=== PATIENT | male | born 1995 | race Hispanic/Latino ===

== ENCOUNTER 2017-10-09 20:20 | Emergency (ER) | payer SELFPAY ==
--- NOTE | 2017-10-09 21:36 | EDPHYS ---
Physician Documentation [facility] Name: Chang Cr Age: 22 yrs Sex: Male : 1995 Arrival Date: 10/09/2017 Time: 20:33 Bed 14 Private MD: ED Physician Toribio Maurice HPI: 10/09 20:47 This 22 yrs old Male presents to ER via Ambulatory with complaints of Ear Pain.cp 20:47 The patient presents with pain. cp 20:47 The complaints affect the right ear and left ear. cp 20:47 Onset: The symptoms/episode began/occurred gradually. Associated signs and symptoms: cp Pertinent negatives: cough, fever, sinus trouble, sore throat, vomiting. Severity of symptoms: in the emergency department the symptoms are unchanged despite home interventions. Historical: - Allergies: 20:34 No Known Allergies; lk1 - PMHx: 20:34 Depression; Hypothyroidism; lk1 - PSHx: 20:34 None; lk1 - Immunization history:: Adult Immunizations up to date. - Social history:: Smoking status: Patient uses tobacco products, smokes one-half pack cigarettes per day. ROS: 20:50 Constitutional: Negative for body aches, chills, fever, poor PO intake. cp 20:50 Eyes: Negative for injury, pain, redness, and discharge. cp 20:50 ENT: Positive for ear pain, Negative for drainage from ear(s), sinus congestion, sinus pain, sore throat, difficulty swallowing, difficulty handling secretions. 20:50 Cardiovascular: Negative for chest pain. 20:50 Respiratory: Negative for cough, wheezing. 20:50 Abdomen/GI: Negative for abdominal pain, vomiting, diarrhea, constipation. 20:50 Skin: Negative for cellulitis, rash. 20:50 Neuro: Negative for headache. 20:50 All other systems are negative. Exam: 20:56 Head/Face: Normocephalic, atraumatic. cp 20:56 Constitutional: The patient appears in no acute distress, alert, awake, non-toxic, well developed, well nourished. 20:56 Eyes: Periorbital structures: appear normal, Pupils: equal, round, and reactive to light and accomodation, Extraocular movements: intact throughout, Conjunctiva: normal, no exudate, no injection, Sclera: no appreciated abnormality, Lids and lashes: appear normal, bilaterally. 20:56 ENT: External ear(s): are unremarkable, Ear canal(s): cerumen impaction, that is moderate, bilaterally, TM's: not visable, because of cerumen, Nose: is normal, Mouth: Lips: moist, Oral mucosa: moist, Posterior pharynx: Airway: no evidence of obstruction, patent, Tonsils: are normal in appearance, Uvula: midline, non-edematous, no erythema, swelling, is not appreciated, erythema, is not appreciated, exudate, is not appreciated, Voice: is normal. 20:56 Neck: ROM/movement: is normal, is supple, without pain, no range of motions limitations, no nuchal rigidity, Lymph nodes: no appreciated lymphadenopathy. 20:56 Chest/axilla: Inspection: normal, Palpation: is normal, no crepitus, no tenderness. 20:56 Cardiovascular: Rate: normal, Rhythm: regular. 20:56 Respiratory: the patient does not display signs of respiratory distress, Respirations: normal, no use of accessory muscles, no retractions, no splinting, no tachypnea, Breath sounds: are clear throughout, no decreased breath sounds, no stridor, no wheezing. 20:56 Abdomen/GI: Exam negative for discomfort, distension, guarding, Inspection: abdomen appears normal. 20:56 Skin: cellulitis, is not appreciated, no rash present. Vital Signs: 20:35 BP 169 / 92; Pulse 95; Resp 16; Temp 98.2(O); Pulse Ox 99% on R/A; Weight 77.11 kg (R); lk1 Height 5 ft. 8 in. (172.72 cm) (R); Pain 5/10; 20:35 Body Mass Index 25.85 (77.11 kg, 172.72 cm) lk1 MDM: 20:40 Patient medically screened. cp 21:01 Data reviewed: vital signs, nurses notes, and as a result, I will discharge patient. cp Administered Medications: No medications were administered Disposition: 21:17 Cerumen Impaction. cp 23:19 Co-signature as Attending Physician, Toribio Maurice MD. rn Disposition: 10/09/17 21:36 Discharged to Home as Medical Screen. Impression: Impacted cerumen, bilateral. - Condition is Stable. - Discharge Instructions: Cerumen Impaction. - Work release form, Medication Reconciliation Form, Thank You Letter, Antibiotic Education, Prescription Opioid Use form. - Follow up: Ashley Fay; When: Tomorrow; Reason: Recheck today's complaints. - Problem is new. - Symptoms are unchanged. Signatures: Toribio Maurice MD MD rn Sandro Babb PA PA cp Kluge, Leah RN RN lk1 Jennifer Mayers RN RN bs1
--- NOTE | 2017-10-09 21:36 | ER ---
Nurse's Notes [facility] Name: Chang Cr Age: 22 yrs Sex: Male : 1995 Arrival Date: 10/09/2017 Time: 20:33 Bed 14 Private MD: Diagnosis: Impacted cerumen, bilateral Presentation: 10/09 20:33 Presenting complaint: Patient states: "My left ear has too much wax in it.". Transition lk1 of care: patient was not received from another setting of care. Onset of symptoms is unknown. Care prior to arrival: None. 20:33 Method Of Arrival: Ambulatory lk1 20:37 Acuity: PAO 4 lk1 Triage Assessment: 20:34 General: Appears in no apparent distress. Behavior is calm, cooperative, appropriate lk1 for age. Pain: Complains of pain in left ear Pain currently is 5 out of 10 on a pain scale. EENT: Reports ball of ear wax in left ear. Historical: - Allergies: 20:34 No Known Allergies; lk1 - PMHx: 20:34 Depression; Hypothyroidism; lk1 - PSHx: 20:34 None; lk1 - Immunization history:: Adult Immunizations up to date. - Social history:: Smoking status: Patient uses tobacco products, smokes one-half pack cigarettes per day. Screenin:33 Abuse screen: Denies threats or abuse. Denies injuries from another. Nutritional bs1 screening: No deficits noted. Tuberculosis screening: No symptoms or risk factors identified. Fall Risk None identified. Assessment: 20:45 General: Appears in no apparent distress. uncomfortable, Behavior is calm, cooperative, bs1 appropriate for age. Pain: Complains of pain in left ear Pain does not radiate. Neuro: Level of Consciousness is awake, alert, obeys commands, Oriented to person, place, time, situation, Appropriate for age Drum Plater are equal bilaterally Moves all extremities. Gait is steady, Speech is normal, Facial symmetry appears normal. Cardiovascular: Denies chest pain, palpitations, shortness of breath, Heart tones S1 S2 present Capillary refill < 3 seconds Patient's skin is warm and dry. Respiratory: Airway is patent Trachea midline Respiratory effort is even, unlabored, Respiratory pattern is regular, symmetrical, Breath sounds are clear bilaterally. GI: No deficits noted. No signs and/or symptoms were reported involving the gastrointestinal system. : No deficits noted. No signs and/or symptoms were reported regarding the genitourinary system. EENT: Ear canal wax noted. left ear. Reports pain in left ear. Derm: No deficits noted. No signs and/or symptoms reported regarding the dermatologic system. Musculoskeletal: Circulation, motion, and sensation intact. Capillary refill < 3 seconds, Range of motion: intact in all extremities. 21:32 Reassessment: Patient appears in no apparent distress at this time. No changes from bs1 previously documented assessment. Patient and/or family updated on plan of care and expected duration. Pain level reassessed. Patient is alert, oriented x 3, equal unlabored respirations, skin warm/dry/pink. Vital Signs: 20:35 BP 169 / 92; Pulse 95; Resp 16; Temp 98.2(O); Pulse Ox 99% on R/A; Weight 77.11 kg (R); lk1 Height 5 ft. 8 in. (172.72 cm) (R); Pain 5/10; 20:35 Body Mass Index 25.85 (77.11 kg, 172.72 cm) lk1 ED Course: 20:33 Patient arrived in ED. lk1 20:33 Triage completed. lk1 20:37 Arm band placed on right wrist. lk1 20:38 Sandro Babb PA is PHCP. cp 20:38 Toribio Maurice MD is Attending Physician. cp 21:27 Jennifer Mayers, MEGAN is Primary Nurse. bs1 21:33 Patient has correct armband on for positive identification. Bed in low position. Call bs1 light in reach. Side rails up X 1. Pulse ox on. NIBP on. 21:33 No provider procedures requiring assistance completed. Patient did not have IV access bs1 during this emergency room visit. 21:36 Ashley Fay MD is Referral Physician. cp Administered Medications: No medications were administered Outcome: 21:36 Discharge ordered by MD. cp 21:39 Medical screen evaluation completed per provider. Patient declined treatment. bs1 21:39 Condition: stable 21:39 Discharge instructions given to follow up with PCP 21:40 Patient left the ED. bs1 Signatures: Sandro Babb PA PA cp Kluge, Leah, RN RN lk1 Jennifer Mayers RN RN bs1 Corrections: (The following items were deleted from the chart) 20:37 20:33 Acuity: PAO 5 lk1 lk1 : 21:34 Condition: stable bs1 bs1 : 21:34 Discharged to home ambulatory, bs1 bs1 : 21:34 Discharge instructions given to patient, Instructed on discharge instructions, bs1 follow up and referral plans. medication usage, Demonstrated understanding of instructions, follow-up care, medications, bs1
== END 2017-10-09 21:40 | disposition home or self-care (01) ==
LOC: ER 20:20
DX: H61.23 Impacted cerumen, bilateral (principal); F17.210 Nicotine dependence, cigarettes, uncomplicated
CPT/HCPCS: 99283

== ENCOUNTER 2018-01-27 09:35 | Emergency (ER) | payer OTHER, SELFPAY ==
[2018-01-27] MEDS ORDERED: TETANUS & DIPHTHERIA TOX,ADULT 0.5 ML VIAL ONE (10:31)
[2018-01-27] MEDS ORDERED: HYDROCODONE/APAP 7.5/325 MG TAB ONE (10:31)
[2018-01-27] MEDS ORDERED: DOXYCYCLINE 100 MG CAP PO ONE (10:31)
--- NOTE | 2018-01-27 10:52 | RAD REPORT ---
EXAM DESCRIPTION: RAD - Hand Left 3 View - 01/27/2018 10:39 am CLINICAL HISTORY: SMASH INJURY COMPARISON: No comparisons FINDINGS: Soft tissue defect is seen in the region of the distal second digit. No fracture or foreig n body.
--- NOTE | 2018-01-27 11:09 | ER ---
Nurse's Notes [facility] Name: Chang Cr Age: 22 yrs Sex: Male : 1995 Arrival Date: 01/27/2018 Time: 09:37 Bed 13 Private MD: Diagnosis: Deep tissue avulsion of finger tip Presentation: 01/27 09:44 Presenting complaint: Patient states: Laceration to left thumb and index finger while hb working on heavy machinery. Transition of care: patient was not received from another setting of care. Onset of symptoms was January 27, 2018. Risk Assessment: Do you want to hurt yourself or someone else? Patient reports no desire to harm self or others. Initial Sepsis Screen: Does the patient meet any 2 criteria? No. Patient's initial sepsis screen is negative. Does the patient have a suspected source of infection? No. Patient's initial sepsis screen is negative. Care prior to arrival: None. 09:44 Method Of Arrival: Ambulatory hb 09:44 Acuity: PAO 4 hb Historical: - Allergies: 09:49 No Known Allergies; hb - Home Meds: 09:49 Effexor Oral 75 mg daily [Active]; hb - PMHx: 09:49 Depression; Hypothyroidism; hb - PSHx: 09:49 None; hb - Immunization history:: Adult Immunizations up to date. - Social history:: Smoking status: Patient uses tobacco products, smokes one pack cigarettes per day. - Ebola Screening: : No symptoms or risks identified at this time. Screenin:58 Abuse screen: Denies threats or abuse. Nutritional screening: No deficits noted. mb3 Tuberculosis screening: No symptoms or risk factors identified. Fall Risk None identified. Assessment: 09:56 General: Appears distressed, uncomfortable, Behavior is calm, cooperative, appropriate mb3 for age. Pain: Complains of pain in palmar aspect of distal phalanx of right index finger, palmar aspect of middle phalanx of right index finger and palmar aspect of distal phalanx of right thumb Pain does not radiate. Neuro: No deficits noted. Cardiovascular: No deficits noted. Respiratory: No deficits noted. GI: No deficits noted. : No deficits noted. Musculoskeletal: Range of motion: intact in all extremities, Reports pain in palmar aspect of distal phalanx of right index finger, palmar aspect of middle phalanx of right index finger and palmar aspect of distal phalanx of right thumb. Injury Description: Avulsion sustained to palmar aspect of distal phalanx of right index finger and palmar aspect of middle phalanx of right index finger is partial Laceration sustained to palmar aspect of distal phalanx of right thumb is clean, superficial, 0.5 to 2.5 cm long. Vital Signs: 09:48 BP 130 / 68; Pulse 82; Resp 16; Temp 98; Pulse Ox 100% on R/A; Pain 3/10; hb 11:36 BP 126 / 66; Pulse 77; Resp 16; Pulse Ox 99% on R/A; mb3 ED Course: 09:37 Patient arrived in ED. as 09:45 Frances Max F[facility]-C [facility]. snw 09:45 Sandro Rogers MD is Attending Physician. snw 09:48 Triage completed. hb 09:49 Arm band placed on right wrist. hb 09:50 Rafita Grullon, MEGAN is Primary Nurse. mb3 09:58 Patient has correct armband on for positive identification. Bed in low position. Call mb3 light in reach. 10:38 X-ray completed. Portable x-ray completed in exam room. Patient tolerated procedure mh1 well. 10:39 Hand Left 3 View XRAY In Process Unspecified. EDMS 11:05 Merrill Winters MD is Referral Physician. snw 11:34 No provider procedures requiring assistance completed. Patient did not have IV access mb3 during this emergency room visit. Dressings: Adaptic X 2; palmar aspect of distal phalanx of right index finger, palmar aspect of middle phalanx of right index finger and palmar aspect of proxima; phalanx of right index finger Kerlix X 2; palmar aspect of distal phalanx of right index finger, palmar aspect of middle phalanx of right index finger and palmar aspect of proxima; phalanx of right index finger non-adherent dressing Tube gauze X 1; palmar aspect of distal phalanx of right index finger, palmar aspect of middle phalanx of right index finger and palmar aspect of proxima; phalanx of right index finger. Wound care: to avulsion located on palmar aspect of distal phalanx of right index finger, palmar aspect of middle phalanx of right index finger and palmar aspect of proxima; phalanx of right index finger was cleaned with soap and water, dressed with Neosporin, Kerlix, cling, Vaseline gauze, Patient tolerated well. Administered Medications: 10:32 Drug: [place] (7.5 mg-325 mg) 1 tabs Route: PO; mb3 11:31 Follow up: Response: No adverse reaction mb3 10:32 Drug: Doxycycline 100 mg Route: PO; mb3 11:33 Follow up: Response: No adverse reaction mb3 10:32 Drug: Tetanus-Diphtheria Toxoid Adult 0.5 ml {Senior Staff Psychologist: [employer]. Exp: mb3 03/26/2020. Lot #: [id number]. } Route: IM; Site: right deltoid; 11:33 Follow up: Response: No adverse reaction mb3 11:10 Drug: Zofran 4 mg Route: PO; mb3 11:33 Follow up: Response: No adverse reaction mb3 Outcome: 11:08 Discharge ordered by MD. watson 11:37 Patient left the ED. mb3 Signatures: Dispatcher [employer] EDMS Frances Max, NENO-C AIRPLANE COVERER-Csnw [facility] Dianna Patel Heather, RN RN Rafita Grullon RN RN mb3 Corrections: (The following items were deleted from the chart) 09:49 09:44 Acuity: PAO 4 hb hb 09:52 09:44 Presenting complaint: Patient states: Laceration to left index finger while hb working on heavy machinery hb
--- NOTE | 2018-01-27 11:09 | EDPHYS ---
Physician Documentation [facility] Name: Chang Cr Age: 22 yrs Sex: Male : 1995 Arrival Date: 01/27/2018 Time: 09:37 Bed 13 Private MD: ED Physician Sandro Rogers HPI: 01/27 10:17 This 22 yrs old Male presents to ER via Ambulatory with complaints of Finger snw Injury. 10:17 The patient or guardian reports injury, a laceration, irregular, deep skin avulsion. snw The complaints affect the left index fingertip. Context: The problem was sustained at work, resulted from a crush injury. Onset: The symptoms/episode began/occurred suddenly, just prior to arrival. Associated signs and symptoms: The patient has no apparent associated signs or symptoms. Severity of symptoms: At their worst the symptoms were moderate. The patient has not experienced similar symptoms in the past. It is unknown whether or not the patient has recently seen a physician. Historical: - Allergies: 09:49 No Known Allergies; hb - Home Meds: 09:49 Effexor Oral 75 mg daily [Active]; hb - PMHx: 09:49 Depression; Hypothyroidism; hb - PSHx: 09:49 None; hb - Immunization history:: Adult Immunizations up to date. - Social history:: Smoking status: Patient uses tobacco products, smokes one pack cigarettes per day. - Ebola Screening: : No symptoms or risks identified at this time. ROS: 10:16 Constitutional: Negative for fever, chills, and weight loss, Eyes: Negative for injury, snw pain, redness, and discharge, ENT: Negative for injury, pain, and discharge, Neck: Negative for injury, pain, and swelling, Cardiovascular: Negative for chest pain, palpitations, and edema, Respiratory: Negative for shortness of breath, cough, wheezing, and pleuritic chest pain, Abdomen/GI: Negative for abdominal pain, nausea, vomiting, diarrhea, and constipation, Back: Negative for injury and pain, : Negative for injury, bleeding, discharge, and swelling, Skin: Negative for injury, rash, and discoloration, Neuro: Negative for headache, weakness, numbness, tingling, and seizure. 10:16 MS/extremity: Positive for injury or acute deformity, pain, of the left index fingertip, laceration . Exam: 10:15 Constitutional: This is a well developed, well nourished patient who is awake, alert, snw and in no acute distress. Head/Face: Normocephalic, atraumatic. Eyes: Pupils equal round and reactive to light, extra-ocular motions intact. Lids and lashes normal. Conjunctiva and sclera are non-icteric and not injected. Cornea within normal limits. Periorbital areas with no swelling, redness, or edema. ENT: Nares patent. No nasal discharge, no septal abnormalities noted. Tympanic membranes are normal and external auditory canals are clear. Oropharynx with no redness, swelling, or masses, exudates, or evidence of obstruction, uvula midline. Mucous membranes moist. Neck: Trachea midline, no thyromegaly or masses palpated, and no cervical lymphadenopathy. Supple, full range of motion without nuchal rigidity, or vertebral point tenderness. No Meningismus. Chest/axilla: Normal chest wall appearance and motion. Nontender with no deformity. No lesions are appreciated. Cardiovascular: Regular rate and rhythm with a normal S1 and S2. No gallops, murmurs, or rubs. Normal PMI, no JVD. No pulse deficits. Respiratory: Lungs have equal breath sounds bilaterally, clear to auscultation and percussion. No rales, rhonchi or wheezes noted. No increased work of breathing, no retractions or nasal flaring. Abdomen/GI: Soft, non-tender, with normal bowel sounds. No distension or tympany. No guarding or rebound. No evidence of tenderness throughout. Back: No spinal tenderness. No costovertebral tenderness. Full range of motion. Neuro: Awake and alert, GCS 15, oriented to person, place, time, and situation. Cranial nerves II-XII grossly intact. Motor strength 5/5 in all extremities. Sensory grossly intact. Cerebellar exam normal. Normal gait. Psych: Awake, alert, with orientation to person, place and time. Behavior, mood, and affect are within normal limits. 10:15 Musculoskeletal/extremity: Extremities: grossly normal except: noted in the left index fingertip pad: ROM: intact in all extremities, Circulation is intact in all extremities. Sensation intact. Compartment Syndrome exam of affected extremity: is normal. 10:15 Skin: Appearance: normal except for affected area, deep skin avulsion of pad of left index fingertip, bleeding controlled. Vital Signs: 09:48 BP 130 / 68; Pulse 82; Resp 16; Temp 98; Pulse Ox 100% on R/A; Pain 3/10; hb 11:36 BP 126 / 66; Pulse 77; Resp 16; Pulse Ox 99% on R/A; mb3 MDM: 09:50 Patient medically screened. snw 11:12 Data reviewed: vital signs, nurses notes. Data interpreted: Pulse oximetry: on room air snw is 100 %. Interpretation: normal. Counseling: I had a detailed discussion with the patient and/or guardian regarding: the historical points, exam findings, and any diagnostic results supporting the discharge/admit diagnosis, the presence of at least one elevated blood pressure reading (>120/80) during this emergency department visit, radiology results, the need for outpatient follow up, to return to the emergency department if symptoms worsen or persist or if there are any questions or concerns that arise at home. Special discussion: I have referred the patient to see his PCP for further evaluation of high blood pressure. I discussed in detail with the patient the higher chance of wound infection based on his presenting history. Based on the history and exam findings, there is no indication for further emergent testing or inpatient evaluation. I discussed with the patient/guardian the need to see the hand specialist for further evaluation of the symptoms. I discussed with the patient/guardian the need to see the primary care provider for further evaluation of the symptoms. 01/27 10:13 Order name: Hand Left 3 View XRAY; Complete Time: 10:54 snw 01/27 11:00 Order name: Wound Care: hibiclens; Complete Time: 11:31 snw 01/27 11:00 Order name: Wound dressing: nonadherent and then pressure dressing; Complete Time: 11:31snw 01/27 11:14 Order name: Finger Splint; Complete Time: 11:31 snw Administered Medications: 10:32 Drug: [place] (7.5 mg-325 mg) 1 tabs Route: PO; mb3 11:31 Follow up: Response: No adverse reaction mb3 10:32 Drug: Doxycycline 100 mg Route: PO; mb3 11:33 Follow up: Response: No adverse reaction mb3 10:32 Drug: Tetanus-Diphtheria Toxoid Adult 0.5 ml {Vice President Digital Strategist: [employer]. Exp: mb3 03/26/2020. Lot #: [id number]. } Route: IM; Site: right deltoid; 11:33 Follow up: Response: No adverse reaction mb3 11:10 Drug: Zofran 4 mg Route: PO; mb3 11:33 Follow up: Response: No adverse reaction mb3 Disposition: 15:29 Co-signature as Attending Physician, Sandro Rogers MD I agree with the assessment and bessie plan of care. Disposition: 01/27/18 11:08 Discharged to Home. Impression: Deep tissue avulsion of finger tip. - Condition is Stable. - Discharge Instructions: Deep Skin Avulsion, VIS, Tetanus, Diphtheria (Td) - [facility]. - Prescriptions for Zofran 4 mg Oral Tablet - take 1 tablet by ORAL route 4 times per day As needed; 20 tablet. Doxycycline Hyclate 100 mg Oral Tablet - take 1 tablet by ORAL route every 12 hours; 20 tablet. Diclofenac Sodium 75 mg Oral Tablet Sustained Release - take 1 tablet by ORAL route 2 times per day; 30 tablet. - Work release form, Medication Reconciliation Form, Thank You Letter, Antibiotic Education, Prescription Opioid Use form. - Follow up: Private Physician; When: 2 - 3 days; Reason: Recheck today's complaints, Continuance of care, Re-evaluation by your physician. Follow up: Merrill Winters MD; When: 1 - 2 days; Reason: Recheck today's complaints, Continuance of care. Signatures: Dispatcher [employer] EDSandro Walker MD MD cha Therrien, Shelly, EMPLOYEE WELLNESS/FITNESS COORDINATOR-C EMPLOYEE WELLNESS/FITNESS COORDINATOR-Csnw Cortney Morley RN RN Rafita Grullon RN RN mb3 Corrections: (The following items were deleted from the chart) 11:37 11:08 01/27/2018 11:08 Discharged to Home. Impression: Deep tissue avulsion of finger mb3 tip. Condition is Stable. Forms are Medication Reconciliation Form, Thank You Letter, Antibiotic Education, Prescription Opioid Use. Follow up: Private Physician; When: 2 - 3 days; Reason: Recheck today's complaints, Continuance of care, Re-evaluation by your physician. Follow up: Merrill Winters; When: 1 - 2 days; Reason: Recheck today's complaints, Continuance of care. snw
[2018-01-27] MEDS ORDERED: ONDANSETRON 4 MG (ODT) TAB ONE (11:11)
== END 2018-01-27 11:37 | disposition home or self-care (01) ==
LOC: ER 09:35
DX: S61.211A Laceration without foreign body of left index finger without damage to nail, initial encounter (principal); E03.9 Hypothyroidism, unspecified; F17.210 Nicotine dependence, cigarettes, uncomplicated; X58.XXXA Exposure to other specified factors, initial encounter; Y93.9 Activity, unspecified; Y92.9 Unspecified place or not applicable; Y99.0 Civilian activity done for income or pay; Z23 Encounter for immunization
CPT/HCPCS: 90714; 99283

== ENCOUNTER 2018-09-06 12:00 | Emergency (ER) | payer BC, OTHER ==
[2018-09-06 13:14] LABS: Absolute Lymphocytes (CBC) 3.2 K/uL (0.7-4.9); Absolute Monocytes 0.8 K/uL (0.1-1.3); Absolute Neutrophil 2.9 K/uL (1.8-8.0); Basophils % 0.7 % (0-1.3); Eosinophils % 4.8 % (0-4.4); Hematocrit 42.4 % (39.6-49.0); Lymphocytes % 44.3 % (15.3-44.8); MPV 9.2 fL (7.6-11.3); Monocytes % 10.5 % (3.3-12.3)
[2018-09-06] MEDS ORDERED: MAGNE/ALUM HYDROXD 30 ML UCUP ONE (13:20)
[2018-09-06] MEDS ORDERED: LIDOCAINE VISCOUS 2% SOLN 15 ML UDC ONE (13:20)
[2018-09-06] MEDS ORDERED: ONDANSETRON 4 MG/2 ML VIAL ONE (13:20)
[2018-09-06] MEDS ORDERED: FAMOTIDINE 20 MG/2 ML VIAL IV ONE (13:20)
[2018-09-06] MEDS ORDERED: NA CHLORIDE 0.9% 1,000 ML ONE (13:20)
[2018-09-06 13:29] LABS: ALT/SGPT 54 U/L (12-78); AST/SGOT 31 U/L (15-37); Albumin 4.1 g/dL (3.4-5.0); Alkaline Phosphatase 154 U/L (45-117); BUN Blood Urea Nitrogen 16 mg/dL (7-18); Bicarbonate 28 mmol/L (21-32); Bilirubin Direct < 0.1 mg/dL (0-0.2); Bilirubin Total 0.2 mg/dL (0.2-1.0); Glucose Level 94 mg/dL (74-106); Lipase 94 U/L (73-393); Potassium 3.6 mmol/L (3.5-5.1); Protein, Total 7.7 g/dL (6.4-8.2); Sodium Level 139 mmol/L (136-145)
--- NOTE | 2018-09-06 14:38 | RAD REPORT ---
EXAM DESCRIPTION: CT - Abdomen Pelvis W Contrast - 09/06/2018 2:28 pm CLINICAL HISTORY: Abdominal pain. Vomiting COMPARISON: 2016 TECHNIQUE: Computed axial tomography of the abdomen and pelvis was obtained. 100 cc Isovue-300 is ad ministered intravenously. Oral contrast was given. All CT scans are performed using dose optimization technique as appropriate and may include automated exposure control or mA/KV adjustment according to patient size. FINDINGS: The liver, spleen, pancreas, adrenals and kidneys appear unremarkable. The appendix is normal caliber. There is no evidence of diverticulitis IMPRESSION: No acute abnormality displayed
--- NOTE | 2018-09-06 14:55 | EDPHYS ---
Physician Documentation [facility] Name: Chang Cr Age: 23 yrs Sex: Male : 1995 Arrival Date: 09/06/2018 Time: 12:02 Bed 5 Private MD: Ashley Garner ED Physician Suhail Das HPI: 09/06 14:16 This 23 yrs old Male presents to ER via Ambulatory with complaints of ma2 Abdominal Pain, Vomiting. 14:16 The patient presents to the emergency department with nausea, vomiting. Onset: The ma2 symptoms/episode began/occurred gradually, 1 day(s) ago. Associated signs and symptoms: Pertinent positives: abdominal pain, Pertinent negatives: anorexia, belching, diarrhea, fever, hematuria. Severity of symptoms: At their worst the symptoms were moderate in the emergency department the symptoms are unchanged. The patient has not experienced similar symptoms in the past. Historical: - Allergies: 12:32 No Known Allergies; la1 - PMHx: 12:32 Depression; Hypothyroidism; la1 - Immunization history:: Adult Immunizations unknown. - Social history:: Smoking status: Patient uses tobacco products, smokes one pack cigarettes per day. Patient/guardian denies using alcohol, street drugs, The patient lives with family. - Ebola Screening: : No symptoms or risks identified at this time. - Family history:: not pertinent. - Hospitalizations: : No recent hospitalization is reported. ROS: 14:16 Eyes: Negative for injury, pain, redness, and discharge, ENT: Negative for injury, ma2 pain, and discharge, Neck: Negative for injury, pain, and swelling, Cardiovascular: Negative for chest pain, palpitations, and edema, Respiratory: Negative for shortness of breath, cough, wheezing, and pleuritic chest pain, Psych: Negative for depression, anxiety, suicide ideation, homicidal ideation, and hallucinations, Allergy/Immunology: Negative for hives, rash, and allergies, Endocrine: Negative for neck swelling, polydipsia, polyuria, polyphagia, and marked weight changes. 14:16 Abdomen/GI: Positive for abdominal pain, Negative for vomiting. Exam: 14:16 Constitutional: This is a well developed, well nourished patient who is awake, alert, ma2 and in no acute distress. Chest/axilla: Normal chest wall appearance and motion. Nontender with no deformity. No lesions are appreciated. Cardiovascular: Regular rate and rhythm with a normal S1 and S2. No gallops, murmurs, or rubs. Normal PMI, no JVD. No pulse deficits. Respiratory: Lungs have equal breath sounds bilaterally, clear to auscultation and percussion. No rales, rhonchi or wheezes noted. No increased work of breathing, no retractions or nasal flaring. 14:16 MS/ Extremity: Pulses equal, no cyanosis. Neurovascular intact. Full, normal range of motion. Neuro: Awake and alert, GCS 15, oriented to person, place, time, and situation. Cranial nerves II-XII grossly intact. Motor strength 5/5 in all extremities. Sensory grossly intact. Cerebellar exam normal. Normal gait. 14:16 Abdomen/GI: Inspection: abdomen appears normal, Palpation: moderate abdominal tenderness, in all quadrants, Liver: no appreciated palpable abnormalities. Vital Signs: 12:32 BP 138 / 90; Pulse 105; Resp 18; Pulse Ox 98% on R/A; Weight 72.57 kg; Height 5 ft. 8 la1 in. (172.72 cm); 13:45 BP 126 / 80; Pulse 79; Resp 16 S; Pulse Ox 100% on R/A; jl7 15:10 BP 130 / 78; Pulse 65; Resp 16 S; Pulse Ox 100% on R/A; jl7 12:32 Body Mass Index 24.33 (72.57 kg, 172.72 cm) la1 MDM: 12:23 Patient medically screened. [facility] 14:16 Differential diagnosis: gastritis, cholecystitis, pancreatitis, appendicitis, ma2 diverticulitis, viral gastroenteritis. 14:52 Data reviewed: vital signs, nurses notes. Counseling: I had a detailed discussion with ma2 the patient and/or guardian regarding: the historical points, exam findings, and any diagnostic results supporting the discharge/admit diagnosis, the presence of at least one elevated blood pressure reading (>120/80) during this emergency department visit, the need for outpatient follow up. Response to treatment: the patient's symptoms have markedly improved after treatment. 09/06 12:42 Order name: Basic Metabolic Panel; Complete Time: 14:12 [facility] 09/06 12:42 Order name: CBC with Diff; Complete Time: 14:12 [facility] 09/06 12:42 Order name: Creatinine for Radiology; Complete Time: 14:12 pr2 09/06 12:42 Order name: Hepatic Function; Complete Time: 14:12 ma2 09/06 12:42 Order name: Lipase; Complete Time: 14:12 ma2 09/06 12:42 Order name: CT Abd/Pelvis - W/Contrast; Complete Time: 14:51 ma2 09/06 12:42 Order name: IV Saline Lock; Complete Time: 13:25 ma2 09/06 12:42 Order name: Labs collected and sent; Complete Time: 13:25 ma2 Administered Medications: 13:19 Drug: NS 0.9% 1000 ml Route: IV; Rate: 1 bolus; Site: right antecubital; jl7 14:20 Follow up: IV Status: Completed infusion; IV Intake: 1000ml jl7 13:20 Drug: Pepcid 20 mg Route: IVP; Site: right antecubital; jl7 13:45 Follow up: Response: No adverse reaction jl7 13:22 Drug: Zofran 4 mg Route: IVP; Site: right antecubital; jl7 13:45 Follow up: Response: No adverse reaction jl7 14:44 Drug: GI Cocktail without - (Maalox Suspension 30 ml, Lidocaine Liquid 2 % 15 jl7 ml) Route: PO; 15:10 Follow up: Response: No adverse reaction jl7 Disposition: 09/06/18 14:53 Discharged to Home. Impression: Pain localized to upper abdomen. - Condition is Stable. - Discharge Instructions: Abdominal Pain, Adult. - Prescriptions for Zofran 4 mg Oral Tablet - take 1 tablet by ORAL route every 12 hours As needed; 20 tablet. Pepcid 20 mg Oral Tablet - take 1 tablet by ORAL route once daily for 10 days; 10 tablet. - Medication Reconciliation Form, Thank You Letter, Antibiotic Education, Prescription Opioid Use form. - Follow up: Private Physician; When: Tomorrow; Reason: Continuance of care. Signatures: Dispatcher [employer] EDCharles Dick RN RN Concha Guardado RN RN jl7 Suhail Das MD MD ma2 Corrections: (The following items were deleted from the chart) 15:12 14:53 09/06/2018 14:53 Discharged to Home. Impression: Pain localized to upper abdomen. jl7 Condition is Stable. Forms are Medication Reconciliation Form, Thank You Letter, Antibiotic Education, Prescription Opioid Use. Follow up: Private Physician; When: Tomorrow; Reason: Continuance of care. ma2
--- NOTE | 2018-09-06 14:55 | ER ---
Nurse's Notes [facility] Name: Chang Cr Age: 23 yrs Sex: Male : 1995 Arrival Date: 09/06/2018 Time: 12:02 Bed 5 Private MD: Ashley Garner Diagnosis: Pain localized to upper abdomen Presentation: 09/06 12:31 Presenting complaint: Patient states: Whenever I get upset about something my abd hurts la1 real bad and this morning it happened again and I threw up. Pt reports right sided abd pain. Transition of care: patient was not received from another setting of care. Onset of symptoms was September 06, 2018. Risk Assessment: Do you want to hurt yourself or someone else? Patient reports no desire to harm self or others. Initial Sepsis Screen: Does the patient meet any 2 criteria? No. Patient's initial sepsis screen is negative. Does the patient have a suspected source of infection? No. Patient's initial sepsis screen is negative. Care prior to arrival: None. 12:31 Method Of Arrival: Ambulatory la1 12:31 Acuity: PAO 3 la1 Historical: - Allergies: 12:32 No Known Allergies; la1 - PMHx: 12:32 Depression; Hypothyroidism; la1 - Immunization history:: Adult Immunizations unknown. - Social history:: Smoking status: Patient uses tobacco products, smokes one pack cigarettes per day. Patient/guardian denies using alcohol, street drugs, The patient lives with family. - Ebola Screening: : No symptoms or risks identified at this time. - Family history:: not pertinent. - Hospitalizations: : No recent hospitalization is reported. Screenin:33 Abuse screen: Denies threats or abuse. Nutritional screening: No deficits noted. la1 Tuberculosis screening: No symptoms or risk factors identified. Fall Risk None identified. Assessment: 12:32 General: Appears in no apparent distress. Behavior is calm, cooperative. Pain: la1 Complains of pain in abdomen. Neuro: Level of Consciousness is awake, alert, obeys commands, Oriented to person, place, time, situation. Cardiovascular: Capillary refill < 3 seconds Patient's skin is warm and dry. Respiratory: Airway is patent Respiratory effort is even, unlabored, Respiratory pattern is regular, symmetrical, Breath sounds are clear bilaterally. GI: Abdomen is round non-distended, Bowel sounds present X 4 quads. Abd is soft X 4 quads Abdomen is tender to palpation in right upper quadrant and right lower quadrant. : No signs and/or symptoms were reported regarding the genitourinary system. 15:00 Reassessment: Dr. Das at bedside discussing plan of care. jl7 Vital Signs: 12:32 BP 138 / 90; Pulse 105; Resp 18; Pulse Ox 98% on R/A; Weight 72.57 kg; Height 5 ft. 8 la1 in. (172.72 cm); 13:45 BP 126 / 80; Pulse 79; Resp 16 S; Pulse Ox 100% on R/A; jl7 15:10 BP 130 / 78; Pulse 65; Resp 16 S; Pulse Ox 100% on R/A; jl7 12:32 Body Mass Index 24.33 (72.57 kg, 172.72 cm) la1 ED Course: 12:02 Patient arrived in ED. mr 12:03 Ashley Garner is Private Physician. mr 12:22 Suhail Das MD is Attending Physician. ma2 12:31 Charles Cloud, MEGAN is Primary Nurse. la1 12:31 Triage completed. la1 12:32 Arm band placed on left wrist. la1 12:33 Call light in reach. Side rails up X 1. la1 12:33 No provider procedures requiring assistance completed. la1 13:00 Initial lab(s) drawn, by me, sent to lab. Inserted saline lock: 20 gauge in right jl7 antecubital area, using aseptic technique. Blood collected. 14:28 CT Abd/Pelvis - W/Contrast In Process Unspecified. EDMS 14:28 CT completed. Patient tolerated procedure well. Patient moved back from CT. kw1 15:11 IV discontinued, intact, bleeding controlled, No redness/swelling at site. Pressure jl7 dressing applied. Administered Medications: 13:19 Drug: NS 0.9% 1000 ml Route: IV; Rate: 1 bolus; Site: right antecubital; jl7 14:20 Follow up: IV Status: Completed infusion; IV Intake: 1000ml jl7 13:20 Drug: Pepcid 20 mg Route: IVP; Site: right antecubital; jl7 13:45 Follow up: Response: No adverse reaction jl7 13:22 Drug: Zofran 4 mg Route: IVP; Site: right antecubital; jl7 13:45 Follow up: Response: No adverse reaction jl7 14:44 Drug: GI Cocktail without - (Maalox Suspension 30 ml, Lidocaine Liquid 2 % 15 jl7 ml) Route: PO; 15:10 Follow up: Response: No adverse reaction jl7 Intake: 14:20 IV: 1000ml; Total: 1000ml. jl7 Outcome: 14:53 Discharge ordered by . eusebio 15:12 Discharged to home ambulatory, with family. jl7 15:12 Condition: stable 15:12 Discharge instructions given to patient, family, Instructed on discharge instructions, follow up and referral plans. medication usage, Demonstrated understanding of instructions, follow-up care, medications, Prescriptions given X 2. 15:12 Patient left the ED. jl7 Signatures: Dispatcher [employer] [facility] Beverly Mendoza Lee RN RN la1 Concha Guerrero RN RN jl7 Kellie Vitale1 Suhail Das MD MD ma2
== END 2018-09-06 15:12 | disposition home or self-care (01) ==
LOC: ER 12:00
DX: R10.10 Upper abdominal pain, unspecified (principal); F17.210 Nicotine dependence, cigarettes, uncomplicated
CPT/HCPCS: 36415; 74177; 80048; 80076; 83690; 85025; 96361; 96374; 96375; 99284; J2405; J7030; Q9967

== ENCOUNTER 2018-10-29 22:55 | Emergency (ER) | payer BC ==
[2018-10-29] MEDS ORDERED: ONDANSETRON 4 MG/2 ML VIAL ONE (23:59)
[2018-10-29] MEDS ORDERED: FAMOTIDINE 20 MG/2 ML VIAL IV ONE (23:59)
[2018-10-30 00:18] LABS: Absolute Lymphocytes (CBC) 3.6 K/uL (0.7-4.9); Absolute Monocytes 0.8 K/uL (0.1-1.3); Absolute Neutrophil 3.8 K/uL (1.8-8.0); Eosinophils % 2.8 % (0-4.4); Hematocrit 41.4 % (39.6-49.0); Lymphocytes % 42.4 % (15.3-44.8); Monocytes % 9.1 % (3.3-12.3); RBC Red Blood Cell Count 4.54 M/uL (4.33-5.43)
[2018-10-30 00:28] LABS: ALT/SGPT 138 U/L (12-78); AST/SGOT 77 U/L (15-37); Albumin 3.9 g/dL (3.4-5.0); Alkaline Phosphatase 150 U/L (45-117); BUN Blood Urea Nitrogen 14 mg/dL (7-18); Bicarbonate 29 mmol/L (21-32); Bilirubin Direct < 0.1 mg/dL (0-0.2); Bilirubin Total 0.2 mg/dL (0.2-1.0); Glucose Level 95 mg/dL (74-106); Lipase 89 U/L (73-393); Potassium 3.9 mmol/L (3.5-5.1); Protein, Total 7.3 g/dL (6.4-8.2); Sodium Level 140 mmol/L (136-145)
--- NOTE | 2018-10-30 00:39 | ER ---
Nurse's Notes [facility] Name: Chang Cr Age: 23 yrs Sex: Male : 1995 Arrival Date: 10/29/2018 Time: 22:58 Bed 20 Private MD: Negrita Garner C Diagnosis: Other abdominal pain-left side Presentation: 10/29 23:00 Presenting complaint: Patient states: I am having the same symptoms as the last time I ed1 was here but I missed work today and they said I need a note. I don't really want another CT scan. Transition of care: patient was not received from another setting of care. Onset of symptoms was October 29, 2018. Risk Assessment: Do you want to hurt yourself or someone else? Patient reports no desire to harm self or others. Initial Sepsis Screen: Does the patient meet any 2 criteria? No. Patient's initial sepsis screen is negative. Does the patient have a suspected source of infection? No. Patient's initial sepsis screen is negative. Care prior to arrival: None. 23:00 Method Of Arrival: Ambulatory ed1 23:00 Acuity: PAO 3 ed1 Triage Assessment: 23:04 General: Appears in no apparent distress. Behavior is calm, cooperative. Pain: Denies ed1 pain. GI: Reports bloody stool, nausea. Historical: - Allergies: 23:04 No Known Allergies; ed1 - Home Meds: 23:04 Unknown depression medication [Active]; ed1 - PMHx: 23:04 Depression; Hypothyroidism; ed1 - PSHx: 23:04 None; ed1 - Immunization history:: Adult Immunizations up to date. - Social history:: Smoking status: Patient uses tobacco products, smokes one-half pack cigarettes per day. - Ebola Screening: : Patient negative for fever greater than or equal to 101.5 degrees Fahrenheit, and additional compatible Ebola Virus Disease symptoms Patient denies exposure to infectious person Patient denies travel to an Ebola-affected area in the 21 days before illness onset No symptoms or risks identified at this time. Screenin:42 Abuse screen: Denies threats or abuse. Denies injuries from another. Nutritional cc3 screening: No deficits noted. Tuberculosis screening: No symptoms or risk factors identified. Fall Risk Ambulatory Aid- None/Bed Rest/Nurse Assist (0 pts). Gait- Normal/Bed Rest/Wheelchair (0 pts) Mental Status- Oriented to own ability (0 pts). Assessment: 23:42 General: Appears in no apparent distress. comfortable, Behavior is calm, cooperative, cc3 appropriate for age. Pain: Denies pain. Neuro: Level of Consciousness is awake, alert, obeys commands, Oriented to person, place, time, situation, Appropriate for age. Cardiovascular: Denies chest pain, Patient's skin is warm and dry. Respiratory: Airway is patent Respiratory effort is even, unlabored, Respiratory pattern is regular, symmetrical. GI: Abdomen is round non-distended. : No signs and/or symptoms were reported regarding the genitourinary system. EENT: No signs and/or symptoms were reported regarding the EENT system. Derm: No signs and/or symptoms reported regarding the dermatologic system. Musculoskeletal: Circulation, motion, and sensation intact. Range of motion: intact in all extremities. 10/30 00:18 Reassessment: Patient appears in no apparent distress at this time. Patient and/or cc3 family updated on plan of care and expected duration. Pain level reassessed. Patient is alert, oriented x 3, equal unlabored respirations, skin warm/dry/pink. PA Page did rectal exam and said it was negative for occult blood. 00:50 Reassessment: Patient appears in no apparent distress at this time. Patient and/or cc3 family updated on plan of care and expected duration. Pain level reassessed. Patient is alert, oriented x 3, equal unlabored respirations, skin warm/dry/pink. PA Page discharged the patient home, no prescription given. IV cannula removed and patient left ER vitally stable and ambulatory with his girl friend. Patient denies pain at this time. Patient states feeling better. Patient states symptoms have improved. Vital Signs: 10/29 23:04 BP 133 / 90; Pulse 106; Resp 18; Temp 98.5(O); Pulse Ox 100% on R/A; Weight 74.84 kg; ed1 Height 5 ft. 8 in. (172.72 cm); Pain 0/10; 10/30 00:15 BP 127 / 81; Pulse 79; Resp 18 S; Pulse Ox 99% on R/A; cc3 10/29 23:04 Body Mass Index 25.09 (74.84 kg, 172.72 cm) ed1 ED Course: 10/29 22:58 Patient arrived in ED. am2 22:58 Negrita Garner FNP is Private Physician. am2 23:02 Triage completed. ed1 23:04 Arm band placed on left wrist. ed1 23:16 Sandro Babb PA is PHCP. cp 23:17 Toribio Maurice MD is Attending Physician. cp 23:42 Kinga Horne is Primary Nurse. cc3 23:42 Patient has correct armband on for positive identification. Placed in gown. Bed in low cc3 position. Call light in reach. Side rails up X 1. Pulse ox on. NIBP on. 10/30 00:00 Inserted saline lock: 20 gauge in right antecubital area, using aseptic technique. cc3 Blood collected. 00:37 Froy Coronel MD is Referral Physician. cp 00:50 No provider procedures requiring assistance completed. IV discontinued, intact, cc3 bleeding controlled, No redness/swelling at site. Pressure dressing applied. Administered Medications: 00:00 Drug: Pepcid 20 mg Route: IVP; Site: right antecubital; cc3 00:19 Follow up: Response: No adverse reaction cc3 00:04 Drug: Zofran 4 mg Route: IVP; Site: right antecubital; cc3 00:19 Follow up: Response: No adverse reaction; Nausea is decreased cc3 Outcome: 00:38 Discharge ordered by MD. cp 00:50 Discharged to home ambulatory, with friend. cc3 00:50 Condition: stable 00:50 Discharge instructions given to patient, Instructed on discharge instructions, follow up and referral plans. Demonstrated understanding of instructions, follow-up care. 01:00 Patient left the ED. cc3 Signatures: Sussy Burton RN RN ed1 Sandro Babb PA PA cp Savanna Tavera am2 Kinga Hrone cc3 Corrections: (The following items were deleted from the chart) 03:46 00:18 Reassessment: Patient appears in no apparent distress at this time. Patient cc3 and/or family updated on plan of care and expected duration. Pain level reassessed. Patient is alert, oriented x 3, equal unlabored respirations, skin warm/dry/pink. cc3
--- NOTE | 2018-10-30 00:39 | EDPHYS ---
Physician Documentation [facility] Name: Chang Cr Age: 23 yrs Sex: Male : 1995 Arrival Date: 10/29/2018 Time: 22:58 Bed 20 Private MD: Negrita Garner C ED Physician Toribio Maurice HPI: 10/29 23:40 This 23 yrs old Male presents to ER via Ambulatory with complaints of cp Vomiting, Bloody Stools. 23:40 The patient presents to the emergency department with abdominal pain, of the left upper cp quadrant and left lower quadrant, blood in stool. 23:40 Onset: The symptoms/episode began/occurred last month, intermittent. cp 23:40 Possible causes: unknown. Associated signs and symptoms: Pertinent positives: abdominal cp pain, Pertinent negatives: anorexia, constipation, fever, vomiting. Severity of symptoms: in the emergency department the symptoms are unchanged despite home interventions. Patient reports he was seen in ED last month for similar complaints and had CT abdomen that was negative. Patient reports he has not f/u with GI doctor due to work schedule and missed work today. Patient requests note for work. Historical: - Allergies: 23:04 No Known Allergies; ed1 - Home Meds: 23:04 Unknown depression medication [Active]; ed1 - PMHx: 23:04 Depression; Hypothyroidism; ed1 - PSHx: 23:04 None; ed1 - Immunization history:: Adult Immunizations up to date. - Social history:: Smoking status: Patient uses tobacco products, smokes one-half pack cigarettes per day. - Ebola Screening: : Patient negative for fever greater than or equal to 101.5 degrees Fahrenheit, and additional compatible Ebola Virus Disease symptoms Patient denies exposure to infectious person Patient denies travel to an Ebola-affected area in the 21 days before illness onset No symptoms or risks identified at this time. ROS: 23:40 Constitutional: Negative for body aches, chills, fever, poor PO intake, weight loss. cp 23:40 Eyes: Negative for injury, pain, redness, and discharge. cp 23:40 Cardiovascular: Negative for chest pain, edema, palpitations. 23:40 Respiratory: Negative for cough, shortness of breath, wheezing. 23:40 Abdomen/GI: Positive for abdominal pain, blood in stool, Negative for vomiting, diarrhea, constipation, black/tarry stool. 23:40 : Negative for urinary symptoms. 23:40 Skin: Negative for rash. 23:40 Neuro: Negative for altered mental status, dizziness, headache, weakness. 23:40 All other systems are negative. Exam: 23:55 Constitutional: The patient appears in no acute distress, alert, awake, non-toxic, well cp developed, well nourished. 23:55 Head/Face: Normocephalic, atraumatic. cp 23:55 Eyes: Periorbital structures: appear normal, Conjunctiva: normal, no exudate, no cp injection, Sclera: no appreciated abnormality, Lids and lashes: appear normal, bilaterally. 23:55 ENT: External ear(s): are unremarkable, Nose: is normal, Mouth: Lips: moist, Posterior pharynx: is normal, airway is patent, no erythema, no exudate. 23:55 Chest/axilla: Inspection: normal, Palpation: is normal, no crepitus, no tenderness. 23:55 Cardiovascular: Rate: tachycardic, Rhythm: regular. cp 23:55 Respiratory: the patient does not display signs of respiratory distress, Respirations: normal, no use of accessory muscles, no retractions, no splinting, no tachypnea, labored breathing, is not present, Breath sounds: are clear throughout, no decreased breath sounds, no stridor, no wheezing. 23:55 Abdomen/GI: Inspection: abdomen appears normal, Bowel sounds: active, all quadrants, Palpation: soft, in all quadrants, mild abdominal tenderness, in the left upper quadrant and left lower quadrant, rebound tenderness, is not appreciated, voluntary guarding, is not appreciated, involuntary guarding, is not appreciated, Rectal exam: Stool: brown, guaiac negative. 23:55 Back: pain, is absent, ROM is normal. Vital Signs: 23:04 BP 133 / 90; Pulse 106; Resp 18; Temp 98.5(O); Pulse Ox 100% on R/A; Weight 74.84 kg; ed1 Height 5 ft. 8 in. (172.72 cm); Pain 0/10; 10/30 00:15 BP 127 / 81; Pulse 79; Resp 18 S; Pulse Ox 99% on R/A; cc3 10/29 23:04 Body Mass Index 25.09 (74.84 kg, 172.72 cm) ed1 MDM: 10/29 23:17 Patient medically screened. cp 10/30 00:00 Differential diagnosis: gastritis, diverticulitis, colitis, anemia. cp 00:37 Data reviewed: vital signs, nurses notes, lab test result(s). cp 00:38 Counseling: I had a detailed discussion with the patient and/or guardian regarding: the cp historical points, exam findings, and any diagnostic results supporting the discharge/admit diagnosis, lab results, the need for outpatient follow up, for definitive care, a facilities engineer, to return to the emergency department if symptoms worsen or persist or if there are any questions or concerns that arise at home. 00:38 ED course: VSS. Labs reviewed and no significant change from previous. Work note given cp and will discharge to home for continued monitoring. 10/29 23:36 Order name: Basic Metabolic Panel; Complete Time: 00:34 cp 10/29 23:36 Order name: CBC with Diff; Complete Time: 00:34 cp 10/29 23:36 Order name: Creatinine for Radiology; Complete Time: 00:34 cp 10/29 23:36 Order name: Hepatic Function; Complete Time: 00:34 cp 10/30 00:34 Interpretation: Normal except: AST 77; ALT 138; ALK 150. cp 10/29 23:36 Order name: Lipase; Complete Time: 00:34 cp 10/29 23:36 Order name: IV Saline Lock; Complete Time: 00:05 cp 10/29 23:36 Order name: Labs collected and sent; Complete Time: 00:05 cp Administered Medications: 00:00 Drug: Pepcid 20 mg Route: IVP; Site: right antecubital; cc3 00:19 Follow up: Response: No adverse reaction cc3 00:04 Drug: Zofran 4 mg Route: IVP; Site: right antecubital; cc3 00:19 Follow up: Response: No adverse reaction; Nausea is decreased cc3 Disposition: 01:46 Co-signature as Attending Physician, Toribio Maurice MD. rn Disposition: 10/30/18 00:38 Discharged to Home. Impression: Other abdominal pain - left side. - Condition is Stable. - Discharge Instructions: Abdominal Pain, Adult, Form - Excuse from Work, School, or Physical Activity. - Medication Reconciliation Form, Thank You Letter, Antibiotic Education, Prescription Opioid Use, Work release form form. - Follow up: Froy Coronel MD; When: 1 - 2 days; Reason: Recheck today's complaints. - Problem is an ongoing problem. - Symptoms have improved. Signatures: Dispatcher [employer] EDMS Toribio Maurice MD MD rn Riggs, Erika, RN RN ed1 Sandro Babb PA PA cp Kinga Horne cc3 Corrections: (The following items were deleted from the chart) 01:00 00:38 10/30/2018 00:38 Discharged to Home. Impression: Other abdominal pain - left cc3 side. Condition is Stable. Forms are Medication Reconciliation Form, Thank You Letter, Antibiotic Education, Prescription Opioid Use. Follow up: Froy Coronel; When: 1 - 2 days; Reason: Recheck today's complaints. Problem is an ongoing problem. Symptoms have improved. cp
== END 2018-10-30 01:00 | disposition home or self-care (01) ==
LOC: ER 22:55
DX: R10.12 Left upper quadrant pain (principal); R10.32 Left lower quadrant pain; F32.9 Major depressive disorder, single episode, unspecified; E03.9 Hypothyroidism, unspecified; F17.210 Nicotine dependence, cigarettes, uncomplicated
CPT/HCPCS: 36415; 80048; 80076; 83690; 85025; 96374; 96375; 99284; J2405

== ENCOUNTER 2018-12-23 20:41 | Emergency (ER) | payer BC ==
--- NOTE | 2018-12-23 22:06 | ER ---
Nurse's Notes [facility] Name: Chang Cr Age: 23 yrs Sex: Male : 1995 Arrival Date: 12/23/2018 Time: 20:43 Bed 25 Private MD: Diagnosis: Vomiting;Diarrhea, unspecified Presentation: 12/23 21:00 Acuity: PAO 3 fc 21:00 Presenting complaint: Patient states: that yesterday he started to run fever and having fc nausea/vomiting and diarrhea. Today started to have sore throat. Has had on and off stomach pain with blood in stool for some time, and was told to follow up with GI doctor which he has not done due to money and insurance issues. Also really just wants a note back to work, states he would not have come here if he was able to get into 's office. Transition of care: patient was not received from another setting of care. Onset of symptoms was December 22, 2018. Risk Assessment: Do you want to hurt yourself or someone else? Patient reports no desire to harm self or others. Initial Sepsis Screen: Does the patient meet any 2 criteria? HR > 90 bpm. Yes Does the patient have a suspected source of infection? No. Patient's initial sepsis screen is negative. Care prior to arrival: Medication(s) given: Tylenol, 650 mg, at 1700. 21:00 Method Of Arrival: Ambulatory fc Historical: - Allergies: 21:17 No Known Allergies; fc - Home Meds: 21:17 citalopram 20 mg tab 2 tabs once daily [Active]; levothyroxine 100 mcg tab 1 tab once fc daily [Active]; - PMHx: 21:17 Depression; Hypothyroidism; Lower GI Bleed; fc - PSHx: 21:17 None; fc - Immunization history:: Last tetanus immunization: up to date. - Social history:: Smoking status: Patient uses tobacco products, smokes one pack cigarettes per day. Patient/guardian denies using alcohol, street drugs. - Ebola Screening: : Patient negative for fever greater than or equal to 101.5 degrees Fahrenheit, and additional compatible Ebola Virus Disease symptoms Patient denies exposure to infectious person Patient denies travel to an Ebola-affected area in the 21 days before illness onset. Screenin:00 Abuse screen: Denies threats or abuse. Nutritional screening: No deficits noted. fc Tuberculosis screening: No symptoms or risk factors identified. Fall Risk None identified. Assessment: 21:18 General: Appears in no apparent distress. comfortable, Behavior is calm, cooperative. mg2 Pain: Complains of pain in throat Pain does not radiate. Pain currently is 3 out of 10 on a pain scale. Quality of pain is described as aching, Pain began gradually. Neuro: Level of Consciousness is awake, alert, obeys commands, Oriented to person, place, time, situation. Cardiovascular: Capillary refill < 3 seconds Patient's skin is warm and dry. Respiratory: Airway is patent Respiratory effort is even, unlabored, Respiratory pattern is regular, symmetrical. GI: Abdomen is non-distended, Reports nausea. : No signs and/or symptoms were reported regarding the genitourinary system. EENT: Throat is reddened has enlarged tonsils bilaterally Reports pain when swallowing. Derm: Skin is intact, is healthy with good turgor, Skin is pink, warm \T\ dry. normal. Musculoskeletal: Circulation, motion, and sensation intact. Capillary refill < 3 seconds. 21:20 Reassessment: patient refused blood work. provider informed. mg2 Vital Signs: 21:00 BP 145 / 91; Pulse 116; Resp 18; Temp 98.7(O); Pulse Ox 97% on R/A; Weight 79.38 kg fc (R); Height 5 ft. 8 in. (172.72 cm) (R); Pain 0/10; 21:45 BP 132 / 72; Pulse 110; Resp 18; Temp 98.5(O); Pulse Ox 100% on R/A; mg2 22:13 BP 139 / 83; Pulse 99; Resp 18; Temp 98.4(O); Pulse Ox 99% on R/A; Pain 0/10; fc 21:00 Body Mass Index 26.61 (79.38 kg, 172.72 cm) ED Course: 20:43 Patient arrived in ED. es 20:58 Antonio Neville PA is PHCP. jmm 20:58 Bry Jose MD is Attending Physician. [facility] 21:00 No provider procedures requiring assistance completed. 21:00 Arm band placed on Patient placed in an exam room, on a stretcher. 21:00 Patient has correct armband on for positive identification. Bed in low position. Call light in reach. Pulse ox on. NIBP on. 21:05 Mateo Peña, RN is Primary Nurse. mg2 21:14 Triage completed. 21:16 Strep swab sent to lab. mg2 22:15 Patient did not have IV access during this emergency room visit. Administered Medications: No medications were administered Outcome: 22:05 Discharge ordered by MD. andrea 22:14 Discharged to home ambulatory, with family. 22:14 Condition: good 22:14 Discharge instructions given to patient, family, Instructed on discharge instructions, follow up and referral plans. OTC tylenol and ibuprofen Demonstrated understanding of instructions, follow-up care, OTC tylenol and ibuprofen Prescriptions given X none 22:16 Patient left the ED. Signatures: Antonio Neville PA PA jmm Salyer, Edna es Chretien, Felicia, RN RN Mateo Peña, RN RN mg2 Corrections: (The following items were deleted from the chart) 21:50 21:45 BP 132 / 72; Pulse 110bpm; Resp 18bpm; Pulse Ox 100% RA; mg2 mg2
--- NOTE | 2018-12-23 22:06 | EDPHYS ---
Physician Documentation [facility] Name: Chang Cr Age: 23 yrs Sex: Male : 1995 Arrival Date: 12/23/2018 Time: 20:43 Bed 25 Private MD: ED Physician Bry Jose HPI: 12/23 21:58 This 23 yrs old Male presents to ER via Ambulatory with complaints of Fever, jmm Nausea. 21:58 The patient presents to the emergency department with nausea, vomiting, diarrhea. jmm Onset: The symptoms/episode began/occurred 1 day(s) ago. Possible causes: unknown. The symptoms are aggravated by nothing. The symptoms are alleviated by nothing. This is a 23 year old male with a history of depression, hypothyroidism that presents to the ED with complains of vomiting, diarrhea. fever beginning last night. Patient states he needs a work excuse. . Historical: - Allergies: 21:17 No Known Allergies; fc - Home Meds: 21:17 citalopram 20 mg tab 2 tabs once daily [Active]; levothyroxine 100 mcg tab 1 tab once fc daily [Active]; - PMHx: 21:17 Depression; Hypothyroidism; Lower GI Bleed; fc - PSHx: 21:17 None; fc - Immunization history:: Last tetanus immunization: up to date. - Social history:: Smoking status: Patient uses tobacco products, smokes one pack cigarettes per day. Patient/guardian denies using alcohol, street drugs. - Ebola Screening: : Patient negative for fever greater than or equal to 101.5 degrees Fahrenheit, and additional compatible Ebola Virus Disease symptoms Patient denies exposure to infectious person Patient denies travel to an Ebola-affected area in the 21 days before illness onset. ROS: 21:58 Cardiovascular: Negative for chest pain, palpitations, and edema, Respiratory: Negative jmm for shortness of breath, cough, wheezing, and pleuritic chest pain. 21:58 Back: Negative for injury and pain, : Negative for injury, bleeding, discharge, and swelling. 21:58 Constitutional: Positive for fever. 21:58 Abdomen/GI: Positive for vomiting, diarrhea. 21:58 All other systems are negative. Exam: 21:58 Constitutional: This is a well developed, well nourished patient who is awake, alert, jmm and in no acute distress. Head/Face: atraumatic. Eyes: EOMI, no conjunctival erythema appreciated ENT: Moist Mucus Membranes Neck: Trachea midline, Supple Chest/axilla: Normal chest wall appearance and motion. 21:58 Cardiovascular: Rate: normal, Rhythm: regular. 21:58 Respiratory: the patient does not display signs of respiratory distress, Respirations: normal, Breath sounds: are clear throughout. 21:58 Abdomen/GI: Inspection: abdomen appears normal, Bowel sounds: normal, Palpation: abdomen is soft and non-tender, in all quadrants. 21:58 Back: ROM is normal. 21:58 Musculoskeletal/extremity: ROM: intact in all extremities. 21:58 Skin: Appearance: Color: normal in color. 21:58 Neuro: Orientation: is normal, Mentation: is normal, Memory: is normal. 21:58 Psych: Behavior/mood is pleasant, cooperative. Vital Signs: 21:00 BP 145 / 91; Pulse 116; Resp 18; Temp 98.7(O); Pulse Ox 97% on R/A; Weight 79.38 kg fc (R); Height 5 ft. 8 in. (172.72 cm) (R); Pain 0/10; 21:45 BP 132 / 72; Pulse 110; Resp 18; Temp 98.5(O); Pulse Ox 100% on R/A; mg2 22:13 BP 139 / 83; Pulse 99; Resp 18; Temp 98.4(O); Pulse Ox 99% on R/A; Pain 0/10; fc 21:00 Body Mass Index 26.61 (79.38 kg, 172.72 cm) MDM: 21:04 [facility]. [facility] 22:02 Data reviewed: vital signs, nurses notes. Counseling: I had a detailed discussion with [facility] the patient and/or guardian regarding: the historical points, exam findings, and any diagnostic results supporting the discharge/admit diagnosis, lab results. Refusal of service: The patient/guardian displays adequate decision making capability and despite a detailed discussion of alternatives, benefits, risks, and consequences refuses:. 12/23 21:04 Order name: Basic Metabolic Panel [facility] 12/23 21:04 Order name: CBC with Diff [facility] 12/23 21:04 Order name: Creatinine for Radiology [facility] 12/23 21:04 Order name: Hepatic Function [facility] 12/23 21:04 Order name: Strep; Complete Time: 21:47 [facility] 12/23 21:48 Order name: Throat Culture [facility] 12/23 21:48 Order name: PO challenge; Complete Time: 21:54 [facility] Administered Medications: No medications were administered Disposition: 22:02 Chart complete. Chart complete. [facility] 12/24 03:32 Co-signature as Attending Physician, Bry Jose MD. Disposition: 12/23/18 22:05 Discharged to Home. Impression: Vomiting, Diarrhea, unspecified. - Condition is Stable. - Discharge Instructions: Diarrhea, Adult, Nausea and Vomiting, Adult. - Medication Reconciliation Form, Thank You Letter, Antibiotic Education, Prescription Opioid Use, Work release form form. - Follow up: Private Physician; When: 2 - 3 days; Reason: Recheck today's complaints, Continuance of care, Re-evaluation by your physician. Signatures: Dispatcher [employer] [facility] Antonio Neville PA PA [facility] Natalia Spence RN RN Bry Vo MD MD Corrections: (The following items were deleted from the chart) 12/23 22:16 21:06 IV Saline Lock ordered. [facility] 22:16 21:06 Labs collected and sent ordered. [facility] 22:16 22:05 12/23/2018 22:05 Discharged to Home. Impression: Vomiting; Diarrhea, unspecified. fc Condition is Stable. Forms are Medication Reconciliation Form, Thank You Letter, Antibiotic Education, Prescription Opioid Use. Follow up: Private Physician; When: 2 - 3 days; Reason: Recheck today's complaints, Continuance of care, Re-evaluation by your physician. [facility]
== END 2018-12-23 22:16 | disposition home or self-care (01) ==
LOC: ER 20:41
DX: R11.2 Nausea with vomiting, unspecified (principal); R19.7 Diarrhea, unspecified; F32.9 Major depressive disorder, single episode, unspecified; E03.9 Hypothyroidism, unspecified; F17.210 Nicotine dependence, cigarettes, uncomplicated
CPT/HCPCS: 87070; 87081; 99283

== ENCOUNTER 2019-02-04 19:20 | Emergency (ER) | payer BC ==
--- NOTE | 2019-02-04 20:36 | RAD REPORT ---
EXAM DESCRIPTION: CT - Head Brain Wo Cont - 02/04/2019 8:29 pm CLINICAL HISTORY: HEADACHE Headache, drowsiness COMPARISON: No comparisons TECHNIQUE: All CT scans are performed using dose optimization technique as appropriate and may inclu de automated exposure control or mA/KV adjustment according to patient size. FINDINGS: No intracranial hemorrhage, hydrocephalus or extra-axial fluid collection.No areas of brai n edema or evidence of midline shift. The paranasal sinuses and mastoids are clear. The calvarium is intact. IMPRESSION: No acute intracranial abnormality.
--- NOTE | 2019-02-04 21:13 | ER ---
Nurse's Notes [facility] Name: Chang Cr Age: 23 yrs Sex: Male : 1995 Arrival Date: 02/04/2019 Time: 19:24 Bed 19 Private MD: Diagnosis: Headache Presentation: 02/04 19:36 Presenting complaint: Patient states: "For the past 2 days I get a headache during the aj1 day and it feels like pressure in my head. It travels to my ears like an ear ache" Denies fever. Denies recent head injury. Transition of care: patient was not received from another setting of care. Onset of symptoms was February 02, 2019. Risk Assessment: Do you want to hurt yourself or someone else? Patient reports no desire to harm self or others. Initial Sepsis Screen: Does the patient meet any 2 criteria? No. Patient's initial sepsis screen is negative. Does the patient have a suspected source of infection? No. Patient's initial sepsis screen is negative. Care prior to arrival: None. 19:36 Method Of Arrival: Ambulatory aj 19:36 Acuity: PAO 4 aj1 Triage Assessment: 19:38 Headache History: Denies prior headaches. General: Appears in no apparent distress. aj1 comfortable, Behavior is calm, cooperative, appropriate for age. Pain: Complains of pain in forehead, right cheek, right ear, nose, left ear and left cheek Pain does not radiate. Pain currently is 6 out of 10 on a pain scale. Pain began 2-3 days ago. Also complains of no other associated symptoms. Neuro: Level of Consciousness is awake, alert, obeys commands, Oriented to person, place, time, situation, Moves all extremities. Full function Gait is steady, Speech is normal, Facial symmetry appears normal, Reports headache. Cardiovascular: Patient's skin is warm and dry. Respiratory: Airway is patent Respiratory effort is even, unlabored, Respiratory pattern is regular, symmetrical. Historical: - Allergies: 19:38 No Known Allergies; aj1 - Home Meds: 19:38 citalopram 20 mg tab 2 tabs once daily [Active]; levothyroxine 100 mcg tab 1 tab once aj1 daily [Active]; - PMHx: 19:38 Depression; Hypothyroidism; Lower GI Bleed; aj1 - Immunization history:: Flu vaccine is up to date. - Social history:: Smoking status: Patient uses tobacco products, smokes one pack cigarettes per day. - Ebola Screening: : Patient denies travel to an Ebola-affected area in the 21 days before illness onset. Screenin:32 Abuse screen: Denies threats or abuse. Denies injuries from another. Nutritional cc3 screening: No deficits noted. Tuberculosis screening: No symptoms or risk factors identified. Fall Risk Ambulatory Aid- None/Bed Rest/Nurse Assist (0 pts). Gait- Normal/Bed Rest/Wheelchair (0 pts) Mental Status- Oriented to own ability (0 pts). Assessment: 20:32 Reassessment: Patient appears in no apparent distress at this time. Patient and/or cc3 family updated on plan of care and expected duration. Pain level reassessed. Patient is alert, oriented x 3, equal unlabored respirations, skin warm/dry/pink. Patient came back from CT scan department, awaiting result. 21:45 Reassessment: Patient appears in no apparent distress at this time. Patient and/or cc3 family updated on plan of care and expected duration. Pain level reassessed. Patient is alert, oriented x 3, equal unlabored respirations, skin warm/dry/pink. CLAUDIA Gerber discharged the patient home, no prescription given. No IV cannula in situ. Patient left ER vitally stable and ambulatory with his mother. Patient denies pain at this time. Patient states feeling better. Patient states symptoms have improved. Vital Signs: 19:38 BP 126 / 80; Pulse 108; Resp 20; Temp 98.6; Pulse Ox 99% on R/A; Weight 81.65 kg (R); aj1 Height 5 ft. 8 in. (172.72 cm) (R); Pain 6/10; 20:40 BP 118 / 77; Pulse 101; Resp 19 S; Pulse Ox 100% on R/A; cc3 21:35 BP 124 / 82; Pulse 99; Resp 17 S; Pulse Ox 100% on R/A; cc3 19:38 Body Mass Index 27.37 (81.65 kg, 172.72 cm) aj1 Albaro Coma Score: 21:15 Eye Response: spontaneous(4). Verbal Response: oriented(5). Motor Response: obeys kb commands(6). Total: 15. ED Course: 19:24 Patient arrived in ED. ag3 19:37 Triage completed. aj1 19:38 Arm band placed on Patient placed in waiting room, Patient notified of wait time. aj1 20:15 [facility] kb 20:15 Sandro Rogers MD is Attending Physician. kb 20:29 CT Head Brain wo Cont In Process Unspecified. EDMS 20:32 Kinga Horne is Primary Nurse. cc3 20:32 Patient has correct armband on for positive identification. Bed in low position. Call cc3 light in reach. Side rails up X 1. Pulse ox on. NIBP on. 21:43 No provider procedures requiring assistance completed. Patient did not have IV access cc3 during this emergency room visit. Administered Medications: 21:30 Drug: TORadol 30 mg Route: IM; Site: left gluteus; cc3 21:45 Follow up: Response: No adverse reaction; Pain is decreased cc3 Outcome: 21:11 Discharge ordered by MD. kb 21:43 Patient left the ED. cc3 21:43 Discharged to home ambulatory, with family. cc3 21:43 Condition: stable 21:43 Discharge instructions given to patient, Instructed on discharge instructions, follow up and referral plans. Demonstrated understanding of instructions, follow-up care. Signatures: Dispatcher [employer] EDID Sosa Gerber FNP-C CONTACT LENS BLOCKER-Kerline Bloom, RN RN aj1 Kinga Horne cc3 Renuka Lacey ag3 Corrections: (The following items were deleted from the chart) 19:39 19:38 Arm band placed on Patient placed in an exam room, aj1 aj1 02/05 03:29 07 20:32 Reassessment: Patient came back from CT scan department, awaiting result. cc3 cc3
--- NOTE | 2019-02-04 21:13 | EDPHYS ---
Physician Documentation [facility] Name: Chang Cr Age: 23 yrs Sex: Male : 1995 Arrival Date: 02/04/2019 Time: 19:24 Bed 19 Private MD: ED Physician Sandro Rogers HPI: 02/04 21:16 This 23 yrs old Male presents to ER via Ambulatory with complaints of Headache.kb 21:16 The patient complains of pain to the forehead. The patient describes the headache as kb intermittent, a pressure. Onset: The symptoms/episode began/occurred 3 day(s) ago. Associated signs and symptoms: Pertinent positives: nausea, Pertinent negatives: dizziness, fever, malaise, Photophobia sinus congestion. Severity of symptoms: At its worst the pain was moderate, in the emergency department the pain has improved, markedly. Headache History: Denies prior headaches. The symptoms are alleviated by nothing. the symptoms are aggravated by nothing. The patient has not experienced similar symptoms in the past. The patient has not recently seen a physician. Historical: - Allergies: 19:38 No Known Allergies; aj1 - Home Meds: 19:38 citalopram 20 mg tab 2 tabs once daily [Active]; levothyroxine 100 mcg tab 1 tab once aj1 daily [Active]; - PMHx: 19:38 Depression; Hypothyroidism; Lower GI Bleed; aj1 - Immunization history:: Flu vaccine is up to date. - Social history:: Smoking status: Patient uses tobacco products, smokes one pack cigarettes per day. - Ebola Screening: : Patient denies travel to an Ebola-affected area in the 21 days before illness onset. ROS: 21:16 Constitutional: Negative for fever, chills, and weight loss, Eyes: Negative for injury, kb pain, redness, and discharge, ENT: Negative for injury, pain, and discharge, Neck: Negative for injury, pain, and swelling, Cardiovascular: Negative for chest pain, palpitations, and edema, Respiratory: Negative for shortness of breath, cough, wheezing, and pleuritic chest pain, Abdomen/GI: Negative for abdominal pain, nausea, vomiting, diarrhea, and constipation, Back: Negative for injury and pain, : Negative for injury, bleeding, discharge, and swelling, MS/Extremity: Negative for injury and deformity, Skin: Negative for injury, rash, and discoloration. 21:16 Neuro: Positive for headache. Exam: 21:16 Constitutional: This is a well developed, well nourished patient who is awake, alert, kb and in no acute distress. Head/Face: Normocephalic, atraumatic. Eyes: Pupils equal round and reactive to light, extra-ocular motions intact. Lids and lashes normal. Conjunctiva and sclera are non-icteric and not injected. Cornea within normal limits. Periorbital areas with no swelling, redness, or edema. ENT: Nares patent. No nasal discharge, no septal abnormalities noted. Tympanic membranes are normal and external auditory canals are clear. Oropharynx with no redness, swelling, or masses, exudates, or evidence of obstruction, uvula midline. Mucous membranes moist. Neck: Trachea midline, no thyromegaly or masses palpated, and no cervical lymphadenopathy. Supple, full range of motion without nuchal rigidity, or vertebral point tenderness. No Meningismus. Chest/axilla: Normal chest wall appearance and motion. Nontender with no deformity. No lesions are appreciated. Cardiovascular: Regular rate and rhythm with a normal S1 and S2. No gallops, murmurs, or rubs. Normal PMI, no JVD. No pulse deficits. Respiratory: Lungs have equal breath sounds bilaterally, clear to auscultation and percussion. No rales, rhonchi or wheezes noted. No increased work of breathing, no retractions or nasal flaring. Abdomen/GI: Soft, non-tender, with normal bowel sounds. No distension or tympany. No guarding or rebound. No evidence of tenderness throughout. Skin: Warm, dry with normal turgor. Normal color with no rashes, no lesions, and no evidence of cellulitis. MS/ Extremity: Pulses equal, no cyanosis. Neurovascular intact. Full, normal range of motion. Neuro: Awake and alert, GCS 15, oriented to person, place, time, and situation. Cranial nerves II-XII grossly intact. Motor strength 5/5 in all extremities. Sensory grossly intact. Cerebellar exam normal. Normal gait. Vital Signs: 19:38 BP 126 / 80; Pulse 108; Resp 20; Temp 98.6; Pulse Ox 99% on R/A; Weight 81.65 kg (R); aj1 Height 5 ft. 8 in. (172.72 cm) (R); Pain 6/10; 20:40 BP 118 / 77; Pulse 101; Resp 19 S; Pulse Ox 100% on R/A; cc3 21:35 BP 124 / 82; Pulse 99; Resp 17 S; Pulse Ox 100% on R/A; cc3 19:38 Body Mass Index 27.37 (81.65 kg, 172.72 cm) aj1 Albaro Coma Score: 21:15 Eye Response: spontaneous(4). Verbal Response: oriented(5). Motor Response: obeys kb commands(6). Total: 15. MDM: 20:15 Patient medically screened. kb 21:15 Data reviewed: vital signs, nurses notes. Data interpreted: Pulse oximetry: on room air kb is 99 %. Interpretation: normal. Counseling: I had a detailed discussion with the patient and/or guardian regarding: the historical points, exam findings, and any diagnostic results supporting the discharge/admit diagnosis, radiology results, the need for outpatient follow up, a family practitioner, a neurologist, to return to the emergency department if symptoms worsen or persist or if there are any questions or concerns that arise at home. 02/04 20:21 Order name: CT Head Brain wo Cont; Complete Time: 20:43 kb Administered Medications: 21:30 Drug: TORadol 30 mg Route: IM; Site: left gluteus; cc3 21:45 Follow up: Response: No adverse reaction; Pain is decreased cc3 Disposition: 02/05 07:19 Co-signature as Attending Physician, Sandro Rogers MD I agree with the assessment and bessie plan of care. Disposition: 02/04/19 21:11 Discharged to Home. Impression: Headache. - Condition is Stable. - Discharge Instructions: General Headache Without Cause, [id number]. - Work release form, Medication Reconciliation Form, Thank You Letter, Antibiotic Education, Prescription Opioid Use form. - Follow up: Emergency Department; When: As needed; Reason: Worsening of condition. Follow up: Private Physician; When: 2 - 3 days; Reason: Recheck today's complaints, Continuance of care, Re-evaluation by your physician. Signatures: Dispatcher [employer] EDSosa Barlow, OSCAR LAZCANO-Kerline Bloom RN RN aj1 Sandro Rogers MD MD cha Cordel, Charlene cc3 Corrections: (The following items were deleted from the chart) 02/04 21:43 21:11 02/04/2019 21:11 Discharged to Home. Impression: Headache. Condition is Stable. cc3 Forms are Medication Reconciliation Form, Thank You Letter, Antibiotic Education, Prescription Opioid Use. Follow up: Emergency Department; When: As needed; Reason: Worsening of condition. Follow up: Private Physician; When: 2 - 3 days; Reason: Recheck today's complaints, Continuance of care, Re-evaluation by your physician. kb
[2019-02-04] MEDS ORDERED: KETOROLAC 30 MG/ML INJ ONE (21:49)
== END 2019-02-04 21:43 | disposition home or self-care (01) ==
LOC: ER 19:20
DX: R51 Headache (principal); F32.9 Major depressive disorder, single episode, unspecified; E03.9 Hypothyroidism, unspecified; F17.210 Nicotine dependence, cigarettes, uncomplicated
CPT/HCPCS: 70450

== ENCOUNTER 2019-06-27 09:07 | Emergency (ER) | payer BC, SELFPAY ==
--- NOTE | 2019-06-27 11:10 | ER ---
Nurse's Notes [facility] Name: Chang Cr Age: 24 yrs Sex: Male : 1995 Arrival Date: 06/27/2019 Time: 09:09 Bed 20 Private MD: Diagnosis: Streptococcal pharyngitis Presentation: 06/27 09:21 Presenting complaint: N/V, cough, chest tightness, and SOB since last night. Transition hb of care: patient was not received from another setting of care. Onset of symptoms was June 26, 2019. Risk Assessment: Do you want to hurt yourself or someone else? Patient reports no desire to harm self or others. Initial Sepsis Screen: Does the patient meet any 2 criteria? No. Patient's initial sepsis screen is negative. Does the patient have a suspected source of infection? No. Patient's initial sepsis screen is negative. Care prior to arrival: None. 09:21 Method Of Arrival: Ambulatory hb 09:21 Acuity: PAO 3 hb Historical: - Allergies: :23 No Known Allergies; hb - Home Meds: :23 citalopram 20 mg tab 2 tabs once daily [Active]; levothyroxine 100 mcg tab 1 tab once hb daily [Active]; - PMHx: 09:23 Depression; Hypothyroidism; Lower GI Bleed; hb - PSHx: 09:23 None; hb - Immunization history:: Adult Immunizations up to date. - Social history:: Smoking status: Patient uses tobacco products, smokes one-half pack cigarettes per day. - Ebola Screening: : No symptoms or risks identified at this time. Screenin:20 Abuse screen: Denies threats or abuse. Denies injuries from another. Nutritional sg screening: No deficits noted. Tuberculosis screening: No symptoms or risk factors identified. Never had TB. Fall Risk None identified. Assessment: 09:50 General: Appears in no apparent distress. well groomed, well developed, well nourished, sg Behavior is calm, cooperative, appropriate for age. Pain: Complains of pain in sore throat. Cardiovascular: Capillary refill is brisk in bilateral fingers Patient's skin is warm and dry. Chest pain is denied. Respiratory: Airway is patent Respiratory effort is even, unlabored, Breath sounds are clear. 09:51 Reassessment: Patient appears in no apparent distress at this time. Patient and/or sg family updated on plan of care and expected duration. Pain level reassessed. Patient is alert, oriented x 3, equal unlabored respirations, skin warm/dry/pink. Vital Signs: 09:23 BP 154 / 97; Pulse 113; Resp 16; Temp 98.4; Pulse Ox 100% on R/A; Weight 79.38 kg; hb Height 5 ft. 8 in. (172.72 cm); Pain 6/10; 11:25 BP 140 / 87; Pulse 103; Resp 17; Temp 97.7; Pulse Ox 100% on R/A; sg 09:23 Body Mass Index 26.61 (79.38 kg, 172.72 cm) hb ED Course: 09:09 Patient arrived in ED. rg4 09:22 Triage completed. hb 09:23 Arm band placed on. hb 09:24 Frances Max FNP-C is PHCP. snw 09:24 Suhail Das MD is Attending Physician. snw 09:25 Compa Villagomez RN is Primary Nurse. sg 09:51 Flu and/or RSV swab sent to lab. sg 09:55 Patient has correct armband on for positive identification. Bed in low position. Call sg light in reach. Pulse ox on. NIBP on. Warm blanket given. Head of bed elevated. 11:40 No provider procedures requiring assistance completed. Patient did not have IV access sg during this emergency room visit. Administered Medications: 11:38 Drug: Bicillin L-A 2.4 million units {Note: pt educated on proper placement of IM, pt sg request two sep injection in arms.} Route: IM; Site: Other; 12:15 Follow up: Response: No adverse reaction sg 11:38 Drug: Decadron - Dexamethasone 10 mg Route: IVP; Site: Other; sg 12:15 Follow up: Response: No adverse reaction sg 11:38 Drug: Tylenol Liquid 1 tsp Route: PO; sg 12:15 Follow up: Response: No adverse reaction sg Outcome: 11:10 Discharge ordered by . snw 11:40 Discharged to home ambulatory, with family. sg 11:40 Condition: good 11:40 Discharge instructions given to patient, Instructed on discharge instructions, follow up and referral plans. medication usage, safety practices, Demonstrated understanding of instructions, follow-up care, medications, Prescriptions given X 1. 11:44 Patient left the ED. sg Signatures: Compa Villagomez RN RN sg Frances Max, VECTOR CONTROL ASSISTANT-C VECTOR CONTROL ASSISTANT-Csnw Cortney Morley RN RN Larissa Hair rg4
--- NOTE | 2019-06-27 11:11 | EDPHYS ---
Physician Documentation [facility] Name: Chang Cr Age: 24 yrs Sex: Male : 1995 Arrival Date: 06/27/2019 Time: 09:09 Bed 20 Private MD: ED Physician Suhail Das HPI: 06/27 10:03 This 24 yrs old Male presents to ER via Ambulatory with complaints of snw Breathing Difficulty, Nausea, Chest Tightness. 10:03 The patient has shortness of breath at rest. Onset: The symptoms/episode began/occurred snw suddenly, 3 day(s) ago, and became persistent. Duration: The symptoms are continuous, and are unchanged since they started. The patient's shortness of breath has no apparent modifying factors. Severity of symptoms: At their worst the symptoms were moderate. It is unknown whether or not the patient has had similar symptoms in the past. It is unknown whether or not the patient has recently seen a physician. Historical: - Allergies: 09:23 No Known Allergies; hb - Home Meds: :23 citalopram 20 mg tab 2 tabs once daily [Active]; levothyroxine 100 mcg tab 1 tab once hb daily [Active]; - PMHx: 09:23 Depression; Hypothyroidism; Lower GI Bleed; hb - PSHx: : None; hb - Immunization history:: Adult Immunizations up to date. - Social history:: Smoking status: Patient uses tobacco products, smokes one-half pack cigarettes per day. - Ebola Screening: : No symptoms or risks identified at this time. ROS: 10:01 Eyes: Negative for injury, pain, redness, and discharge, ENT: Negative for injury, snw pain, and discharge, Neck: Negative for injury, pain, and swelling, Cardiovascular: Negative for chest pain, palpitations, and edema, Respiratory: Negative for shortness of breath, cough, wheezing, and pleuritic chest pain, Abdomen/GI: Negative for abdominal pain, diarrhea, and constipation, positive for nausea and chest tightness Back: Negative for injury and pain, : Negative for injury, bleeding, discharge, and swelling, MS/Extremity: Negative for injury and deformity, Neuro: Negative for headache, weakness, numbness, tingling, and seizure. 10:01 Constitutional: Positive for fever. Exam: 10:00 Constitutional: This is a well developed, well nourished patient who is awake, alert, snw and in no acute distress. Head/Face: Normocephalic, atraumatic. Eyes: Pupils equal round and reactive to light, extra-ocular motions intact. Lids and lashes normal. Conjunctiva and sclera are non-icteric and not injected. Cornea within normal limits. Periorbital areas with no swelling, redness, or edema. ENT: Nares patent. No nasal discharge, no septal abnormalities noted. Tympanic membranes are normal and external auditory canals are clear. Oropharynx with significant redness, minimal swelling, no masses, exudates, or evidence of obstruction, uvula midline. Mucous membranes moist. Neck: Trachea midline, no thyromegaly or masses palpated, and no cervical lymphadenopathy. Supple, full range of motion without nuchal rigidity, or vertebral point tenderness. No Meningismus. Chest/axilla: Normal chest wall appearance and motion. Nontender with no deformity. No lesions are appreciated. 10:00 Respiratory: Lungs have equal breath sounds bilaterally, clear to auscultation and percussion. No rales, rhonchi or wheezes noted. No increased work of breathing, no retractions or nasal flaring. Abdomen/GI: Soft, non-tender, with normal bowel sounds. No distension or tympany. No guarding or rebound. No evidence of tenderness throughout. Back: No spinal tenderness. No costovertebral tenderness. Full range of motion. Skin: Warm, dry with normal turgor. Normal color with no rashes, no lesions, and no evidence of cellulitis. MS/ Extremity: Pulses equal, no cyanosis. Neurovascular intact. Full, normal range of motion. Neuro: Awake and alert, GCS 15, oriented to person, place, time, and situation. Cranial nerves II-XII grossly intact. Motor strength 5/5 in all extremities. Sensory grossly intact. Cerebellar exam normal. Normal gait. 10:00 Cardiovascular: Rate: tachycardic, Rhythm: regular. Vital Signs: 09:23 BP 154 / 97; Pulse 113; Resp 16; Temp 98.4; Pulse Ox 100% on R/A; Weight 79.38 kg; hb Height 5 ft. 8 in. (172.72 cm); Pain 6/10; 11:25 BP 140 / 87; Pulse 103; Resp 17; Temp 97.7; Pulse Ox 100% on R/A; sg 09:23 Body Mass Index 26.61 (79.38 kg, 172.72 cm) hb MDM: 09:50 Patient medically screened. snw 11:13 Data reviewed: vital signs, nurses notes, lab test result(s). Special discussion: Based snw on the history and exam findings, there is no indication for further emergent testing or inpatient evaluation. I discussed with the patient/guardian the need to see the primary care provider for further evaluation of the symptoms. 06/27 09:24 Order name: Flu; Complete Time: 10:59 snw 06/27 09:54 Order name: Strep; Complete Time: 11:05 snw Administered Medications: 11:38 Drug: Bicillin L-A 2.4 million units {Note: pt educated on proper placement of IM, pt sg request two sep injection in arms.} Route: IM; Site: Other; 12:15 Follow up: Response: No adverse reaction sg 11:38 Drug: Decadron - Dexamethasone 10 mg Route: IVP; Site: Other; sg 12:15 Follow up: Response: No adverse reaction sg 11:38 Drug: Tylenol Liquid 1 tsp Route: PO; sg 12:15 Follow up: Response: No adverse reaction sg Disposition: 16:14 Co-signature as Attending Physician, Suhail Das MD. ma2 Disposition: 06/27/19 11:10 Discharged to Home. Impression: Streptococcal pharyngitis. - Condition is Stable. - Discharge Instructions: Fever, Adult, Strep Throat, Rehydration, Adult. - Prescriptions for Zofran 4 mg Oral Tablet - take 1 tablet by ORAL route every 12 hours As needed; 20 tablet. - Work release form, Medication Reconciliation Form, Thank You Letter, Antibiotic Education, Prescription Opioid Use form. - Follow up: Emergency Department; When: As needed; Reason: Worsening of condition. Follow up: Private Physician; When: 2 - 3 days; Reason: Recheck today's complaints, Continuance of care, Re-evaluation by your physician. Signatures: Dispatcher [employer] Compa Eisenberg RN RN sg Frances Max, ARMOR SENIOR SERGEANT-C ARMOR SENIOR SERGEANT-Csnw Cortney Morley RN RN Suhail Das MD MD ma2 Corrections: (The following items were deleted from the chart) 10:03 10:01 Eyes: Negative for injury, pain, redness, and discharge, ENT: Negative for snw injury, pain, and discharge, Neck: Negative for injury, pain, and swelling, Cardiovascular: Negative for chest pain, palpitations, and edema, Respiratory: Negative for shortness of breath, cough, wheezing, and pleuritic chest pain, Abdomen/GI: Negative for abdominal pain, nausea, vomiting, diarrhea, and constipation, Back: Negative for injury and pain, : Negative for injury, bleeding, discharge, and swelling, MS/Extremity: Negative for injury and deformity, Neuro: Negative for headache, weakness, numbness, tingling, and seizure, snw 10:03 10:01 Skin: Positive for rash, worsening eczema, snw snw 11:44 11:10 06/27/2019 11:10 Discharged to Home. Impression: Streptococcal pharyngitis. sg Condition is Stable. Forms are Medication Reconciliation Form, Thank You Letter, Antibiotic Education, Prescription Opioid Use. Follow up: Emergency Department; When: As needed; Reason: Worsening of condition. Follow up: Private Physician; When: 2 - 3 days; Reason: Recheck today's complaints, Continuance of care, Re-evaluation by your physician. snw
[2019-06-27] MEDS ORDERED: dexAMETHasone 10 MG/ML VIAL ONE ×2 (11:30→11:33)
[2019-06-27] MEDS ORDERED: ACETAMINOPHEN 160 MG/5 ML UCUP ONE ×2 (11:30→11:33)
[2019-06-27] MEDS ORDERED: PEN G BENZ LA 2.4 MU/4 ML SYRINGE IM ONE (11:31)
[2019-06-27 17:30] VITALS: O2SAT 100
[2019-06-27 17:31] VITALS: TEMP 98.4
[2019-06-27 17:32] VITALS: BP 99/72
== END 2019-06-27 11:44 | disposition home or self-care (01) ==
LOC: ER 09:07
DX: J02.0 Streptococcal pharyngitis (principal); E03.9 Hypothyroidism, unspecified; F41.9 Anxiety disorder, unspecified; F17.210 Nicotine dependence, cigarettes, uncomplicated
CPT/HCPCS: 87081; 87804; 96372; 96374; 99284; J0561; J1100

== ENCOUNTER 2019-08-30 22:04 | Emergency (ER) | payer SELFPAY ==
[2019-08-30] MEDS ORDERED: DOXYCYCLINE 100 MG CAP PO ONE ×2 (23:38→23:52)
[2019-08-30] MEDS ORDERED: TETANUS & DIPHTHERIA TOX,ADULT 0.5 ML VIAL ONE ×2 (23:38→23:52)
--- NOTE | 2019-08-31 01:55 | EDPHYS ---
Physician Documentation [facility] Name: Chang Cr Age: 24 yrs Sex: Male : 1995 Arrival Date: 08/30/2019 Time: 22:08 Bed 13 Private MD: ED Physician Cole Castellon HPI: 08/30 23:38 This 24 yrs old Male presents to ER via Ambulatory with complaints of ABCESS snw ON CHIN, Sore Throat. 23:38 The patient presents with an abscess of the submental area. Description: erythematous, snw swollen. Onset: The symptoms/episode began/occurred suddenly, 4 day(s) ago, and became persistent. Associated signs and symptoms: The patient has no apparent associated signs or symptoms. Modifying factors: the symptoms are alleviated by nothing. Severity of symptoms: At their worst the symptoms were moderate. The patient has experienced a previous episode. The patient has not recently seen a physician. Father with DM, FSBS on pt within normal limits. Historical: - Allergies: 22:15 No Known Allergies; jd3 - Home Meds: 22:15 citalopram 20 mg tab 2 tabs once daily [Active]; levothyroxine 100 mcg tab 1 tab once jd3 daily [Active]; - PMHx: 22:15 Depression; Hypothyroidism; Lower GI Bleed; jd3 - PSHx: 22:15 None; jd3 - Immunization history:: Adult Immunizations up to date. - Coronavirus screen:: The patient has NOT traveled to [place] in the past 14 days. The patient has NOT had contact with known/suspected case of Coronavirus? Proceed with normal triage procedures. - Social history:: Smoking status: Patient reports the use of cigarette tobacco products, smokes one-half pack cigarettes per day. - Ebola Screening: : Patient negative for fever greater than or equal to 101.5 degrees Fahrenheit, and additional compatible Ebola Virus Disease symptoms. ROS: 23:37 Constitutional: Negative for fever, chills, and weight loss, Eyes: Negative for injury, snw pain, redness, and discharge, ENT: Negative for injury, pain, and discharge, Neck: Negative for injury, pain, and swelling, Cardiovascular: Negative for chest pain, palpitations, and edema, Respiratory: Negative for shortness of breath, cough, wheezing, and pleuritic chest pain, Abdomen/GI: Negative for abdominal pain, nausea, vomiting, diarrhea, and constipation, Back: Negative for injury and pain, : Negative for injury, bleeding, discharge, and swelling, MS/Extremity: Negative for injury and deformity, Neuro: Negative for headache, weakness, numbness, tingling, and seizure, Psych: Negative for depression, anxiety, suicide ideation, homicidal ideation, and hallucinations. 23:37 Skin: Positive for abscess, of the submental area. Exam: 23:33 Constitutional: This is a well developed, well nourished patient who is awake, alert, snw and in no acute distress. Head/Face: Normocephalic, atraumatic. Eyes: Pupils equal round and reactive to light, extra-ocular motions intact. Lids and lashes normal. Conjunctiva and sclera are non-icteric and not injected. Cornea within normal limits. Periorbital areas with no swelling, redness, or edema. Neck: Trachea midline, no thyromegaly or masses palpated, and no cervical lymphadenopathy. Supple, full range of motion without nuchal rigidity, or vertebral point tenderness. No Meningismus. Chest/axilla: Normal chest wall appearance and motion. Nontender with no deformity. No lesions are appreciated. Cardiovascular: Regular rate and rhythm with a normal S1 and S2. No gallops, murmurs, or rubs. Normal PMI, no JVD. No pulse deficits. Respiratory: Lungs have equal breath sounds bilaterally, clear to auscultation and percussion. No rales, rhonchi or wheezes noted. No increased work of breathing, no retractions or nasal flaring. Abdomen/GI: Soft, non-tender, with normal bowel sounds. No distension or tympany. No guarding or rebound. No evidence of tenderness throughout. Back: No spinal tenderness. No costovertebral tenderness. Full range of motion. Skin: Warm, dry with normal turgor. Normal color with no rashes, no lesions, and no evidence of cellulitis. MS/ Extremity: Pulses equal, no cyanosis. Neurovascular intact. Full, normal range of motion. Neuro: Awake and alert, GCS 15, oriented to person, place, time, and situation. Cranial nerves II-XII grossly intact. Motor strength 5/5 in all extremities. Sensory grossly intact. Cerebellar exam normal. Normal gait. Psych: Awake, alert, with orientation to person, place and time. Behavior, mood, and affect are within normal limits. 23:33 ENT: External ear(s): are unremarkable, TM's: are normal, Nose: is normal, Mouth: no acute changes, Posterior pharynx: is normal, Voice: is normal, submental area with multiple pustules, mild confluent erythema, around shaved area of chin, + anterior cervical lad, no elevation of floor of mouth,. Vital Signs: 22:15 BP 144 / 89; Pulse 100; Resp 17 S; Temp 97.8(TE); Pulse Ox 100% on R/A; Weight 79.38 kg jd3 (R); Height 5 ft. 8 in. (172.72 cm) (R); Pain 5/10; 22:15 Body Mass Index 26.61 (79.38 kg, 172.72 cm) jd3 MDM: 23:16 Patient medically screened. snw 23:35 Data reviewed: vital signs, nurses notes. Data interpreted: Pulse oximetry: on room air snw is 100 %. Interpretation: normal. Counseling: I had a detailed discussion with the patient and/or guardian regarding: the historical points, exam findings, and any diagnostic results supporting the discharge/admit diagnosis, lab results, the need for outpatient follow up, for definitive care, to return to the emergency department if symptoms worsen or persist or if there are any questions or concerns that arise at home. ED course: FSBS 98mg/dl. 08/30 23:22 Order name: FSBS; Complete Time: 23:45 snw Administered Medications: 23:47 Drug: Tetanus-Diphtheria Toxoid Adult 0.5 ml {[employer]: [employer]. Exp: vc 06/05/2021. Lot #: [id number]. } Route: IM; Site: left deltoid; 23:49 Follow up: Response: Medication administered at discharge. vc 23:47 Drug: Hibiclens 4 % 1 application Route: Topical; Site: chin; vc 23:48 Drug: Doxycycline 100 mg Route: PO; vc 23:49 Follow up: Response: No adverse reaction vc Disposition: 08/31 04:01 Co-signature as Attending Physician, Cole Castellon MD. pkl Disposition: 08/30/19 23:23 Discharged to Home. Impression: Folliculitis. - Condition is Stable. - Discharge Instructions: VIS, Tetanus, Diphtheria (Td) - CDC, Folliculitis, Hand Washing, Wound Care. - Prescriptions for Doxycycline Hyclate 100 mg Oral Tablet - take 1 tablet by ORAL route every 12 hours; 20 tablet. - Medication Reconciliation Form, Thank You Letter, Antibiotic Education, Prescription Opioid Use form. - Follow up: Emergency Department; When: As needed; Reason: Worsening of condition. Follow up: Private Physician; When: 2 - 3 days; Reason: Recheck today's complaints, Continuance of care, Re-evaluation by your physician. - Notes: Throw away current razor. Do not squeeze infected areas. Signatures: Cole Castellon MD MD pkl Frances Max, SALES TRAINING COORDINATOR-C SALES TRAINING COORDINATOR-Niw Akash Liu, RN RN jd3 Kelly Mancini RN RN vc Corrections: (The following items were deleted from the chart) 08/30 23:50 23:23 08/30/2019 23:23 Discharged to Home. Impression: Folliculitis. Condition is vc Stable. Forms are Medication Reconciliation Form, Thank You Letter, Antibiotic Education, Prescription Opioid Use. Follow up: Emergency Department; When: As needed; Reason: Worsening of condition. Follow up: Private Physician; When: 2 - 3 days; Reason: Recheck today's complaints, Continuance of care, Re-evaluation by your physician. snw
--- NOTE | 2019-08-31 01:56 | ER ---
Nurse's Notes [facility] Name: Chang Cr Age: 24 yrs Sex: Male : 1995 Arrival Date: 08/30/2019 Time: 22:08 Bed 13 Private MD: Diagnosis: Folliculitis Presentation: 08/30 22:13 Presenting complaint: Patient states: "I have an abscess under my chin.". Transition of jd3 care: patient was not received from another setting of care. Onset of symptoms was August 30, 2019. Risk Assessment: Do you want to hurt yourself or someone else? Patient reports no desire to harm self or others. Initial Sepsis Screen: Does the patient meet any 2 criteria? No. Patient's initial sepsis screen is negative. Does the patient have a suspected source of infection? No. Patient's initial sepsis screen is negative. Care prior to arrival: None. 22:13 Method Of Arrival: Ambulatory jd3 22:13 Acuity: PAO 4 jd3 Triage Assessment: 23:13 General: Appears in no apparent distress. uncomfortable, Behavior is calm, cooperative, vc appropriate for age. Pain: Complains of pain in UNDER CHIN. EENT: No signs and/or symptoms were reported regarding the EENT system. Neuro: Level of Consciousness is awake, alert, obeys commands, Oriented to person, place, time, situation, Appropriate for age. Cardiovascular: Patient's skin is warm and dry. Respiratory: Respiratory effort is even, unlabored, Respiratory pattern is regular, symmetrical. GI: No signs and/or symptoms were reported involving the gastrointestinal system. : No signs and/or symptoms were reported regarding the genitourinary system. Derm: Skin temperature is warm. Musculoskeletal: Circulation, motion, and sensation intact. Range of motion: intact in all extremities. Historical: - Allergies: 22:15 No Known Allergies; jd3 - Home Meds: 22:15 citalopram 20 mg tab 2 tabs once daily [Active]; levothyroxine 100 mcg tab 1 tab once jd3 daily [Active]; - PMHx: 22:15 Depression; Hypothyroidism; Lower GI Bleed; jd3 - PSHx: 22:15 None; jd3 - Immunization history:: Adult Immunizations up to date. - Coronavirus screen:: The patient has NOT traveled to [place] in the past 14 days. The patient has NOT had contact with known/suspected case of Coronavirus? Proceed with normal triage procedures. - Social history:: Smoking status: Patient reports the use of cigarette tobacco products, smokes one-half pack cigarettes per day. - Ebola Screening: : Patient negative for fever greater than or equal to 101.5 degrees Fahrenheit, and additional compatible Ebola Virus Disease symptoms. Screenin:11 Abuse screen: Denies threats or abuse. Nutritional screening: No deficits noted. vc Tuberculosis screening: No symptoms or risk factors identified. Fall Risk None identified. Assessment: 23:12 Respiratory: Airway is patent Respiratory effort is even, unlabored. vc 23:18 Reassessment: SEE TRIAGE FOR ASSESSMENT. vc Vital Signs: 22:15 BP 144 / 89; Pulse 100; Resp 17 S; Temp 97.8(TE); Pulse Ox 100% on R/A; Weight 79.38 kg jd3 (R); Height 5 ft. 8 in. (172.72 cm) (R); Pain 5/10; 22:15 Body Mass Index 26.61 (79.38 kg, 172.72 cm) jd3 ED Course: 22:00 Patient has correct armband on for positive identification. vc 22:08 Patient arrived in ED. jg7 22:14 Triage completed. jd3 22:16 Arm band placed on. jd3 22:40 Frances Max [facility]-C [facility]. snw 22:40 Cole Castellon MD is Attending Physician. snw 23:11 Kelly Mancini, RN is Primary Nurse. vc 23:50 No provider procedures requiring assistance completed. Patient did not have IV access vc during this emergency room visit. Administered Medications: 23:47 Drug: Tetanus-Diphtheria Toxoid Adult 0.5 ml {[place]: [employer]. Exp: vc 06/05/2021. Lot #: [id number]. } Route: IM; Site: left deltoid; 23:49 Follow up: Response: Medication administered at discharge. vc 23:47 Drug: Hibiclens 4 % 1 application Route: Topical; Site: chin; vc 23:48 Drug: Doxycycline 100 mg Route: PO; vc 23:49 Follow up: Response: No adverse reaction vc Outcome: 23:23 Discharge ordered by . snw 23:50 Patient left the ED. vc 23:50 Discharged to home ambulatory. 23:50 Condition: good 23:50 Discharge instructions given to patient. Signatures: Frances Max, DIRECTOR STATE PHARMACY-C DIRECTOR STATE PHARMACY-Csnw Akash Liu RN RN jd3 Nishi Pacheco jg7 Kelly Mancini RN RN vc
[2019-08-31 03:59] VITALS: BP 144/89; TEMP 97.8; O2SAT 100
== END 2019-08-30 23:50 | disposition home or self-care (01) ==
LOC: ER 22:04
DX: L73.9 Follicular disorder, unspecified (principal); E03.9 Hypothyroidism, unspecified; F32.9 Major depressive disorder, single episode, unspecified; F17.210 Nicotine dependence, cigarettes, uncomplicated; Z23 Encounter for immunization
CPT/HCPCS: 82947; 90471; 90714; 99283

== ENCOUNTER 2020-06-28 05:09 | Emergency (ER) | payer MEDICARE, SELFPAY ==
[2020-06-28] MEDS ORDERED: NA CHLORIDE 0.9% 1,000 ML ONE (05:56)
[2020-06-28 06:21] LABS: Absolute Lymphocytes (CBC) 3.3 K/uL (0.7-4.9); Basophils % 1.2 % (0-1.3); Hematocrit 43.7 % (39.6-49.0); Lymphocytes % 34.5 % (15.3-44.8); MPV 9.5 fL (7.6-11.3); RBC Red Blood Cell Count 4.83 M/uL (4.33-5.43)
--- NOTE | 2020-06-28 06:35 | ER ---
Nurse's Notes [facility] Name: Chang Cr Age: 25 yrs Sex: Male : 1995 Arrival Date: 06/28/2020 Time: 05:12 Bed 16 Private MD: Diagnosis: Diarrhea, unspecified-bloody stool Presentation: 06/28 05:27 Chief complaint: Patient states: I need to follow up with a GI doc but I haven't been dm5 able to do that yet. I was seen about a year ago for the same thing. It will seem to get better and then worse. I thought it was related to the Citalopram I was taking and it eased up some when I switched to Wellbutrin but it has returned. Sometimes it is just a little bit like possibly hemorrhoids but sometimes its like today where I am pouring blood. Coronavirus screen: Client denies travel out of the [place] in the last 14 days. At this time, the client does not indicate any symptoms associated with coronavirus-19. Ebola Screen: Patient negative for fever greater than or equal to 101.5 degrees Fahrenheit, and additional compatible Ebola Virus Disease symptoms Patient denies exposure to infectious person. Patient denies travel to an Ebola-affected area in the 21 days before illness onset. No symptoms or risks identified at this time. Initial Sepsis Screen: Does the patient meet any 2 criteria? HR > 90 bpm. No. Patient's initial sepsis screen is negative. Does the patient have a suspected source of infection? Yes: Acute abdominal pain. Risk Assessment: Do you want to hurt yourself or someone else? Patient reports no desire to harm self or others. Onset of symptoms was June 28, 2020. 05:27 Method Of Arrival: Ambulatory 5 05:27 Acuity: PAO 3 dm5 Triage Assessment: 05:31 General: Appears in no apparent distress. uncomfortable, Behavior is calm, cooperative. dm5 Pain: Complains of pain in left upper quadrant Pain currently is 2 out of 10 on a pain scale. at worst was 7 out of 10 on a pain scale. Quality of pain is described as Empty feeling, sometimes a warm feeling. Neuro: Level of Consciousness is awake, alert, obeys commands, Oriented to person, place, time, situation. Cardiovascular: No deficits noted. Respiratory: No deficits noted. GI: Reports upper abdominal pain, bloody stool. : No signs and/or symptoms were reported regarding the genitourinary system. Derm: Skin is pink, warm \T\ dry. Historical: - Allergies: : No Known Allergies; dm5 - Home Meds: : levothyroxine 100 mcg tab 1 tab once daily [Active]; Wellbutrin Oral [Active]; dm5 - PMHx: :31 Depression; Hypothyroidism; Lower GI Bleed; dm5 - PSHx: :31 None; dm5 - Immunization history:: Adult Immunizations up to date. - Social history:: Patient/guardian denies using alcohol, street drugs, The patient lives with family, Smoking status: Patient denies any tobacco usage or history of. - Family history:: not pertinent. Screenin:30 Abuse screen: Denies threats or abuse. Nutritional screening: No deficits noted. ll2 Tuberculosis screening: No symptoms or risk factors identified. Fall Risk None identified. Assessment: 05:30 General: Appears in no apparent distress. Behavior is calm, cooperative, appropriate ll2 for age. Pain: Denies pain. Neuro: Level of Consciousness is awake, alert, obeys commands, Oriented to person, place, time, situation. Cardiovascular: Patient's skin is warm and dry. Respiratory: Airway is patent Respiratory effort is even, unlabored, Respiratory pattern is regular, symmetrical. GI: Reports bloody stool. : No signs and/or symptoms were reported regarding the genitourinary system. EENT: No signs and/or symptoms were reported regarding the EENT system. Derm: Skin is intact, is healthy with good turgor, Skin is dry, Skin is pink, warm \T\ dry. Skin temperature is warm. Musculoskeletal: Circulation, motion, and sensation intact. Range of motion: intact in all extremities. 06:30 Reassessment: Patient and/or family updated on plan of care and expected duration. Pain ll2 level reassessed. Patient is alert, oriented x 3, equal unlabored respirations, skin warm/dry/pink. Vital Signs: 05:27 BP 130 / 97; Pulse 122; Resp 18; Temp 98.5(O); Pulse Ox 99% on R/A; Weight 81.65 kg; dm5 Height 5 ft. 8 in. (172.72 cm); Pain 2/10; 05:30 BP 138 / 95; Pulse 002; Resp 18; Pulse Ox 99% on R/A; ll2 06:30 BP 131 / 98; Pulse 112; Resp 18; Pulse Ox 100% on R/A; ll2 05:27 Body Mass Index 27.37 (81.65 kg, 172.72 cm) [facility] [place] ED Course: 05:12 Patient arrived in ED. bp1 05:22 Suhail Das MD is Attending Physician. ma2 05:30 Triage completed. 5 05:30 Patient has correct armband on for positive identification. Bed in low position. Call ll2 light in reach. Side rails up X 1. Pulse ox on. NIBP on. 05:30 No provider procedures requiring assistance completed. Initial lab(s) drawn, by me, ll2 sent to lab. Inserted saline lock: 20 gauge in right antecubital area, using aseptic technique. Blood collected. 05:31 Arm band placed on right wrist. Patient placed in an exam room. 5 05:35 Harriett Polo, RN is Primary Nurse. ll2 07:00 IV discontinued, intact, bleeding controlled, No redness/swelling at site. Pressure ll2 dressing applied. Administered Medications: 05:46 Drug: NS 0.9% 1000 ml Route: IV; Rate: 1 bolus; Site: right antecubital; ll2 07:10 Follow up: Response: No adverse reaction; IV Status: Completed infusion; IV Intake: ll2 1000ml Intake: 07:10 IV: 1000ml; Total: 1000ml. ll2 Outcome: 05:30 Discharged to home ambulatory. ll2 05:30 Condition: stable 05:30 Discharge instructions given to patient, Instructed on discharge instructions, follow up and referral plans. Demonstrated understanding of instructions, follow-up care. 06:35 Discharge ordered by . ma2 07:24 Patient left the ED. ll2 Signatures: Jacklyn Leslie, RN RN [facility], [place] Suhail Das MD MD ga2 Harriett Polo, MEGAN RN 2 Jennifer Myers bp1
--- NOTE | 2020-06-28 06:35 | EDPHYS ---
Physician Documentation [facility] Name: Chang Cr Age: 25 yrs Sex: Male : 1995 Arrival Date: 06/28/2020 Time: 05:12 Bed 16 Private MD: ED Physician Suhail Das HPI: 06/28 06:13 This 25 yrs old Male presents to ER via Ambulatory with complaints of Bloody ma2 Stools. 06:13 This 25 yrs old Male presents to ER via Ambulatory with complaints of Bloody ma2 Stools. 06:13 Onset: The symptoms/episode began/occurred gradually, 1 day(s) ago. Associated signs ma2 and symptoms: Pertinent positives: blood in stools, Pertinent negatives: constipation, fever, headache, shortness of breath, testicular pain, vomiting blood. Severity of pain: At its worst the pain was mild in the emergency department the pain has resolved. The patient has experienced similar episodes in the past. had 1 episodes of rectal bleeding with stool, yesterday that resolved, he has no similar episode or other symptoms since then . Historical: - Allergies: 05:31 No Known Allergies; dm5 - Home Meds: 05:31 levothyroxine 100 mcg tab 1 tab once daily [Active]; Wellbutrin Oral [Active]; dm5 - PMHx: 05:31 Depression; Hypothyroidism; Lower GI Bleed; dm5 - PSHx: 05:31 None; dm5 - Immunization history:: Adult Immunizations up to date. - Social history:: Patient/guardian denies using alcohol, street drugs, The patient lives with family, Smoking status: Patient denies any tobacco usage or history of. - Family history:: not pertinent. ROS: 06:13 Constitutional: Negative for fever, chills, and weight loss. ma2 06:13 All other systems are negative. Exam: 06:13 Constitutional: This is a well developed, well nourished patient who is awake, alert, ma2 and in no acute distress. Head/Face: Normocephalic, atraumatic. Eyes: Pupils equal round and reactive to light, extra-ocular motions intact. Lids and lashes normal. Conjunctiva and sclera are non-icteric and not injected. Cornea within normal limits. Periorbital areas with no swelling, redness, or edema. ENT: Nares patent. No nasal discharge, no septal abnormalities noted. Tympanic membranes are normal and external auditory canals are clear. Oropharynx with no redness, swelling, or masses, exudates, or evidence of obstruction, uvula midline. Mucous membranes moist. Neck: Trachea midline, no thyromegaly or masses palpated, and no cervical lymphadenopathy. Supple, full range of motion without nuchal rigidity, or vertebral point tenderness. No Meningismus. Chest/axilla: Normal chest wall appearance and motion. Nontender with no deformity. No lesions are appreciated. Cardiovascular: Regular rate and rhythm with a normal S1 and S2. No gallops, murmurs, or rubs. Normal PMI, no JVD. No pulse deficits. Respiratory: Lungs have equal breath sounds bilaterally, clear to auscultation and percussion. No rales, rhonchi or wheezes noted. No increased work of breathing, no retractions or nasal flaring. Abdomen/GI: Soft, non-tender, with normal bowel sounds. No distension or tympany. No guarding or rebound. No evidence of tenderness throughout. Back: No spinal tenderness. No costovertebral tenderness. Full range of motion. MS/ Extremity: Pulses equal, no cyanosis. Neurovascular intact. Full, normal range of motion. Neuro: Awake and alert, GCS 15, oriented to person, place, time, and situation. Cranial nerves II-XII grossly intact. Motor strength 5/5 in all extremities. Sensory grossly intact. Cerebellar exam normal. Normal gait. Vital Signs: 05:27 BP 130 / 97; Pulse 122; Resp 18; Temp 98.5(O); Pulse Ox 99% on R/A; Weight 81.65 kg; dm5 Height 5 ft. 8 in. (172.72 cm); Pain 2/10; 05:30 BP 138 / 95; Pulse 002; Resp 18; Pulse Ox 99% on R/A; ll2 06:30 BP 131 / 98; Pulse 112; Resp 18; Pulse Ox 100% on R/A; ll2 05:27 Body Mass Index 27.37 (81.65 kg, 172.72 cm) dm5 MDM: 05:26 Patient medically screened. ma2 06:13 Differential diagnosis: gastritis, gastroesophageal reflux disease, GI Bleed, Irritable ma2 bowel syndrome. Data reviewed: vital signs, nurses notes. Counseling: I had a detailed discussion with the patient and/or guardian regarding: the historical points, exam findings, and any diagnostic results supporting the discharge/admit diagnosis, the presence of at least one elevated blood pressure reading (>120/80) during this emergency department visit, the need for outpatient follow up. Response to treatment: the patient's symptoms have resolved after treatment. ED course: had 1 episode of painless rectal bleeding, dd includes internal hemorrhoid, unlikely gi bleeding, as this has resolved.. he had this in the past. he has not seen gi doctor yet. no active bleeding at this time. i advised him to see gi.. and return to er for worsening of his symptoms or any other symptoms.. . 06/28 05:18 Order name: Basic Metabolic Panel; Complete Time: 06:57 ma2 06/28 05:18 Order name: CBC with Diff; Complete Time: 06:28 ma2 06/28 05:18 Order name: Hepatic Function; Complete Time: 06:57 ma2 06/28 05:18 Order name: Lipase; Complete Time: 06:57 ma2 06/28 05:18 Order name: IV Saline Lock; Complete Time: 06:53 ma2 06/28 05:18 Order name: Labs collected and sent; Complete Time: 06:53 ma2 Administered Medications: 05:46 Drug: NS 0.9% 1000 ml Route: IV; Rate: 1 bolus; Site: right antecubital; ll2 07:10 Follow up: Response: No adverse reaction; IV Status: Completed infusion; IV Intake: ll2 1000ml Disposition: 06/28/20 06:35 Discharged to Home. Impression: Diarrhea, unspecified - bloody stool. - Condition is Stable. - Discharge Instructions: Rectal Bleeding. - Medication Reconciliation Form, Thank You Letter, Antibiotic Education, Prescription Opioid Use, Work release form form. - Follow up: Private Physician; When: Tomorrow; Reason: Continuance of care. Signatures: Dispatcher [employer] Jacklyn Pimentel RN RN dm5 Suhail Das MD MD ma2 Harriett Polo RN RN ll2 Corrections: (The following items were deleted from the chart) 07:24 06:35 06/28/2020 06:35 Discharged to Home. Impression: Diarrhea, unspecified - bloody ll2 stool. Condition is Stable. Forms are Medication Reconciliation Form, Thank You Letter, Antibiotic Education, Prescription Opioid Use. Follow up: Private Physician; When: Tomorrow; Reason: Continuance of care. ma2
[2020-06-28 06:42] LABS: ALT/SGPT 62 U/L (12-78); AST/SGOT 43 U/L (15-37); Albumin 4.5 g/dL (3.4-5.0); Alkaline Phosphatase 99 U/L (45-117); BUN Blood Urea Nitrogen 13 mg/dL (7-18); Bicarbonate 30 mmol/L (21-32); Bilirubin Direct < 0.1 mg/dL (0-0.2); Bilirubin Total 0.4 mg/dL (0.2-1.0); Glucose Level 104 mg/dL (74-106); Lipase 91 U/L (73-393); Potassium 3.7 mmol/L (3.5-5.1); Protein, Total 8.5 g/dL (6.4-8.2); Sodium Level 139 mmol/L (136-145)
[2020-06-29 05:59] VITALS: TEMP 98.5
[2020-06-29 06:02] VITALS: BP 131/98; O2SAT 100
== END 2020-06-28 07:24 | disposition home or self-care (01) ==
LOC: ER 05:09
DX: K92.1 Melena (principal); E03.9 Hypothyroidism, unspecified; F32.9 Major depressive disorder, single episode, unspecified
CPT/HCPCS: 36415; 80048; 80076; 83690; 85025; 96360; 99284; J7030

== ENCOUNTER 2020-10-25 11:44 | Emergency (ER) | payer MEDICARE, SELFPAY ==
[2020-10-25] MEDS ORDERED: LIDOCAINE 1% MPF 5 ML VIAL ONE (14:51)
[2020-10-25] MEDS ORDERED: HYDROCODONE/APAP 5/325 MG TAB ONE (14:51)
[2020-10-25] MEDS ORDERED: TETANUS & DIPHTHERIA TOX,ADULT 0.5 ML VIAL ONE (14:52)
--- NOTE | 2020-10-25 14:57 | ER ---
Nurse's Notes [facility] Name: Chang Cr Age: 25 yrs Sex: Male : 1995 Arrival Date: 10/25/2020 Time: 11:49 Bed 30 Private MD: Diagnosis: Laceration without foreign body of lip Presentation: 10/25 12:48 Chief complaint: Patient states: 2 small laceration noted to lower lip and one to L ss upper lip. No active bleeding at this time. Coronavirus screen: Client denies travel out of the [place] in the last 14 days. Ebola Screen: Patient denies exposure to infectious person. Patient denies travel to an Ebola-affected area in the 21 days before illness onset. Initial Sepsis Screen: Does the patient meet any 2 criteria? No. Patient's initial sepsis screen is negative. Does the patient have a suspected source of infection? No. Patient's initial sepsis screen is negative. Risk Assessment: Do you want to hurt yourself or someone else? Patient reports no desire to harm self or others. Onset of symptoms was October 25, 2020. 12:48 Method Of Arrival: Ambulatory ss 12:48 Acuity: PAO 4 ss Historical: - Allergies: 12:50 No Known Allergies; ss - PMHx: 12:50 Depression; Hypothyroidism; Lower GI Bleed; ss - PSHx: 12:50 None; ss - Immunization history:: Adult Immunizations up to date. - Social history:: Smoking status: Patient denies any tobacco usage or history of. Screenin:20 Abuse screen: Denies threats or abuse. Nutritional screening: No deficits noted. aa5 Tuberculosis screening: No symptoms or risk factors identified. Fall Risk None identified. Assessment: 14:20 General: Appears comfortable, Behavior is calm, cooperative. Pain: Complains of pain in aa5 mouth. Neuro: Level of Consciousness is awake, alert, obeys commands, Oriented to person, place, time, situation. Cardiovascular: Patient's skin is warm and dry. Respiratory: Airway is patent Respiratory effort is even, unlabored, Respiratory pattern is regular, symmetrical. GI: No signs and/or symptoms were reported involving the gastrointestinal system. : No signs and/or symptoms were reported regarding the genitourinary system. EENT: No signs and/or symptoms were reported regarding the EENT system. Derm: Skin is pink, warm \T\ dry. 2 small lacerations noted to lower lip and 1 small laceration noted to upper lip, no active bleeding noted. Musculoskeletal: Range of motion: intact in all extremities. 15:05 Reassessment: Patient is alert, oriented x 3, equal unlabored respirations, skin aa5 warm/dry/pink. Vital Signs: 12:48 BP 128 / 91; Pulse 104; Resp 16; Temp 97.6(TE); Pulse Ox 99% on R/A; Weight 81.65 kg; ss Height 5 ft. 8 in. (172.72 cm); Pain 3/10; 14:14 BP 136 / 91; Pulse 96; Pulse Ox 100% ; Pain 3/10; jp3 12:48 Body Mass Index 27.37 (81.65 kg, 172.72 cm) ss [place] Coma Score: 14:26 Eye Response: spontaneous(4). Verbal Response: oriented(5). Motor Response: obeys kb commands(6). Total: 15. 14:27 Eye Response: spontaneous(4). Verbal Response: oriented(5). Motor Response: obeys kb commands(6). Total: 15. ED Course: 11:49 Patient arrived in ED. mr 12:49 Triage completed. ss 12:50 Arm band placed on right wrist. ss 14:09 Nargis Mandel, MEGAN is Primary Nurse. aa5 14:09 Sosa Gerber FNP-C [facility]. kb 14:09 Toribio Maurice MD is Attending Physician. kb 14:14 Bed in low position. Call light in reach. Side rails up X 1. Ice pack to injury. Verbal jp3 reassurance given. Pulse ox on. NIBP on. 14:50 Assist provider with laceration repair on upper and lower lip using sutures. Set up aa5 tray. Performed by Sosa MOORE Patient tolerated well. 15:05 Patient did not have IV access during this emergency room visit. aa5 Administered Medications: 14:35 Drug: Tetanus-Diphtheria Toxoid Adult 0.5 ml {Open Die Inspector: [employer]. Exp: aa5 10/22/2021. Lot #: [id number]. } Route: IM; Site: right deltoid; 15:05 Follow up: Response: No adverse reaction aa5 14:35 Drug: [place] (HYDROcodone-acetaminophen) 5 mg-325 mg 1 tabs Route: PO; aa5 15:05 Follow up: Response: No adverse reaction aa5 14:50 Drug: Lidocaine (1 %) 1 vials {Note: administered by BINDERY MACHINE SETTER/SET UP OPERATOR for laceration repair.} Volume: aa5 5 ml; Route: Infiltration; Outcome: 14:57 Discharge ordered by . becky 15:05 Discharged to home ambulatory. aa5 15:05 Condition: good 15:05 Discharge instructions given to patient, Instructed on discharge instructions, follow up and referral plans. Demonstrated understanding of instructions, follow-up care. 15:08 Patient left the ED. aa5 Signatures: Sosa Gerber, PAULAC DEPUTY [employer]-CkBeverly Ayoub Mandel, Nargis, RN RN aa5 Lakisha Dumont, MEGAN RN ss Raphael Enamorado jp3 Corrections: (The following items were deleted from the chart) 19:16 14:20 Derm: Skin is pink, warm \T\ dry. 2 small lacerations noted to lower lip, no active aa5 bleeding noted. aa5
--- NOTE | 2020-10-25 14:57 | EDPHYS ---
Physician Documentation [facility] Name: Chang Cr Age: 25 yrs Sex: Male : 1995 Arrival Date: 10/25/2020 Time: 11:49 Bed 30 Private MD: ED Physician Toribio Maurice HPI: 10/25 14:27 This 25 yrs old Male presents to ER via Ambulatory with complaints of Facial kb Injury. 14:27 The patient or guardian reports injury, a laceration, 0.5 cm(s), clean, pain. The kb complaints affect the upper vermilion border and chin. Context of injury: The problem was sustained at work, resulted from part of tool broke and hit pt in the mouth. Onset: The symptoms/episode began/occurred just prior to arrival. Associated signs and symptoms: Loss of consciousness: This patient did not experience any loss of consciousness. Pertinent positives: injury, Pertinent negatives: the patient has not experienced a loss of conciousness. Severity of symptoms: At their worst the symptoms were mild, in the emergency department the symptoms are unchanged. The patient has not experienced similar symptoms in the past. The patient has not recently seen a physician. Historical: - Allergies: 12:50 No Known Allergies; ss - PMHx: 12:50 Depression; Hypothyroidism; Lower GI Bleed; ss - PSHx: 12:50 None; ss - Immunization history:: Adult Immunizations up to date. - Social history:: Smoking status: Patient denies any tobacco usage or history of. ROS: 14:26 Constitutional: Negative for fever, chills, and weight loss, Respiratory: Negative for kb shortness of breath, cough, wheezing, and pleuritic chest pain, Neuro: Negative for headache, weakness, numbness, tingling, and seizure. 14:26 Skin: Positive for laceration(s), of the upper vermilion border and chin. Exam: 14:26 Constitutional: This is a well developed, well nourished patient who is awake, alert, kb and in no acute distress. Respiratory: Respirations even and unlabored. No increased work of breathing, no retractions or nasal flaring. Neuro: Awake and alert, GCS 15, oriented to person, place, time, and situation. Moves all extremities. Normal gait. 14:26 Head/face: Noted is no obvious of injury or deformity except a laceration(s), that is superficial. 14:26 Skin: injury, laceration(s), the wound is approximately 1 cm(s), of the upper vermilion border, the second wound is approximately 0.5 cm(s), of the just below lower lip, the third wound is approximately 0.5 cm(s), of the just below lower lip, that can be described as clean, no foreign body, linear, without bleeding. Vital Signs: 12:48 BP 128 / 91; Pulse 104; Resp 16; Temp 97.6(TE); Pulse Ox 99% on R/A; Weight 81.65 kg; ss Height 5 ft. 8 in. (172.72 cm); Pain 3/10; 14:14 BP 136 / 91; Pulse 96; Pulse Ox 100% ; Pain 3/10; jp3 12:48 Body Mass Index 27.37 (81.65 kg, 172.72 cm) [place] Coma Score: 14:26 Eye Response: spontaneous(4). Verbal Response: oriented(5). Motor Response: obeys kb commands(6). Total: 15. 14:27 Eye Response: spontaneous(4). Verbal Response: oriented(5). Motor Response: obeys kb commands(6). Total: 15. Laceration: 14:57 Wound Repair of 1cm ( 0.4in ) subcutaneous laceration to upper vermilion border. kb Irregularly shaped.. Distal neuro/vascular/tendon intact. Anesthesia: Local anesthetic administered with 0.5 mls of 1% lidocaine. Wound prep: Extensive cleansing with hibiclenz by mn, Wound irrigation with saline by me. Skin closed with 2 5-0 fast absorbing gut using simple sutures and sterile technique. Patient tolerated well. 14:57 Wound Repair of 0.5cm ( 0.2in ) subcutaneous laceration to chin. Linear shaped.. Distal kb neuro/vascular/tendon intact. Anesthesia: Local anesthetic administered with 0.5 mls of 1% lidocaine. Wound prep: Extensive cleansing with hibiclenz by mn, Wound irrigation with saline by me. Skin closed with 1 5-0 fast absorbing gut using simple sutures and sterile technique. Patient tolerated well. 14:57 Wound Repair of 0.5cm ( 0.2in ) subcutaneous laceration to chin. Linear shaped.. Distal kb neuro/vascular/tendon intact. Anesthesia: Wound infiltrated with 0.5 mls of 1% lidocaine. Wound prep: Extensive cleansing with hibiclenz by me. Skin closed with 1 5-0 fast absorbing gut using simple sutures and sterile technique. Patient tolerated well. MDM: 14:09 Patient medically screened. kb 14:25 Data reviewed: vital signs, nurses notes. Data interpreted: Pulse oximetry: on room air kb is 100 %. Interpretation: normal. 14:27 Counseling: I had a detailed discussion with the patient and/or guardian regarding: the kb historical points, exam findings, and any diagnostic results supporting the discharge/admit diagnosis, the need for outpatient follow up, a family practitioner, to return to the emergency department if symptoms worsen or persist or if there are any questions or concerns that arise at home. 10/25 14:16 Order name: Vicryl, Sutures; Complete Time: 15:03 kb 10/25 14:16 Order name: Gloves, Sterile; Complete Time: 15:03 kb 10/25 14:16 Order name: Setup Suture Tray; Complete Time: 15:03 kb Administered Medications: 14:35 Drug: Tetanus-Diphtheria Toxoid Adult 0.5 ml {Driver Education Instructor: [employer]. Exp: aa5 10/22/2021. Lot #: [id number]. } Route: IM; Site: right deltoid; 15:05 Follow up: Response: No adverse reaction aa5 14:35 Drug: [place] (HYDROcodone-acetaminophen) 5 mg-325 mg 1 tabs Route: PO; aa5 15:05 Follow up: Response: No adverse reaction aa5 14:50 Drug: Lidocaine (1 %) 1 vials {Note: administered by ANDROID PROGRAMMER for laceration repair.} Volume: aa5 5 ml; Route: Infiltration; Disposition: 17:21 Co-signature as Attending Physician, Toribio Maurice MD. rn Disposition: 10/25/20 14:57 Discharged to Home. Impression: Laceration without foreign body of lip. - Condition is Stable. - Discharge Instructions: Mouth Laceration, [id number]. - Work release form, Medication Reconciliation Form, Thank You Letter, Antibiotic Education, Prescription Opioid Use form. - Follow up: Emergency Department; When: As needed; Reason: Worsening of condition. Follow up: Private Physician; When: 2 - 3 days; Reason: Recheck today's complaints, Continuance of care, Re-evaluation by your physician. Signatures: Sosa Gerber, BEE TENDER-C BEE TENDER-Ckb Toribio Maurice MD MD rn Calderon, Audri, RN RN aa5 Lakisha Dumont RN RN ss Corrections: (The following items were deleted from the chart) 15:00 14:26 Skin: injury, laceration(s), the wound is approximately 0.5 cm(s), of the upper kb vermilion border, the second wound is approximately 0.5 cm(s), of the just below lower lip, the third wound is approximately 0.5 cm(s), of the just below lower lip, that can be described as clean, no foreign body, linear, without bleeding, kb 15:03 14:16 Dressing - Wound ordered. kb aa5 15:08 14:57 10/25/2020 14:57 Discharged to Home. Impression: Laceration without foreign body aa5 of lip. Condition is Stable. Forms are Medication Reconciliation Form, Thank You Letter, Antibiotic Education, Prescription Opioid Use. Follow up: Emergency Department; When: As needed; Reason: Worsening of condition. Follow up: Private Physician; When: 2 - 3 days; Reason: Recheck today's complaints, Continuance of care, Re-evaluation by your physician. kb
[2020-10-25 15:13] VITALS: TEMP 97.6
[2020-10-25 15:14] VITALS: BP 136/91; O2SAT 100
== END 2020-10-25 15:08 | disposition home or self-care (01) ==
LOC: ER 11:44
PROC: 0JQ10ZZ Repair Face Subcutaneous Tissue and Fascia, Open Approach (ICD-10-PCS; principal; 2020-10-25)
PROC: 0CQ0XZZ Repair Upper Lip, External Approach (ICD-10-PCS; 2020-10-25)
DX: S01.511A Laceration without foreign body of lip, initial encounter (principal); S01.81XA Laceration without foreign body of other part of head, initial encounter; W22.8XXA Striking against or struck by other objects, initial encounter; Y93.89 Activity, other specified; Y92.89 Other specified places as the place of occurrence of the external cause; Y99.8 Other external cause status; Z23 Encounter for immunization
CPT/HCPCS: 90471; 90714; 99283

== ENCOUNTER 2022-03-17 10:57 | Emergency (ER) | payer BC, SELFPAY ==
--- OUTSIDE RECORDS SUMMARY | 2022-03-17 11:01 | XMS REPORT | Continuity of Care Document ---
:1995 Author Organization [facility] t Address [address] [place] [address] [address] [place] [address] Care Team Providers Name Role Phone PCP, PATIENT DOES NOT HAVE A Primary Care Physician Unavaila ble Rodrigo Perez DO Attending Clinician RODRIGO PEREZ Attending Clinician Unavailable RUDI ALMANZA Attending Clinician Unavailable Rudi Weir Attending Clinician Nurse, Adc Pob Immunization Attending Clinician Unavailable Ethan Nicolas DO Attending Clinician Shirin Arias Attending Clinician RODRIGO PEREZ Admitting Clinician Unavailable Problems Condition Condition Condition Status Onset Resolution Last Treating Co mments Source Name Details Category Date Date Treatment Clinician Date No known No known Disease Unive rs active active ity of problems problems [facility] Allergies, Adverse Reactions, Alerts Allergy Allergy Status Severity Reaction(s) Onset Inactive Treating Comm ents Source Name Type Date Date Clinician NO KNOWN Drug Active Univers ALLERGIE Class ity of [facility] Social History Social Habit Start Date Stop Date Quantity Comments Source Exposure to Not sure [facility] SARS-CoV-2 (event) Medica l Branch Sex Assigned At [birth year] [facility] 00:00:00 00:00:00 Medical Branch Smoking Status Start Date Stop Date Source Unknown if ever smoked [facility] [place] [facility] Medications Ordered Filled Start Stop Current Ordering Indication Dosage Frequency Signature Comments Components Source Medication Medication Date Date Medication? Clinician (SIG) Name Name iopamidol 2020-07- No [id number] 120mL 120 mL, Univers (ISOVUE 08-02 Intravenou ity o f 370-500 mL) 02:45: 02:45 s, ONCE, 1 [place] injection 00 :00 dose, On Medica l 120 mL [facility] Branch 06/01/21 at 2045, Routine NaCl 0.9% 2020-07- No 1000mL at 999 Uni vers (NS) bolus 08-02 mL/hr, ity of infusion 00:15: 02:36 1,000 mL, Adelfo as 1,000 mL 00 :00 IV Medical Infusion, Branch ONCE, 1 dose, On [place] 06/01/21 at 1815, STAT ondansetron 2020-07- No 4mg 4 mg, Slow Univers (ZOFRAN 08-02 IV Push, ity of (PF)) 00:15: 00:26 ONCE, 1 [place] injection 4 00 :00 dose, On Medi maite mg [facility] Branch 06/01/21 at 1815, Routine FENTanyl PF 2020-07- No 50ug 50 mcg, Un shagufta (SUBLIMAZE 08-02 Slow IV ity o f (PF)) 00:15: 00:26 Push, [place] injection 00 :00 ONCE, 1 Medical 50 mcg dose, On Branch [place] 06/01/21 at 1815, Routine ibuprofen 2020-07 Yes [id number] 800mg Take 1 U nivers 800 mg 1-25 tablet by ity of tablet 00:00: mouth [place] 00 every 8 Medical (eight) Branch hours as needed for Pain (scale 4-6). hyoscyamine 2020-07 Yes [id number] .125mg Take 1 Univers 0.125 mg 1-11 tablet by ity of tablet 00:00: mouth 4 00 (four) Medical times Branch daily as needed (abdominal cramping). hyoscyamine 2020-07 Yes [id number] .125mg Take 1 Univers 0.125 mg 1-11 tablet by ity of tablet 00:00: mouth 4 00 (four) Medical times Branch daily as needed (abdominal cramping). hyoscyamine 2020-07- No [id number] .125mg Take 1 Univers 0.125 mg 07-18 11-11 tablet by ity o f tablet 00:00: 00:00 mouth [place] 00 :00 every 6 Medical (six) Branch hours as needed (abdominal cramping). NaCl 0.9% 2020- No 500mL at 999 Univ ers (NS) bolus 03-03 mL/hr, 500 it y of infusion 22:30: 23:30 mL, IV [place] 500 mL 00 :00 Infusion, Medical ONCE, 1 Branch dose, 03/03/21 at 1730, STAT ketorolac 2020- No 30mg 30 mg, Unive rs (TORADOL) 03-03 Slow IV ity of injection 22:15: 22:47 Push, [place] 30 mg 00 :00 ONCE, 1 Medical dose, Sat Branch 03/03/21 at 1715, Routine
cannon crewmember approving Restricted medication : SHIRIN BERKOWITZ ondansetron 2015-0 Yes 4mg Take 1 Tab Univers (ZOFRAN 7-09 by mouth 4 ity of ODT) 4 mg 00:00: (four) [place] disintegrat 00 times Medical ing tablet daily as Branc h needed for Nausea and Vomiting (N/V). ondansetron 2015-0 Yes 4mg Take 1 Tab Univers (ZOFRAN 7-09 by mouth 4 ity of ODT) 4 mg 00:00: (four) [place] disintegrat 00 times Medical ing tablet daily as Branc h needed for Nausea and Vomiting (N/V). ondansetron 2015-0 Yes 4mg Take 1 Tab Univers (ZOFRAN 7-09 by mouth 4 ity of ODT) 4 mg 00:00: (four) [place] disintegrat 00 times Medical ing tablet daily as Branc h needed for Nausea and Vomiting (N/V). ondansetron 2015-0 Yes 4mg Take 1 Tab Univers (ZOFRAN 7-09 by mouth 4 ity of ODT) 4 mg 00:00: (four) [place] disintegrat 00 times Medical ing tablet daily as Branc h needed for Nausea and Vomiting (N/V). Immunizations Ordered Filled Immunization Date Status Comments [facility] e Immunization Name Name SARS-COV-2 COVID-19 2021-03-10 Completed Unive rsity of PFIZER VACCINE 00:00:00 [facility] SARS-COV-2 COVID-19 2021-03-10 Completed Unive rsity of PFIZER VACCINE 00:00:00 [facility] SARS-COV-2 COVID-19 2021-03-10 Completed Unive rsity of PFIZER VACCINE 00:00:00 [facility] SARS-COV-2 COVID-19 2021-02-19 Completed Unive rsity of PFIZER VACCINE 00:00:00 [facility] SARS-COV-2 COVID-19 2021-02-19 Completed Unive rsity of PFIZER VACCINE 00:00:00 [facility] SARS-COV-2 COVID-19 2021-02-19 Completed Unive rsity of PFIZER VACCINE 00:00:00 [facility] SARS-COV-2 COVID-19 2021-02-19 Completed Unive rsity of PFIZER VACCINE 00:00:00 [facility] Vital Signs Vital Name Observation Time Observation Value Comments Source Systolic blood 2021-06-02 02:00:00 130 mm[Hg] Univer sity of pressure [facility] Diastolic blood 2021-06-02 02:00:00 90 mm[Hg] Unive rsity of pressure [facility] Heart rate 2021-06-02 02:00:00 96 /min [facility] Body temperature 2021-06-02 02:00:00 36 María [facility] Res[facility] rate 2021-06-02 02:00:00 13 /min [facility] Oxygen saturation in 2021-06-02 02:00:00 100 /min [facility] Arterial blood by [facility] Pulse oximetry [place] Body height 2021-06-02 00:19:00 172.7 cm [facility] Body weight 2021-06-02 00:19:00 82.555 kg [facility] BMI 2021-06-02 00:19:00 27.67 kg/m2 [facility] Systolic blood 2021 21:11:00 132 mm[Hg] Univer sity of pressure [facility] Diastolic blood 2021 21:11:00 76 mm[Hg] Unive rsity of pressure [facility] Heart rate 2021 21:11:00 84 /min [facility] [place] [facility] Body temperature 2021 21:11:00 37.72 María [facility] Respiratory rate 2021 21:11:00 18 /min [facility] ersity of [facility] Body weight 2021 21:11:00 82.101 kg Universi ty of [facility] BMI 2021 21:11:00 27.52 kg/m2 Universi ty [facility] Oxygen saturation in 2021 21:11:00 97 /min University of Arterial blood by [facility] Pulse oximetry Branch Systolic blood 2021-03-04 00:00:00 124 mm[Hg] Univer sity of [facility] Diastolic blood 2021-03-04 00:00:00 83 mm[Hg] [facility] Heart rate 2021-03-04 00:00:00 82 /min [facility] [place] [facility] [place] Body temperature 2021-03-04 00:00:00 36.39 María [facility] Respiratory rate 2021-03-04 00:00:00 17 /min [facility] Oxygen saturation in 2021-03-04 00:00:00 100 /min University of Arterial blood by [facility] Pulse oximetry Branch Body height 2021-03-03 19:44:00 172.7 cm Universi ty [facility] Medical [place] Body weight 2021-03-03 19:44:00 79.379 kg Universi ty [facility] Medical [place] BMI 2021-03-03 19:44:00 26.61 kg/m2 Universi [facility] Medical [place] Procedures Procedure Date / Time Performing Clinician Source Performed URINALYSIS 2021-06-02 01:40:00 Rodrigo Perez o f [facility] CT TRAUMA HEAD WO 2021-06-02 01:36:35 Rodrigo Perez [facility] CONTRAST Medical Branch CT TRAUMA THORAX W 2021-06-02 01:36:35 [facility] CT TRAUMA CERVICAL SPINE 2021-06-02 01:36:35 Rodrigo Perez [facility] CONTRAST Medical Branch CT TRAUMA ABDOMEN PELVIS 2021-06-02 01:36:[address] [facility] W CONTRAST [facility] COMP. METABOLIC PANEL 2021-06-02 00:20:00 Rodrigo Perez [facility] ([id number]) [facility] ETHANOL 2021-06-02 00:20:00 Singer [facility] CBC WITH DIFF 2021-06-02 00:20:00 Singer [facility] LACTIC ACID WHOLE BLOOD 2021-06-02 00:19:00 Singer [facility] LIPASE 2021 22:16:00 Kaelyn [facility] COMP. METABOLIC PANEL 2021 22:16:00 Rudi Almanza [facility] ([id number]) [facility] CBC WITH DIFF 2021 22:16:00 [place] [facility] CONSENT/REFUSAL FOR 2021 20:57:14 Doctor Unassigned, No Un [facility] [place] DIAGNOSIS AND TREATMENT Name [facility] SARS-COV-2 COVID-19 2021-03-10 19:21:43 [facility], [facility],IM Name [facility] (PFIZER) TROPONIN I 2021-03-03 22:46:00 Woo Shirin [facility] XR CHEST 1 VW 2021-03-03 20:20:57 Singer [facility] URINE DRUG (IMMUNOASSAY) 2021-03-03 20:16:[address] [facility] - COMPREHENSIVE DRUG Medical [facility] SCREEN W/O REFLEX LIPASE 2021-03-03 19:54:00 Singer [facility] TROPONIN I 2021-03-03 19:54:00 Singer [facility] COMP. METABOLIC PANEL 2021-03-03 19:54:00 Rodrigo Perez [facility] ([id number]) [facility] CBC WITH DIFF 2021-03-03 19:54:00 Singer [facility] PROTHROMBIN TIME / INR 2021-03-03 19:54:00 Rodrigo [facility] ACTIVATED PARTIAL 2021-03-03 19:54:00 Rodrigo Perez [facility] NOTICE OF PRIVACY 2021-03-03 19:35:53 Doctor Unassigned, No Univ [facility] PRACTICES Name [facility] Encounters Start End Encounter Admission Attending Care Care Encounter Source Date/Time Date/Time Type Type Clinicians Facility Department ID 2021-06-01 2021-06-01 Emergency [facility] [id number] Univers 18:08:00 21:22:00 Rodrigo JOSÉ MIGUEL [id number] i ty of [place] 4.2.7.2.686 [facility] [id number] [address] 2021-06-01 2021-06-01 Emergency Rory PEREZ [facility] ERT [id number] Univers 18:08:00 21:22:00 RODRIGO [facility] [place] [facility] 2021 2021 Emergency Rory ALMANZA [facility] ERT [id number] Univers 14:56:00 18:11:00 RUDI [facility] [place] [facility] 2021 2021 Emergency Kaelyn [facility] [id number] Univers 14:56:00 18:11:00 Rudi Nola JOSÉ MIGUEL [id number] i ty [facility] [id number] [facility] [id number] [address] 2021-03-10 2021-03-10 Imm/Inj Nurse, Adc Pob Immunization [facility] [id number] Univers 14:01:36 14:01:53 Visit Ethan Nicolas 350.1.13 .10 ity of [place] 4.2.7.2.686 [facility] Professio [id number] Nv dical [address] Building 2021-03-03 2021-03-03 Emergency Woo [facility] [id number] Univers 14:45:00 19:19:00 Shirin Hamilton [id number] i ty of [place] 4.2.7.2.686 [facility] [id number] [place] [id number] Branch 2021-03-03 2021-03-03 Emergency X [facility] ERT [id number] Univers 14:34:00 14:34:00 [facility] Results Test Description Test Time Test Comments Results Result Comments Source ETHANOL 2021-06-02 01:51:08 Test Item Value Reference Range Interpretation Comme nts ALCOHOL (test code = 2504190580) 58 mg/dL MARIA ESTHER (test code = MARIA ESTHER) <10 [id number] Toxic>100 Depression of SIDE DOOR WORKER>400 [facility] ([id number][facility]2021-06-02 01:50:28 Test Item Value Reference Range Interpretation Comments NA (test code = 139 mmol/L 135-145 5515488055) K (test code = 4.2 mmol/L 3.5-5.0 3868994402) CL (test code = 104 mmol/L 98-108 8674195075) CO2 TOTAL (test code = 25 mmol/L 23-31 2696594490) AGAP (test code = 2-16 6018405712) BUN (test code = 13 mg/dL 7-23 4740531420) GLUCOSE (test code = 102 mg/dL 70-110 3759839743) CREATININE (test code = 0.64 mg/dL 0.60-1.25 5105583115) TOTAL BILI (test code = 0.4 mg/dL 0.1-1.5 4962540330) CALCIUM (test code = 9.8 mg/dL 8.6-10.6 5134477618) T PROTEIN (test code = 8.1 g/dL 6.3-8.2 9022115755) ALBUMIN (test code = 4.7 g/dL 3.5-5.0 6854791089) ALK PHOS (test code = 125 U/L 34-122 H 4871916589) ALTv (test code = 61 U/L 5-50 H 1742-6) AST(SGOT) (test code = 52 U/L 13-40 H 2137325782) eGFR (test code = mL/min/1.73m2 1755229070) MARIA ESTHER (test code = MARIA ESTHER) Association of Glomerular Filtration Rate (GFR) and Staging of Kidney Disease* + --+ --+ ------+| GFR (mL/min/1.73 m2) ?| With Kidney Damage ?| ?Without Kidney Damage+ --------+ --------+ +| ?>90 ?| ?Stage one ?| ? Normal ?+ ---+ ---+ -------+| ?60-89 ?| ?Stage two ?| ? Decreased GFR ? + --+ --+ ------+| ?30-59 ?| ?Stage three ?| ? Stage three ? + --+ --+ ------+| ?15-29 ?| ?Stage four ? | ? Stage four ?+ ---+ ---+ -------+| ?<15 (or dialysis) ? ?| ?Stage five ? | ? Stage five ?+ ---+ ---+ -------+ *Each stage assumes the associated GFR level has been in effect for at least three months. ?Stages 1 to 5, with or without kidney disease, indicate chronic kidney disease. Notes: Determination of stages one and two (with eGFR >59mL/min/1.73 m2) requires estimation of kidney damage for at least three months as defined by structural or functional abnormalities of the kidney, manifested by either:Pathological abnormalities or Markers of kidney damage (including abnormalities in the composition of the blood or urine or abnormalities in imaging tests). Lab Interpretation Abnormal (test code = 90040-6) [facility] WITH [id number] 01:08:45 Test Item Value Reference Range Interpretation Comments WBC (test code = See_Comment [Automated 5223-2) message] The sy stem which generated this result transmitted reference range : 4.20 - 10.70 10*3/?L. The reference range was not used to interpret this result as normal/abnormal . RBC (test code = See_Comment [Automated 163-8) message] The sy stem which generated this result transmitted reference range : 4.26 - 5.52 10*6/?L. The reference range was not used to interpret this result as normal/abnormal . HGB (test code = 14.4 g/dL 12.2-16.4 718-7) HCT (test code = 42.3 % 38.4-49.3 4544-3) MCV (test code = 91.0 fL 81.7-95.6 787-2) MCH (test code = 31.0 pg 26.1-32.7 785-6) MCHC (test code = 34.0 g/dL 31.2-35.0 786-4) RDW-SD (test code = 41.1 fL 38.5-51.6 04525-1) RDW-CV (test code = 12.5 % 12.1-15.4 788-0) PLT (test code = See_Comment [Automated 777-3) message] The sy stem which generated this result transmitted reference range : 150 - 328 10*3/ ?L. The reference r gloria was not used to interpret this result as normal/abnormal . MPV (test code = 11.4 fL 9.8-13.0 04873-0) NRBC/100 WBC (test See_Comment [Automat ed code = 3284698917) message] The system which generated this result transmitted reference range : 0.0 - 10.0 /100 WBCs. The refer ence range was not u sed to interpret th is result as normal/abnormal . NRBC x10^3 (test code <0.01 See_Comment [Auto mated = 4576067690) message] The s ystem which generated this result transmitted reference range : 10*3/?L. The reference range was not used to interpret this result as normal/abnormal . GRAN MAT (NEUT) % 44.2 % (test code = 770-8) IMM GRAN % (test code 1.20 % = 6007971509) LYMPH % (test code = 39.8 % 736-9) MONO % (test code = 11.2 % 5905-5) EOS % (test code = 2.4 % 713-8) BASO % (test code = 1.2 % 706-2) GRAN MAT x10^3(ANC) 3.25 10*3/uL 1.99-6.95 (test code = 3567842205) IMM GRAN x10^3 (test 0.09 10*3/uL 0.00-0.06 H code = 0072160128) LYMPH x10^3 (test code 2.94 10*3/uL 1.09-3.23 = 731-0) MONO x10^3 (test code 0.83 10*3/uL 0.36-1.02 = 742-7) EOS x10^3 (test code = 0.18 10*3/uL 0.06-0.53 711-2) BASO x10^3 (test code 0.09 10*3/uL 0.01-0.09 = 704-7) Lab Interpretation Abnormal (test code = 16822-4) [facility]. METABOLIC PANEL ([id number])2021 23:11:49 Test Item Value Reference Range Interpretation Comments NA (test code = 139 mmol/L 135-145 1493771080) K (test code = 4.4 mmol/L 3.5-5.0 0489908830) CL (test code = 102 mmol/L 98-108 1305886056) CO2 TOTAL (test code = 32 mmol/L 23-31 H 3720284267) AGAP (test code = 2-16 9858106307) BUN (test code = 14 mg/dL 7-23 3465719599) GLUCOSE (test code = 99 mg/dL 70-110 6394160949) CREATININE (test code = 0.65 mg/dL 0.60-1.25 5818511861) TOTAL BILI (test code = 0.4 mg/dL 0.1-1.1 2531142827) CALCIUM (test code = 10.3 mg/dL 8.6-10.6 9490360959) T PROTEIN (test code = 7.9 g/dL 6.3-8.2 1562385320) ALBUMIN (test code = 4.6 g/dL 3.5-5.0 3610745692) ALK PHOS (test code = 130 U/L 34-122 H 7968865430) ALTv (test code = 75 U/L 5-50 H 1742-6) AST(SGOT) (test code = 45 U/L 13-40 H 9726284206) eGFR (test code = mL/min/1.73m2 4748141880) MARIA ESTHER (test code = MARIA ESTHER) Association of Glomerular Filtration Rate (GFR) and Staging of Kidney Disease* + --+ --+ ------+| GFR (mL/min/1.73 m2) ?| With Kidney Damage ?| ?Without Kidney Damage+ --------+ --------+ +| ?>90 ?| ?Stage one ?| ? Normal ?+ ---+ ---+ -------+| ?60-89 ?| ?Stage two ?| ? Decreased GFR ? + --+ --+ ------+| ?30-59 ?| ?Stage three ?| ? Stage three ? + --+ --+ ------+| ?15-29 ?| ?Stage four ? | ? Stage four ?+ ---+ ---+ -------+| ?<15 (or dialysis) ? ?| ?Stage five ? | ? Stage five ?+ ---+ ---+ -------+ *Each stage assumes the associated GFR level has been in effect for at least three months. ?Stages 1 to 5, with or without kidney disease, indicate chronic kidney disease. Notes: Determination of stages one and two (with eGFR >59mL/min/1.73 m2) requires estimation of kidney damage for at least three months as defined by structural or functional abnormalities of the kidney, manifested by either:Pathological abnormalities or Markers of kidney damage (including abnormalities in the composition of the blood or urine or abnormalities in imaging tests). Lab Interpretation Abnormal (test code = 27031-4) [facility] 23:11[facility]29 Test Item Value Reference Range Interpretation Comments LIPASE (test code = 6012400395) 77 U/L 0-220 Lab Interpretation (test code = Normal 22709-7) [facility] WITH [id number] 22:23:21 Test Item Value Reference Range Interpretation Comments WBC (test code = See_Comment [Automated 5099-2) message] The sy stem which generated this result transmitted reference range : 4.20 - 10.70 10*3/?L. The reference range was not used to interpret this result as normal/abnormal . RBC (test code = See_Comment [Automated 333-3) message] The sy stem which generated this result transmitted reference range : 4.26 - 5.52 10*6/?L. The reference range was not used to interpret this result as normal/abnormal . HGB (test code = 14.4 g/dL 12.2-16.4 718-7) HCT (test code = 42.8 % 38.4-49.3 4544-3) MCV (test code = 90.5 fL 81.7-95.6 787-2) MCH (test code = 30.4 pg 26.1-32.7 785-6) MCHC (test code = 33.6 g/dL 31.2-35.0 786-4) RDW-SD (test code = 41.5 fL 38.5-51.6 78508-5) RDW-CV (test code = 12.5 % 12.1-15.4 788-0) PLT (test code = See_Comment [Automated 777-3) message] The sy stem which generated this result transmitted reference range : 150 - 328 10*3/ ?L. The reference r gloria was not used to interpret this result as normal/abnormal . MPV (test code = 10.5 fL 9.8-13.0 46796-5) NRBC/100 WBC (test See_Comment [Automat ed code = 7522649886) message] The system which generated this result transmitted reference range : 0.0 - 10.0 /100 WBCs. The refer ence range was not u sed to interpret th is result as normal/abnormal . NRBC x10^3 (test code <0.01 See_Comment [Auto mated = 9147940478) message] The s ystem which generated this result transmitted reference range : 10*3/?L. The reference range was not used to interpret this result as normal/abnormal . GRAN MAT (NEUT) % 37.4 % (test code = 770-8) IMM GRAN % (test code 0.70 % = 3084763447) LYMPH % (test code = 40.9 % 736-9) MONO % (test code = 13.1 % 5905-5) EOS % (test code = 6.2 % 713-8) BASO % (test code = 1.7 % 706-2) GRAN MAT x10^3(ANC) 3.09 10*3/uL 1.99-6.95 (test code = 1327258670) IMM GRAN x10^3 (test 0.06 10*3/uL 0.00-0.06 code = 8451996410) LYMPH x10^3 (test code 3.38 10*3/uL 1.09-3.23 H = 731-0) MONO x10^3 (test code 1.08 10*3/uL 0.36-1.02 H = 742-7) EOS x10^3 (test code = 0.51 10*3/uL 0.06-0.53 711-2) BASO x10^3 (test code 0.14 10*3/uL 0.01-0.09 H = 704-7) Lab Interpretation Abnormal (test code = 86812-9) [facility] [id number] 23:42:10 Test Item Value Reference Range Interpretation Comments TROPONIN I (test code = 0.001 ng/mL See_Comment [Au tomated 5797521180) message] The sy stem which generated this result transmitted reference range : <=0.034. The reference range was not used to interpret this result as normal/abnormal . MARIA ESTHER (test code = MARIA ESTHER) Lab Interpretation Normal (test code = 42080-7) [facility] - COMPREHENSIVE DRUG SCREEN W/O [id number] 22:17:15 Test Item Value Reference Range Interpretation Comments AMPHET (test code = Presumptive Positive Negative A 4190506161) MINESH U (test code = Negative Negative 6510330168) BENZO U (test code = Negative Negative 6771926157) Cocaine Metabolite (test Negative Negative code = 7325848647) METHADONE (test code = Negative Negative 7580336887) OPIATES (test code = Negative Negative 9389799134) PCP (test code = Negative Negative 3121432633) THC (test code = Presumptive Positive Negative A 6794585896) MARIA ESTHER (test code = MARIA ESTHER) Lab Interpretation (test Abnormal code = 92487-5) [facility] [id number] 20:47:14 Test Item Value Reference Range Interpretation Comments TROPONIN I (test code = 0.001 ng/mL See_Comment [Au tomated 2644426302) message] The sy stem which generated this result transmitted reference range : <=0.034. The reference range was not used to interpret this result as normal/abnormal . MARIA ESTHER (test code = MARIA ESTHER) Lab Interpretation Normal (test code = 01033-6) [facility]OL[facility] (13490)2021-03-03 20:35:48 Test Item Value Reference Range Interpretation Comments NA (test code = 6488828893) 139 mmol/L 135-145 K (test code = 1817808806) 3.9 mmol/L 3.5-5.0 CL (test code = 8737356971) 103 mmol/L 98-108 CO2 TOTAL (test code = 9653409668) 23 mmol/L 23-31 AGAP (test code = 7335596838) 2-16 BUN (test code = 4077629763) 24 mg/dL 7-23 H GLUCOSE (test code = 5850759811) 115 mg/dL 70-110 H CREATININE (test code = 0.81 mg/dL 0.60-1.25 3581382422) TOTAL BILI (test code = 0.5 mg/dL 0.1-1.7 8669290340) CALCIUM (test code = 3740001083) 10.0 mg/dL 8.6-10.6 T PROTEIN (test code = 9211788299) 8.4 g/dL 6.3-8.2 H ALBUMIN (test code = 7980845087) 4.9 g/dL 3.5-5.0 ALK PHOS (test code = 4529022123) 140 U/L 34-122 H ALTv (test code = 1742-6) 59 U/L 5-50 H AST(SGOT) (test code = 9999773696) 40 U/L 13-40 eGFR (test code = 3875370945) mL/min/1.73m2 MARIA ESTHER (test code = MARIA ESTHER) Lab Interpretation (test code = Abnormal 12406-1) [facility], [id number] 20:35:07 Test Item Value Reference Range Interpretation Comments LIPASE (test code = 7113102590) 81 U/L 0-220 Lab Interpretation (test code = Normal 31973-8) [facility]26 Test Item Value Reference Range Interpretation Comments APTT Patient (test code = See_Comment [ Automated message] 0803-2) The system [employer] generated this result transmitted ref erence range: 23 - 38 Seconds. The re ference range was not u sed to interpret this result as normal/abnor mal. MARIA ESTHER (test code = MARIA ESTHER) Lab Interpretation (test Normal code = 36231-7) [facility] / [id number] 20:32:29 Test Item Value Reference Range Interpretation Comments PROTIME PATIENT (test See_Comment [Auto mated message] code = 5964-2) The system wh ich generated this result transmitted ref erence range: 12.0 - 1 4.7 Seconds. The re ference range was not u sed to interpret this result as normal/abnor mal. INR (test code = 6301-6) Lab Interpretation (test Normal code = 51508-0) [facility]CBC WITH [id number] 20:25:44 Test Item Value Reference Range Interpretation Comments WBC (test code = See_Comment [Automated 9790-2) message] The sy stem which generated this result transmitted reference range : 4.20 - 10.70 10*3/?L. The reference range was not used to interpret this result as normal/abnormal . RBC (test code = See_Comment [Automated 609-8) message] The sy stem which generated this result transmitted reference range : 4.26 - 5.52 10*6/?L. The reference range was not used to interpret this result as normal/abnormal . HGB (test code = 14.3 g/dL 12.2-16.4 718-7) HCT (test code = 42.0 % 38.4-49.3 4544-3) MCV (test code = 89.2 fL 81.7-95.6 787-2) MCH (test code = 30.4 pg 26.1-32.7 785-6) MCHC (test code = 34.0 g/dL 31.2-35.0 786-4) RDW-SD (test code = 40.9 fL 38.5-51.6 88450-3) RDW-CV (test code = 12.4 % 12.1-15.4 788-0) PLT (test code = See_Comment [Automated 777-3) message] The sy stem which generated this result transmitted reference range : 150 - 328 10*3/ ?L. The reference r gloria was not used to interpret this result as normal/abnormal . MPV (test code = 10.6 fL 9.8-13.0 96938-7) NRBC/100 WBC (test See_Comment [Automat ed code = 3294291357) message] The system which generated this result transmitted reference range : 0.0 - 10.0 /100 WBCs. The refer ence range was not u sed to interpret th is result as normal/abnormal . NRBC x10^3 (test code <0.01 See_Comment [Auto mated = [id number]) message] The s ystem which generated this result transmitted reference range : 10*3/?L. The reference range was not used to interpret this result as normal/abnormal . GRAN MAT (NEUT) % 51.5 % (test code = 770-8) IMM GRAN % (test code 0.40 % = 8394138540) LYMPH % (test code = 34.3 % 736-9) MONO % (test code = 10.2 % 5905-5) EOS % (test code = 2.4 % 713-8) BASO % (test code = 1.2 % 706-2) GRAN MAT x10^3(ANC) 4.98 10*3/uL 1.99-6.95 (test code = 9108327643) IMM GRAN x10^3 (test 0.04 10*3/uL 0.00-0.06 code = 7604208622) LYMPH x10^3 (test code 3.32 10*3/uL 1.09-3.23 H = 731-0) MONO x10^3 (test code 0.99 10*3/uL 0.36-1.02 = 742-7) EOS x10^3 (test code = 0.23 10*3/uL 0.06-0.53 711-2) BASO x10^3 (test code 0.12 10*3/uL 0.01-0.09 H = 704-7) Lab Interpretation Abnormal (test code = 70423-5) [facility]"
[2022-03-17 11:54] LABS: Absolute Lymphocytes (CBC) 3.4 K/uL (0.7-4.9); Hematocrit 41.3 % (39.6-49.0); Lymphocytes % 46.6 % (15.3-44.8); MCV 88.1 fL (80-100); MPV 9.6 fL (7.6-11.3); RBC Red Blood Cell Count 4.69 M/uL (4.33-5.43)
[2022-03-17 12:13] LABS: Blood Morphology Comment NOT SEEN (NOT SEEN); Platelet Estimate ADEQ
[2022-03-17 12:18] LABS: Albumin 3.9 g/dL (3.4-5.0); Bilirubin Total 0.4 mg/dL (0.2-1.0); Potassium 4.4 mmol/L (3.5-5.1); Protein, Total 7.7 g/dL (6.4-8.2)
--- NOTE | 2022-03-17 12:40 | EDPHYS ---
Physician Documentation [facility] Name: Chang Cr Age: 26 yrs Sex: Male : 1995 Arrival Date: 03/17/2022 Time: 11:00 Bed 20 Private MD: Sandro Tabares HPI: 03/17 11:32 This 26 yrs old Male presents to ER via Ambulatory with complaints of Bloody jl9 Stools x2 years. Patient reports being seen here numerous times in the past for same issue and he plans to see GI but he is waiting on his insurance to activate. Patient reports that he is here only so he dose not lose his job. Patient denies any pain or distress at this time.. 11:32 Onset: The symptoms/episode began/occurred 2 year(s) ago. Associated signs and jl9 symptoms: The patient has no apparent associated signs or symptoms, Pertinent positives:. Modifying factors: The patient symptoms are alleviated by nothing, the patient symptoms are aggravated by nothing. The patient has experienced similar episodes in the past. Historical: - Allergies: 11:11 No Known Allergies; kr3 - PMHx: 11:11 Depression; Hypothyroidism; Lower GI Bleed; kr3 - Immunization history:: Adult Immunizations up to date. - Social history:: Smoking status: Reported history of juuling and/or vaping. ROS: 11:33 Constitutional: Negative for fever, chills, and weight loss, Eyes: Negative for injury, jl9 pain, redness, and discharge, ENT: Negative for injury, pain, and discharge, Neck: Negative for injury, pain, and swelling, Cardiovascular: Negative for chest pain, palpitations, and edema, Respiratory: Negative for shortness of breath, cough, wheezing, and pleuritic chest pain. 11:33 Back: Negative for injury and pain, : Negative for injury, bleeding, discharge, and swelling, MS/Extremity: Negative for injury and deformity, Skin: Negative for injury, rash, and discoloration, Neuro: Negative for headache, weakness, numbness, tingling, and seizure, Psych: Negative for depression, anxiety, suicide ideation, homicidal ideation, and hallucinations, Allergy/Immunology: Negative for hives, rash, and allergies, Endocrine: Negative for neck swelling, polydipsia, polyuria, polyphagia, and marked weight changes, Hematologic/Lymphatic: Negative for swollen nodes, abnormal bleeding, and unusual bruising. 11:33 Abdomen/GI: Positive for rectal bleeding. Exam: 11:34 Constitutional: This is a well developed, well nourished patient who is awake, alert, jl9 and in no acute distress. Head/Face: Normocephalic, atraumatic. Eyes: Pupils equal round and reactive to light, extra-ocular motions intact. Lids and lashes normal. Conjunctiva and sclera are non-icteric and not injected. Cornea within normal limits. Periorbital areas with no swelling, redness, or edema. ENT: Mucous membranes moist. Neck: Trachea midline, no thyromegaly or masses palpated, and no cervical lymphadenopathy. Supple, full range of motion without nuchal rigidity, or vertebral point tenderness. No Meningismus. Chest/axilla: Normal chest wall appearance and motion. Nontender with no deformity. No lesions are appreciated. Cardiovascular: Regular rate and rhythm with a normal S1 and S2. No gallops, murmurs, or rubs. Normal PMI, no JVD. No pulse deficits. Respiratory: Lungs have equal breath sounds bilaterally, clear to auscultation and percussion. No rales, rhonchi or wheezes noted. No increased work of breathing, no retractions or nasal flaring. Abdomen/GI: Soft, non-tender, with normal bowel sounds. No distension or tympany. No guarding or rebound. No evidence of tenderness throughout. Back: No spinal tenderness. No costovertebral tenderness. Full range of motion. Skin: Warm, dry with normal turgor. Normal color with no rashes, no lesions, and no evidence of cellulitis. MS/ Extremity: Pulses equal, no cyanosis. Neurovascular intact. Full, normal range of motion. Neuro: Awake and alert, GCS 15, oriented to person, place, time, and situation. Cranial nerves II-XII grossly intact. Motor strength 5/5 in all extremities. Sensory grossly intact. Cerebellar exam normal. Normal gait. Psych: Awake, alert, with orientation to person, place and time. Behavior, mood, and affect are within normal limits. Vital Signs: 11:09 BP 114 / 75; Pulse 107; Resp 18; Temp 97.9; Pulse Ox 100% on R/A; Weight 93.44 kg; kr3 Height 5 ft. 8 in. (172.72 cm); 12:17 BP 111 / 70; Pulse 67; Resp 18; Pulse Ox 100% ; Pain 0/10; jh6 11:09 Body Mass Index 31.32 (93.44 kg, 172.72 cm) kr3 MDM: 11:09 Patient medically screened. jl9 11:34 Data reviewed: vital signs, nurses notes. jl9 11:34 Data reviewed: old medical records. jl9 12:38 Counseling: I had a detailed discussion with the patient and/or guardian regarding: the jl9 historical points, exam findings, and any diagnostic results supporting the discharge/admit diagnosis, lab results, the need for outpatient follow up, a chief engineer, to return to the emergency department if symptoms worsen or persist or if there are any questions or concerns that arise at home, Patient declines CT scan and occult blood. States he will follow up with GI. . 03/17 11:18 Order name: CBC with Diff; Complete Time: 12:13 9 03/17 11:18 Order name: CMP; Complete Time: 12:38 9 03/17 11:18 Order name: Lipase; Complete Time: 12:38 9 03/17 11:18 Order name: IV Saline Lock; Complete Time: 11:42 9 03/17 12:13 Order name: Manual Differential; Complete Time: 12:13 [facility] 03/17 11:18 Order name: Labs collected and sent; Complete Time: 11:42 jl9 Administered Medications: No medications were administered Disposition Summary: 03/17/22 12:39 Discharge Ordered Location: Home jl9 Condition: Stable jl9 Diagnosis - GI Bleed/ Gastrointestinal hemorrhage, unspecified jl9 Followup: jl9 - With: Private Physician - When: 1 - 2 days - Reason: Recheck today's complaints, Continuance of care, Re-evaluation by your physician Discharge Instructions: - Discharge Summary Sheet jl9 - Rectal Bleeding jl9 Forms: - Medication Reconciliation Form jl9 - Thank You Letter jl9 - Antibiotic Education jl9 - Work release form ph - Prescription Opioid Use jl9 Signatures: Dispatcher [employer] EDIL Kathleen Hood RN RN jh6 Blake Stewart jl9 Ninfa Clark RN RN kr3
--- NOTE | 2022-03-17 12:40 | ER ---
Nurse's Notes [facility] Name: Chang Cr Age: 26 yrs Sex: Male : 1995 Arrival Date: 03/17/2022 Time: 11:00 Bed 20 Private MD: Diagnosis: GI Bleed/ Gastrointestinal hemorrhage, unspecified Presentation: 03/17 11:09 Chief complaint: Patient states: bright red blood in stool this morning. has had the kr3 same situation going on for 2 years on and off. Coronavirus screen: Vaccine status: Patient reports receiving the 2nd dose of the covid vaccine. Client denies travel out of the [place] in the last 14 days. Ebola Screen: Patient denies travel to an Ebola-affected area in the 21 days before illness onset. Initial Sepsis Screen: Does the patient meet any 2 criteria? No. Patient's initial sepsis screen is negative. Does the patient have a suspected source of infection? Yes: Acute abdominal pain. Risk Assessment: Do you want to hurt yourself or someone else? Patient reports no desire to harm self or others. Onset of symptoms was March 17, 2022. 11:09 Method Of Arrival: Ambulatory kr3 11:09 Acuity: PAO 3 kr3 Triage Assessment: 11:12 General: Appears in no apparent distress. comfortable, Behavior is calm, cooperative, kr3 appropriate for age. Pain: Complains of pain in abdomen Pain currently is 5 out of 10 on a pain scale. Historical: - Allergies: 11:11 No Known Allergies; kr3 - PMHx: 11:11 Depression; Hypothyroidism; Lower GI Bleed; kr3 - Immunization history:: Adult Immunizations up to date. - Social history:: Smoking status: Reported history of juuling and/or vaping. Screenin:30 Abuse screen: Denies threats or abuse. Denies injuries from another. Nutritional jh6 screening: No deficits noted. Tuberculosis screening: No symptoms or risk factors identified. Fall Risk IV access (20 points). Assessment: 11:30 General: Appears in no apparent distress. uncomfortable, Behavior is calm, cooperative. jh6 11:30 GI: Reports bloody stool, pt states that he has had blood in his stool off and on x jh6 2years. states that l abd pain over the last couple of days. 12:15 General: x ray at bedside, ice on left leg. . 6 12:57 Reassessment: No changes from previously documented assessment. Patient and/or family 6 updated on plan of care and expected duration. Pain level reassessed. no episodes of bloody stools or pain while waiting. verbal understanding of d.c follow up needed. Patient denies pain at this time. Vital Signs: 11:09 BP 114 / 75; Pulse 107; Resp 18; Temp 97.9; Pulse Ox 100% on R/A; Weight 93.44 kg; 3 Height 5 ft. 8 in. (172.72 cm); 12:17 BP 111 / 70; Pulse 67; Resp 18; Pulse Ox 100% ; Pain 0/10; jh6 11:09 Body Mass Index 31.32 (93.44 kg, 172.72 cm) 3 ED Course: 11:00 Patient arrived in ED. rg4 11:04 Arm band placed on right wrist. Patient placed in an exam room, on a stretcher. 3 11:09 [facility] 9 11:09 Sandro Rogers MD is Attending Physician. 9 11:11 Triage completed. kr3 11:21 Kathleen Hood, RN is Primary Nurse. 6 11:30 Bed in low position. Call light in reach. Side rails up X 1. 6 11:40 No provider procedures requiring assistance completed. Inserted saline lock: 20 gauge 6 in right antecubital area, using aseptic technique. Blood collected. 11:42 CBC with Diff Sent. 6 11:42 CMP Sent. 6 11:42 Lipase Sent. 6 12:57 IV discontinued, intact, bleeding controlled, No redness/swelling at site. Pressure 6 dressing applied. Administered Medications: No medications were administered Medication: 11:30 VIS not applicable for this client. 6 Outcome: 12:15 Discharged to [facility] 12:39 Discharge ordered by . 9 12:57 Discharged to home ambulatory. 6 12:57 Condition: good 12:57 Discharge instructions given to patient, Instructed on follow up and referral plans. Demonstrated understanding of instructions. 12:58 Patient left the ED. [facility] Signatures: Larissa Birmingham 4 Kathleen Hood, RN RN [facility] Blake Stewart 9 Eduardo, Ninfa, RN RN kr3 Corrections: (The following items were deleted from the chart) 11:13 11:12 Arm band placed on right wrist. Patient placed in an exam room, on a stretcher, tae bobo3
[2022-03-17 13:52] VITALS: TEMP 97.9; O2SAT 100
[2022-03-17 13:54] VITALS: BP 111/70
== END 2022-03-17 12:58 | disposition home or self-care (01) ==
LOC: ER 10:57
DX: K92.2 Gastrointestinal hemorrhage, unspecified (principal)
CPT/HCPCS: 36415; 80053; 83690; 85025; 99283

== ENCOUNTER 2023-05-28 07:36 | Observation (INO) | payer SELFPAY ==
--- OUTSIDE RECORDS SUMMARY | 2023-05-28 07:39 | XMS REPORT | Continuity of Care Document ---
:[address] [facility] t Address [address] [facility] [place] [address] Care Team Providers Name Role Phone BEATRIZ JOHNSON Primary Care Physician Unavailable RAMIREZ DIAL Attending Clinician Unavailable SHELLY TYSON Attending Clinician Unavailable Gurpreet Payne Attending Clinician Shelly Tyson MD Attending Clinician [phone] Rodrigo Perez DO Attending Clinician RODRIGO PEREZ Attending Clinician Unavailable RUDI ALMANZA Attending Clinician Unavailable Rudi Weir Attending Clinician Nurse, Adc Pob Immunization Attending Clinician Unavailable Ethan Nicolas DO Attending Clinician Shirin Arias Attending Clinician RAMIREZ DIAL Admitting Clinician Unavailable Gurpreet JONES Admitting Clinician Unavailable RODRIGO PEREZ Admitting Clinician Unavailable Payers Payer Name Policy Type Policy Number Effective Date Expiration Date S ource SELF-PAY CI [id number] ENTRUST [id number] 2022 00:00:00 TSHBP 90 DEGREES [id number] 2022 2022 00:00:00 00:00:00 Problems Condition Condition Condition Status Onset Resolution Last Treating Co mments Source Name Details Category Date Date Treatment Clinician Date No known No known Disease Unive rs active active ity of problems problems [facility] Allergies, Adverse Reactions, Alerts Allergy Allergy Status Severity Reaction(s) Onset Inactive Treating Comm ents Source Name Type Date Date Clinician NO KNOWN Drug Active Univers ALLERGIE Class ity of S [facility] Social History Social Habit Start Date Stop Date Quantity Comments Source [facility] Exposure to 2022-09-06 2022-09-16 Not sure [facility] SARS-CoV-2 (event) 00:00:00 18:42:00 Medica l Branch Sex Assigned At [birth year] [facility] 00:00:00 00:00:00 [facility] Smoking Status Start Date Stop Date Source Tobacco smoking consumption Univ [facility] Medications Ordered Filled Start Stop Current Ordering Indication Dosage Frequency Signature Comments Components Source Medication Medication Date Date Medication? Clinician (SIG) Name Name iopamidol 2022-07- No [id number] 70mL 70 mL, Univers (ISOVUE 07-15 Intravenou ity o f 370-500 mL) 16:36: 16:35 s, ONCE, 1 [place] injection 00 :00 dose, On Medica l 70 mL Wed Branch 05/15/23 at 1045, Routine NaCl 0.9% 2022-07 No 1000mL at 999 Uni vers (NS) bolus 07-15 mL/hr, ity of infusion 15:00: 15:30 1,000 mL, Adelfo as 1,000 mL 00 :00 IV Medical Infusion, Branch ONCE, 1 dose, On Sat05/15/23 at 0900, [place] famotidine 2022-07 No 20mg 20 mg, Univ ers (PEPCID 07-15 Slow IV ity of (PF)) 14:45: 14:51 Push, [place] injection 00 :00 ONCE, 1 Medical 20 mg dose, On Branch Sat05/15/23 at 0845, [place] maalox:diph 2022-07 No 15mL 15 mL, Uni vers enhydrAMINE 07-15 Oral, ity of :lidocaine 14:45: 14:51 ONCE, 1 Adelfo as 2 % viscous 00 :00 dose, On [facility] maite 1:1:1 [facility] Branch (FIRST-MOUT 05/15/23 at [facility]) 0845, oral Routine suspension 15 mL ondansetron 2022-07- No 4mg 4 mg, Slow Univers (ZOFRAN 07-15 IV Push, ity of (PF)) 14:30: 14:24 ONCE, 1 [place] injection 4 00 :00 dose, On Medi maite mg Wed Branch 05/15/23 at 0830, [place] pantoprazol 2022-07- Yes [id number] 40mg Take 1 Univers e 40 mg EC 07-15 tablet by ity of tablet 00:00: 05:59 mouth in [place] 00 :00 the Medical morning Branch for 30 days. maalox:diph No 15mL 15 mL, Uni vers enhydrAMINE 09-17 Oral, ity of :lidocaine 00:00: 01:06 ONCE, 1 Adelfo as 2 % viscous 00 :00 dose, On [facility] maite 1:1:1 [place] Branch (FIRST-MOUT 09/16/22 at [facility]) 1900, oral Routine suspension 15 mL famotidine No 20mg 20 mg, Univ ers (PEPCID 09-17 Slow IV ity of (PF)) 00:00: 01:06 Push, [place] injection 00 :00 ONCE, 1 Medical 20 mg dose, On Branch [place] 09/16/22 at 1900, [place] iopamidol 2020-07- No [id number] 120mL 120 mL, Univers (ISOVUE 08-02- Intravenou ity o f 370-500 mL) 02:45: 02:45 s, ONCE, 1 [place] injection 00 :00 dose, On Medica l 120 mL [place] Branch 06/01/21 at 2045, Routine NaCl 0.9% 2020-07- No 1000mL at 999 Uni vers (NS) bolus 08-02 11-26 mL/hr, ity of infusion 00:15: 02:36 1,000 mL, Adelfo as 1,000 mL 00 :00 IV Medical Infusion, Branch ONCE, 1 dose, On [place] 06/01/21 at 1815, STAT ondansetron 2020-07- No 4mg 4 mg, Slow Univers (ZOFRAN 08-02 IV Push, ity of (PF)) 00:15: 00:26 ONCE, 1 [place] injection 4 00 :00 dose, On Medi maite mg [place] Branch 06/01/21 at 1815, Routine FENTanyl PF 2020-07- No 50ug 50 mcg, Un shagufta (SUBLIMAZE 08-02 Slow IV ity o f (PF)) 00:15: 00:26 Push, [place] injection 00 :00 ONCE, 1 Medical 50 mcg dose, On Branch [place] 06/01/21 at 1815, Routine ibuprofen 2020-07 Yes [id number] 800mg Take 1 U nivers 800 mg 1-25 tablet by ity of tablet 00:00: mouth [place] 00 every 8 Medical (eight) Branch hours as needed for Pain (scale 4-6). ibuprofen 2020-07 Yes [id number] 800mg Take 1 U nivers 800 mg 1-25 tablet by ity of tablet 00:00: mouth [place] 00 every 8 Medical (eight) Branch hours as needed for Pain (scale 4-6). ibuprofen 2020-07 Yes [id number] 800mg Take 1 U nivers 800 mg 1-25 tablet by ity of tablet 00:00: mouth [place] 00 every 8 Medical (eight) Branch hours as needed for Pain (scale 4-6). hyoscyamine 2020-07 Yes [id number] .125mg Take 1 Univers 0.125 mg 1-11 tablet by ity of tablet 00:00: mouth (four) Medical times Branch daily as needed (abdominal cramping). hyoscyamine 2020-07 Yes [id number] .125mg Take 1 Univers 0.125 mg 1-11 tablet by ity of tablet 00:00: mouth (four) Medical times Branch daily as needed (abdominal cramping). hyoscyamine 2020-07 Yes [id number] .125mg Take 1 Univers 0.125 mg 1-11 tablet by ity of tablet 00:00: mouth 00 (four) Medical times Branch daily as needed (abdominal cramping). hyoscyamine 2020-07 Yes [id number] .125mg Take 1 Univers 0.125 mg 1-11 tablet by ity of tablet 00:00: mouth 4 [place] 00 (four) Medical times Branch daily as needed (abdominal cramping). hyoscyamine 2020-07- No [id number] .125mg Take 1 Univers 0.125 mg 1-11 11-11 tablet by ity o f tablet [...] mg 00 :00 ONCE, 1 Medical dose, Fri Branch 03/03/21 at 1715, Routine
choir member approving Restricted medication : SHIRIN BERKOWITZ ondansetron [...] Yes 4mg Take 1 Tab Univers (ZOFRAN 01-13 by mouth 4 ity of ODT) 4 mg 00:00: (four) [place] disintegrat 00 times Medical ing tablet daily as Branc h needed for Nausea and Vomiting (N/V). ondansetron 2015-0 Yes 4mg Take 1 Tab Univers (ZOFRAN 01-13 by mouth 4 ity of ODT) 4 mg 00:00: (four) [place] disintegrat 00 times Medical ing tablet daily as Branc h needed for Nausea and Vomiting (N/V). Immunizations Ordered Filled Date Status Comments Source Immunization Name Immunization Name SARS-COV-2 COVID-19 2021-03-10 Completed Unive rsity of PFIZER VACCINE 00:00:00 [facility] SARS-COV-2 COVID-19 2021-03-10 Completed Unive rsity of PFIZER VACCINE 00:00:00 [facility] SARS-COV-2 COVID-19 2021-03-10 Completed Unive rsity of PFIZER VACCINE 00:00:00 [facility] SARS-COV-2 COVID-19 2021-03-10 Completed Unive rsity of PFIZER VACCINE 00:00:00 [facility] SARS-COV-2 COVID-19 2021-02-19 Completed Unive rsity of PFIZER VACCINE 00:00:00 [facility] SARS-COV-2 COVID-19 2021-02-19 Completed Unive rsity of PFIZER VACCINE 00:00:00 [facility] SARS-COV-2 COVID-19 2021-02-19 Completed Unive rsity of PFIZER VACCINE 00:00:00 [facility] SARS-COV-2 COVID-19 2021-02-19 Completed Unive rsity of PFIZER VACCINE 00:00:00 [facility] SARS-COV-2 COVID-19 2021-02-19 Completed Unive rsity of PFIZER VACCINE 00:00:00 [facility] SARS-COV-2 COVID-19 Unknown Completed Unive rsity of PFIZER VACCINE [facility] SARS-COV-2 COVID-19 Unknown Completed Unive rsity of PFIZER VACCINE [facility] Vital Signs Vital Name Observation Time Observation Value Comments Source Systolic blood 2023-05-15 17:28:59 116 mm[Hg] Univer sity of pressure [place] [facility] Diastolic blood 2023-05-15 17:28:59 77 mm[Hg] Unive rsity of pressure [place] [facility] Heart rate 2023-05-15 17:28:59 69 /min [facility] [place] [facility] Body temperature 2023-05-15 17:28:59 37 María Univ ers[facility] [place] [facility] Respiratory rate 2023-05-15 17:28:59 18 /min Univ [facility] [place] [facility] Oxygen saturation in 2023-05-15 17:28:59 98 /min University of Arterial blood by [place] [facility] maite Pulse oximetry Branch Systolic blood 2022-09-16 23:43:00 156 mm[Hg] Univer sity of pressure [place] [facility] Diastolic blood 2022-09-16 23:43:00 98 mm[Hg] Unive rsity of pressure [place] [facility] Heart rate 2022-09-16 23:43:00 69 /min [facility]i [facility] [place] [facility] Body temperature 2022-09-16 23:43:00 36.67 María [facility] [place] [facility] Respiratory rate 2022-09-16 23:43:00 18 /min [facility] [place] [facility] Body weight 2022-09-16 23:43:00 92.987 kg [facility] [place] [facility] BMI 2022-09-16 23:43:00 31.17 kg/m2 [facility] [place] [facility] Oxygen saturation in 2022-09-16 23:43:00 100 /min University of Arterial blood by [place] [facility] Pulse oximetry Branch Systolic blood 2021-06-02 02:00:00 130 mm[Hg] Univer sity of pressure [place] [facility] Diastolic blood 2021-06-02 02:00:00 90 mm[Hg] Unive rsity of pressure [place] [facility] Heart rate 2021-06-02 02:00:00 96 /min [facility] [place] [facility] Body temperature 2021-06-02 02:00:00 36 María [facility] [place] [facility] Respiratory rate 2021-06-02 02:00:00 13 /min [facility] [place] [facility] Oxygen saturation in 2021-06-02 02:00:00 100 /min University of Arterial blood by [facility] maite Pulse oximetry Branch Body height 2021-06-02 00:19:00 172.7 cm [facility] [place] [facility] Body weight 2021-06-02 00:19:00 82.555 kg [facility] [place] [facility] BMI 2021-06-02 00:19:00 27.67 kg/m2 [facility] [place] [facility] Systolic blood 2021 21:11:00 132 mm[Hg] Univer sity of pressure [place] [facility] Diastolic blood 2021 21:11:00 76 mm[Hg] Unive rsity of pressure [place] [facility] Heart rate 2021 21:11:00 84 /min [facility] [place] [facility] Body temperature 2021 21:11:00 37.72 María [facility] [place] [facility] Respiratory rate 2021 21:11:00 18 /min Univ [facility] [place] [facility] Body weight 2021 21:11:00 82.101 kg [facility] [place] [facility] BMI 2021 21:11:00 27.52 kg/m2 [facility] [place] [facility] Oxygen saturation in 2021 21:11:00 97 /min University of Arterial blood by [facility] Pulse oximetry Branch Systolic blood 2021-03-04 00:00:00 124 mm[Hg] Univer sity of pressure [place] [facility] Diastolic blood 2021-03-04 00:00:00 83 mm[Hg] Unive rsity of pressure [place] [facility] Heart rate 2021-03-04 00:00:00 82 /min [facility] [place] [facility] Body temperature 2021-03-04 00:00:00 36.39 María Univ [facility] [place] [facility] Respiratory rate 2021-03-04 00:00:00 17 /min Univ ers[facility] [place] [facility] Oxygen saturation in 2021-03-04 00:00:00 100 /min University of Arterial blood by [facility] Pulse oximetry Branch Body height 2021-03-03 19:44:00 172.7 cm [facility] [place] [facility] Body weight 2021-03-03 19:44:00 79.379 kg [facility] [place] [facility] BMI 2021-03-03 19:44:00 26.61 kg/m2 [facility] Procedures Procedure Date / Time Performing Clinician Source Performed CT ABDOMEN PELVIS W 2023-05-15 16:39:00 Ramirez Dial [facility] CONTRAST [facility] URINALYSIS 2023-05-15 15:41[facility]00 [facility]23-[facility]-15 14:21[facility]00 [facility] METABOLIC PANEL 2023-05-15 14:21:00 Ramirez Dial [facility] ([id number]) [facility] Branch CBC WITH DIFF 2023-05-15 14:[facility] 2023-05-15 13:51:38 Doctor Unassigned, No [facility] Name Medical Branch US GALL BLADDER 2022-09-17 00:53:52 Gurpreet Jones Angela [facility] LIPASE 2022-09-17 00:16:00 Mark [facility] MAGNESIUM 2022-09-17 00:16:00 Gurpreet Jones [facility] COMP. METABOLIC PANEL 2022-09-17 00:16:00 Gurpreet Jones [facility] ([id number]) [facility] CBC WITH DIFF 2022-09-17 00:16:00 Gurpreet Jones Angela [facility] URINALYSIS 2022-09-17 00:16:00 Gurpreet Jones [facility] CONSENT/REFUSAL FOR 2022-09-16 23:08:02 Doctor Unassigned, No [facility] Name Medical Branch URINALYSIS 2021-06-02 01:40:00 Rodrigo Perez [facility] CT TRAUMA HEAD WO 2021-06-02 01:36:35 Rodrigo Perez [facility] CT TRAUMA THORAX W 2021-06-02 01:36:35 Rodrigo Perez [facility] CONTRAST [facility] CT TRAUMA CERVICAL SPINE 2021-06-02 01:36:35 Rodrigo Perez [facility] WO CONTRAST [facility] CT TRAUMA ABDOMEN PELVIS 2021-06-02 01:36:35 Rodrigo Perez [facility] W CONTRAST [facility] COMP. METABOLIC PANEL 2021-06-02 00:20:00 Rodrigo Perez [facility] ([id number]) Medical Branch ETHANOL 2021-06-02 00:20:00 Singer [facility] CBC WITH DIFF 2021-06-02 00:20:00 Singer [facility] LACTIC ACID WHOLE BLOOD 2021-06-02 00:19:00 Singer [facility] LIPASE 2021 22:16:00 Rudi Almanza [facility] COMP. METABOLIC PANEL 2021 22:16:00 Rudi Almanza [facility] ([id number]) [facility] CBC WITH DIFF 2021 22:16:00 Rudi Almanza [facility] CONSENT/REFUSAL FOR 2021 20:57:14 Doctor Unassigned, No Un [facility] [place] DIAGNOSIS AND TREATMENT Name [facility] SARS-COV-2 COVID-19 2021-03-10 19:21:43 Doctor Unassigned, No Un [facility] [place] VACCINE,0.3ML,IM Name [facility] (PFIZER) TROPONIN I 2021-03-03 22:46:00 Woo Shiirn [facility] XR CHEST 1 VW 2021-03-03 20:20:57 Singer [facility] URINE DRUG (IMMUNOASSAY) 2021-03-03 20:16:00 Shirin Berkowitz [facility] - COMPREHENSIVE DRUG Medical [facility] nc SCREEN W/O REFLEX LIPASE 2021-03-03 19:54:00 Singer [facility] TROPONIN I 2021-03-03 19:54:00 Singer [facility] COMP. METABOLIC PANEL 2021-03-03 19:54:00 [id number] CBC WITH DIFF 2021-03-03 19:54:00 Singer [facility] PROTHROMBIN TIME / INR 2021-03-03 19:54:00 [facility] 2021-03-03 19:54:00 Rodrigo Perez [facility] NOTICE OF PRIVACY 2021-03-03 19:35:53 Doctor Unassigned, No Univ [facility] PRACTICES Name Medical Branch Encounters Start End Encounter Admission Attending Care Care Encounter Source Date/Time Date/Time Type Type Clinicians Facility Department ID 2022-10-27 Outpatient IBNS IBNS [id number] [place] 20:16:18 [id number] [facility] 2022-10-27 Outpatient IBNS IBNS [id number] [place] 17:24:48 [id number] [facility] 2023-05-15 2023-05-15 Emergency X YOJANA [facility] ERT [id number] Univers 07:57:00 11:36:00 RAMIREZ mata [facility] [place] 2023-05-15 2023-05-15 Emergency [facility] [id number] Univers 07:57:00 11:36:00 Ramirez VALDEZ [id number] i ty of [place] [id number] [facility] [id number] [address] 2022-09-16 2022-09-16 Emergency X AUFDERHEIDE [facility] ERT [id number] Univers 18:44:00 20:58:00 , SHELLY iteloisa of [facility] 2022-09-16 2022-09-16 Emergency Gurpreet Jones [facility] 1.2.840. [id number] Univers 18:44:00 20:58:00 AufderHarry angin Maritza VALDEZ 350.1 .13.10 ity [facility] [id number] [facility] [id number] [address] 2021-06-01 2021-06-01 Emergency [facility] [id number] Univers 18:08:00 21:22:00 Rodrigo VALDEZ 350.1.13.10 i ty of [facility] 4.2.7.2.686 [facility] [id number] [address] 2021-06-01 2021-06-01 Emergency X SINGER [facility] ERT [id number] Univers 18:08:00 21:22:00 RODRIGO eloisa [facility] [place] 2021 2021 Emergency [facility] [id number] Univers 14:56:00 18:11:00 RUDI eloisa [facility] [place] 2021 2021 Emergency [facility] [id number] Univers 14:56:00 18:11:00 Rudi VALDEZ 350.1.13.10 i ty of [place] [id number] [facility] [id number] [address] 2021-03-10 2021-03-10 Imm/Inj Nurse, Adc Pob Immunization [facility] [id number] Univers 14:01:36 14:01:53 Visit Ethan Nicolas 350.1.13 .10 ity of [place] 4.2.7.2[address] [facility] Professio [id number] [place] dical nal [address] [facility] 2021-03-03 2021-03-03 Emergency [facility] [id number] Univers 14:45:00 19:19:00 Shirin Joy 350.1.13.10 i ty of [place] 4.2.7.2.686 [facility] [id number] [address] 2021-03-03 2021-03-03 Emergency X [facility] ERT [id number] Univers 14:34:00 14:34:00 [facility] Results Test Description Test Time Test Comments Results Result Comments Source ETHANOL 2021-06-02 01:51:08 Test Item Value Reference Range Interpretation Comme nts ALCOHOL (test code = 8295440660) 58 mg/dL MARIA ESTHER (test code = MARIA ESTHER) <10 Owpdefol45-016 Toxic>100 Depression of GOVERNMENT PROGRAM MANAGER>400 [id number]2021-06-02 01:50:28 Test Item Value Reference Range Interpretation Comments NA (test code = 139 mmol/L 135-145 8405144693) K (test code = 4.2 mmol/L 3.5-5.0 7591117794) CL (test code = 104 mmol/L 98-108 3232491842) CO2 TOTAL (test code = 25 mmol/L 23-31 9334997064) AGAP (test code = 2-16 1156072470) BUN (test code = 13 mg/dL 7-23 8395591948) GLUCOSE (test code = 102 mg/dL 70-110 0894989349) CREATININE (test code = 0.64 mg/dL 0.60-1.25 3506142165) TOTAL BILI (test code = 0.4 mg/dL 0.1-1.7 7762697007) CALCIUM (test code = 9.8 mg/dL 8.6-10.6 3046104049) T PROTEIN (test code = 8.1 g/dL 6.3-8.2 5111218161) ALBUMIN (test code = 4.7 g/dL 3.5-5.0 1333696059) ALK PHOS (test code = 125 U/L 34-122 H 6673922743) ALTv (test code = 61 U/L 5-50 H 1742-6) AST(SGOT) (test code = 52 U/L 13-40 H 2677472921) eGFR (test code = mL/min/1.73m2 5470836517) MARIA ESTHER (test code = MARIA ESTHER) [...] tests). Lab Interpretation Abnormal (test code = 58946-1) [facility] WITH [id number] 01:08:45 Test Item Value Reference Range Interpretation Comments WBC (test code = See_Comment [Automated 4806-2) message] The sy stem which generated this result transmitted reference range : 4.20 - 10.70 10*3/?L. The reference range was not used to interpret this result as normal/abnormal . RBC (test code = See_Comment [Automated 912-8) message] The sy stem which generated this [...] RDW-SD (test code = 41.1 fL 38.5-51.6 33346-5) RDW-CV (test code = 12.5 % 12.1-15.4 788-0) PLT (test code = See_Comment [Automated 017-3) message] The sy stem which generated this result transmitted reference range : 150 - 328 10*3/ ?L. The reference r gloria was not used to interpret this result as normal/abnormal . MPV (test code = 11.4 fL 9.8-13.0 69427-1) NRBC/100 WBC (test See_Comment [Automat ed code = 0897571708) message] The system which generated this result transmitted reference range : 0.0 - 10.0 /100 WBCs. The refer ence range was not u sed to interpret th is result as normal/abnormal . NRBC x10^3 (test code <0.01 See_Comment [Auto mated = 1026658389) message] The s ystem which generated this result transmitted reference range : 10*3/?L. The reference range was not used to interpret this result as normal/abnormal . GRAN MAT (NEUT) % 44.2 % (test code = 770-8) IMM GRAN % (test code 1.20 % = 2862412864) LYMPH % (test code = 39.8 % 736-9) MONO % (test code = 11.2 % 5905-5) EOS % (test code = 2.4 % 713-8) BASO % (test code = 1.2 % 706-2) GRAN MAT x10^3(ANC) 3.25 10*3/uL 1.99-6.95 (test code = 1180552691) IMM GRAN x10^3 (test 0.09 10*3/uL 0.00-0.06 H code = 6738993259) LYMPH x10^3 (test code 2.94 10*3/uL 1.09-3.23 = 731-0) MONO x10^3 (test code 0.83 10*3/uL 0.36-1.02 = 742-7) EOS x10^3 (test code = 0.18 10*3/uL 0.06-0.53 711-2) BASO x10^3 (test code 0.09 10*3/uL 0.01-0.09 = 704-7) Lab Interpretation Abnormal (test code = 18403-2) [facility]. METABOLIC PANEL ([id number])2021 23:11:49 Test Item Value Reference Range Interpretation Comments NA (test code = 139 mmol/L 135-145 4808295839) K (test code = 4.4 mmol/L 3.5-5.0 7231338616) CL (test code = 102 mmol/L 98-108 2925735410) CO2 TOTAL (test code = 32 mmol/L 23-31 H 0856784383) AGAP (test code = 2-16 7283824659) BUN (test code = 14 mg/dL 7-23 0877686318) GLUCOSE (test code = 99 mg/dL 70-110 8519905768) CREATININE (test code = 0.65 mg/dL 0.60-1.25 2762481786) TOTAL BILI (test code = 0.4 mg/dL 0.1-1.3 9830464629) CALCIUM (test code = 10.3 mg/dL 8.6-10.6 1557470572) T PROTEIN (test code = 7.9 g/dL 6.3-8.2 9372517058) ALBUMIN (test code = 4.6 g/dL 3.5-5.0 3615950377) ALK PHOS (test code = 130 U/L 34-122 H 6570449871) ALTv (test code = 75 U/L 5-50 H 1742-6) AST(SGOT) (test code = 45 U/L 13-40 H 2950084857) eGFR (test code = mL/min/1.73m2 5588602533) MARIA ESTHER (test code = MARIA ESTHER) [...] tests). Lab Interpretation Abnormal (test code = 85845-6) [facility]29 Test Item Value Reference Range Interpretation Comments LIPASE (test code = 2109014731) 77 U/L 0-220 Lab Interpretation (test code = Normal 70580-4) [facility] [id number] 22:23:21 Test Item Value Reference Range Interpretation Comments WBC (test code = See_Comment [Automated 0990-2) message] The sy stem which generated this result transmitted reference range : 4.20 - 10.70 10*3/?L. The reference range was not used to interpret this result as normal/abnormal . RBC (test code = See_Comment [Automated 059-8) message] The sy stem which generated this [...] RDW-SD (test code = 41.5 fL 38.5-51.6 46991-7) RDW-CV (test code = 12.5 % 12.1-15.4 788-0) PLT (test code = See_Comment [Automated 997-3) message] The sy stem which generated this result transmitted reference range : 150 - 328 10*3/ ?L. The reference r gloria was not used to interpret this result as normal/abnormal . MPV (test code = 10.5 fL 9.8-13.0 15849-5) NRBC/100 WBC (test See_Comment [Automat ed code = 6824824197) message] The system which generated this result transmitted reference range : 0.0 - 10.0 /100 WBCs. The refer ence range was not u sed to interpret th is result as normal/abnormal . NRBC x10^3 (test code <0.01 See_Comment [Auto mated = 2811316127) message] The s ystem which generated this result transmitted reference range : 10*3/?L. The reference range was not used to interpret this result as normal/abnormal . GRAN MAT (NEUT) % 37.4 % (test code = 770-8) IMM GRAN % (test code 0.70 % = 1189020242) LYMPH % (test code = 40.9 % 736-9) MONO % (test code = 13.1 % 5905-5) EOS % (test code = 6.2 % 713-8) BASO % (test code = 1.7 % 706-2) GRAN MAT x10^3(ANC) 3.09 10*3/uL 1.99-6.95 (test code = 4064867693) IMM GRAN x10^3 (test 0.06 10*3/uL 0.00-0.06 code = 2867242482) LYMPH x10^3 (test code 3.38 10*3/uL 1.09-3.23 H = 731-0) MONO x10^3 (test code 1.08 10*3/uL 0.36-1.02 H = 742-7) EOS x10^3 (test code = 0.51 10*3/uL 0.06-0.53 711-2) BASO x10^3 (test code 0.14 10*3/uL 0.01-0.09 H = 704-7) Lab Interpretation Abnormal (test code = 23410-9) [facility]HOANG [id number] 23:42:10 Test Item Value Reference Range Interpretation Comments TROPONIN I (test code = 0.001 ng/mL See_Comment [Au tomated 8470232797) message] The sy stem which generated this result transmitted reference range : <=0.034. The reference range was not used to interpret this result as normal/abnormal . MARIA ESTHER (test code = MARIA ESTHER) Lab Interpretation Normal (test code = 13420-4) [facility] (IMMUNOASSAY) - COMPREHENSIVE DRUG SCREEN W/O [id number] 22:17:15 Test Item Value Reference Range Interpretation Comments AMPHET (test code = Presumptive Positive Negative A 2193447042) MINESH U (test code = Negative Negative 6065451403) BENZO U (test code = Negative Negative 5844211846) Cocaine Metabolite (test Negative Negative code = 8569247823) METHADONE (test code = Negative Negative 9096073566) OPIATES (test code = Negative Negative 7688259583) PCP (test code = Negative Negative 2485665450) THC (test code = Presumptive Positive Negative A 4163258363) MARIA ESTHER (test code = MARIA ESTHER) Lab Interpretation (test Abnormal code = 45427-0) [facility]TR[facility] [id number] 20:47:14 Test Item Value Reference Range Interpretation Comments TROPONIN I (test code = 0.001 ng/mL See_Comment [Au tomated 9465560215) message] The sy stem which generated this result transmitted reference range : <=0.034. The reference range was not used to interpret this result as normal/abnormal . MARIA ESTHER (test code = MARIA ESTHER) Lab Interpretation Normal (test code = 67410-2) [facility]COMP[facility] METABOLIC PANEL ([id number] 20:35:48 Test Item Value Reference Range Interpretation Comments NA (test code = 2894159387) 139 mmol/L 135-145 K (test code = 6897571017) 3.9 mmol/L 3.5-5.0 CL (test code = 0411017227) 103 mmol/L 98-108 CO2 TOTAL (test code = 7447340861) 23 mmol/L 23-31 AGAP (test code = 9276018196) 2-16 BUN (test code = 2373220035) 24 mg/dL 7-23 H GLUCOSE (test code = 7945420663) 115 mg/dL 70-110 H CREATININE (test code = 0.81 mg/dL 0.60-1.25 7722728141) TOTAL BILI (test code = 0.5 mg/dL 0.1-1.8 7128270008) CALCIUM (test code = 6837067689) 10.0 mg/dL 8.6-10.6 T PROTEIN (test code = 9289441774) 8.4 g/dL 6.3-8.2 H ALBUMIN (test code = 6436198453) 4.9 g/dL 3.5-5.0 ALK PHOS (test code = 0245122604) 140 U/L 34-122 H ALTv (test code = 1742-6) 59 U/L 5-50 H AST(SGOT) (test code = 9982412144) 40 U/L 13-40 eGFR (test code = 3381284907) mL/min/1.73m2 MARIA ESTHER (test code = MARIA ESTHER) Lab Interpretation (test code = Abnormal 80069-2) [facility] HospitalLIPASE, [id number] 20:35:07 Test Item Value Reference Range Interpretation Comments LIPASE (test code = 3478049212) 81 U/L 0-220 Lab Interpretation (test code = Normal 96838-4) [facility] HospitalaPTT2021-08-27 20:34:26 Test Item Value Reference Range Interpretation Comments APTT Patient (test code = See_Comment [ Automated message] 3173-2) The system [facility] generated this result transmitted ref erence range: 23 - 38 Seconds. The re ference range was not u sed to interpret this result as normal/abnor mal. MARIA ESTHER (test code = MARIA ESTHER) Lab Interpretation (test Normal code = 85004-8) [facility] HospitalPROTHROMBIN TIME / [id number] 20:32:29 Test Item Value Reference Range Interpretation Comments PROTIME PATIENT (test See_Comment [Auto mated message] code = 5964-2) The system [employer] generated this result transmitted ref erence range: 12.0 - 1 4.7 Seconds. The re ference range was not u sed to interpret this result as normal/abnor mal. INR (test code = 6301-6) Lab Interpretation (test Normal code = 58131-3) [facility] HospitalCBC WITH [id number] 20:25:44 Test Item Value Reference Range Interpretation Comments WBC (test code = See_Comment [Automated 6690-2) message] The sy stem which generated this result transmitted reference range : 4.20 - 10.70 10*3/?L. The reference range was not used to interpret this result as normal/abnormal . RBC (test code = See_Comment [Automated 789-8) message] The sy stem which generated this [...] RDW-SD (test code = 40.9 fL 38.5-51.6 50694-0) RDW-CV (test code = 12.4 % 12.1-15.4 788-0) PLT (test code = See_Comment [Automated 777-3) message] The sy stem which generated this result transmitted reference range : 150 - 328 10*3/ ?L. The reference r gloria was not used to interpret this result as normal/abnormal . MPV (test code = 10.6 fL 9.8-13.0 21273-6) NRBC/100 WBC (test See_Comment [Automat ed code = 4100260828) message] The system which generated this result transmitted reference range : 0.0 - 10.0 /100 WBCs. The refer ence range was not u sed to interpret th is result as normal/abnormal . NRBC x10^3 (test code <0.01 See_Comment [Auto mated = 4753886487) message] The s ystem which generated this result transmitted reference range : 10*3/?L. The reference range was not used to interpret this result as normal/abnormal . GRAN MAT (NEUT) % 51.5 % (test code = 770-8) IMM GRAN % (test code 0.40 % = 6757003367) LYMPH % (test code = 34.3 % 736-9) MONO % (test code = 10.2 % 5905-5) EOS % (test code = 2.4 % 713-8) BASO % (test code = 1.2 % 706-2) GRAN MAT x10^3(ANC) 4.98 10*3/uL 1.99-6.95 (test code = 2261530433) IMM GRAN x10^3 (test 0.04 10*3/uL 0.00-0.06 code = 4205652236) LYMPH x10^3 (test code 3.32 10*3/uL 1.09-3.23 H = 731-0) MONO x10^3 (test code 0.99 10*3/uL 0.36-1.02 = 742-7) EOS x10^3 (test code = 0.23 10*3/uL 0.06-0.53 711-2) BASO x10^3 (test code 0.12 10*3/uL 0.01-0.09 H = 704-7) Lab Interpretation Abnormal (test code = 10474-9) [facility]"
[2023-05-28 08:06] LABS: Absolute Lymphocytes (CBC) 2.7 K/uL (0.7-4.9); Hematocrit 43.6 % (39.6-49.0); Lymphocytes % 44.3 % (15.3-44.8); MCV 90.1 fL (80-100); MPV 9.7 fL (7.6-11.3); Platelets 243 thou/uL (152-406); RBC Red Blood Cell Count 4.83 M/uL (4.33-5.43)
--- NOTE | 2023-05-28 08:11 | RAD REPORT ---
EXAM DESCRIPTION: CTAbdomen Pelvis W Contrast - 05/28/2023 8:02 am CLINICAL HISTORY: Abdominal pain. ABD PAIN COMPARISON: Abdomen Pelvis W Contrast dated 09/06/2018 TECHNIQUE: Biphasic CT imaging of the abdomen and pelvis was performed with 100 ml non-ionic IV cont rast. All CT scans are performed using dose optimization technique as appropriate and may include automated exposure control or mA/KV adjustment according to patient size. FINDINGS: The lung bases are clear. The liver, spleen, pancreas, adrenal glands and kidneys are within normal limits. No bowel obstruction, free air, free fluid or abscess. The appendix is normal. No evidence of signi ficant lymphadenopathy. No suspicious bony findings. IMPRESSION: No acute intra-abdominal or pelvic finding.
[2023-05-28] MEDS ORDERED: ONDANSETRON 4 MG/2 ML VIAL ONE ×3 (08:12→15:54)
[2023-05-28] MEDS ORDERED: NA CHLORIDE 0.9% 1,000 ML ONE ×2 (08:12→09:21)
[2023-05-28] MEDS ORDERED: MORPHINE 4 MG/ML SYR ONE (08:12)
[2023-05-28] MEDS ORDERED: FAMOTIDINE 20 MG/2 ML VIAL IV ONE (08:12)
[2023-05-28 08:22] LABS: Albumin 4.2 g/dL (3.4-5.0); Bilirubin Total 0.8 mg/dL (0.2-1.0); Potassium 3.3 mEq/L (3.5-5.1); Protein, Total 8.3 g/dL (6.4-8.2); Specific Gravity 1.028 (1.005-1.030); Urine Bacteria None Seen /HPF (<20); Urine Bilirubin NEGATIVE (Negative); Urine Blood Negative (Negative); Urine Clarity Turbid (Clear); Urine Color Yellow (Yellow); Urine Glucose NEGATIVE (Negative); Urine Mucus 4+ /HPF (None Seen); Urine Protein 1+ (Negative); Urine RBC <5 /HPF (None Seen); Urine Urobilinogen Normal (Normal); Urine pH 6.5 (5.0-7.0)
--- NOTE | 2023-05-28 08:38 | RAD REPORT ---
EXAM DESCRIPTION: US - Abdomen Exam Limited - 05/28/2023 8:24 am CLINICAL HISTORY: ABD PAIN COMPARISON: No comparisons FINDINGS: The gallbladder demonstrates extensive cholelithiasis. No pericholecystic fluid or gallbla dder wall thickening. The common bile duct is normal measuring 2 mm. The liver demonstrates no findings of intrahepatic biliary dilatation. IMPRESSION: Extensive cholelithiasis.
--- NOTE | 2023-05-28 09:20 | EDPHYS ---
Physician Documentation [facility] Name: Chang Cr Age: 28 yrs Sex: Male : 1995 Arrival Date: 05/28/2023 Time: 07:36 Bed 19 Private MD: ED Physician Sandro Rogers HPI: 05/28 09:03 This 28 yrs old Male presents to ER via Ambulatory with complaints of Pain, bessie Vomiting. 09:03 The patient presents to the emergency department with nausea, vomiting, that is bessie continuous. Onset: The symptoms/episode began/occurred 2 day(s) ago. Possible causes: unknown. The symptoms are aggravated by movement, pressure, food , The symptoms are alleviated by remaining still. Associated signs and symptoms: Pertinent positives: abdominal pain, nausea, vomiting. Severity of symptoms: At their worst the symptoms were moderate in the emergency department the symptoms are unchanged. The patient has experienced similar episodes in the past, multiple times. Historical: - Allergies: 07:47 No Known Allergies; rs5 - PMHx: 07:47 Depression; Hypothyroidism; Lower GI Bleed; rs5 - Immunization history:: Adult Immunizations unknown. - Social history:: Smoking status: Patient denies any tobacco usage or history of. ROS: 09:10 Constitutional: Negative for fever, chills, and weight loss, Eyes: Negative for injury, bessie pain, redness, and discharge, ENT: Negative for injury, pain, and discharge, Neck: Negative for injury, pain, and swelling, Cardiovascular: Negative for chest pain, palpitations, and edema, Respiratory: Negative for shortness of breath, cough, wheezing, and pleuritic chest pain, Back: Negative for injury and pain, : Negative for injury, bleeding, discharge, and swelling, MS/Extremity: Negative for injury and deformity, Skin: Negative for injury, rash, and discoloration, Neuro: Negative for headache, weakness, numbness, tingling, and seizure, Psych: Negative for depression, anxiety, suicide ideation, homicidal ideation, and hallucinations, Allergy/Immunology: Negative for hives, rash, and allergies, Endocrine: Negative for neck swelling, polydipsia, polyuria, polyphagia, and marked weight changes, Hematologic/Lymphatic: Negative for swollen nodes, abnormal bleeding, and unusual bruising, 09:10 Abdomen/GI: Positive for abdominal pain, nausea, vomiting, abdominal cramps, of the right upper quadrant, Exam: 09:10 Constitutional: This is a well developed, well nourished patient who is awake, alert, bessie and in no acute distress. Head/Face: Normocephalic, atraumatic. Eyes: Pupils equal round and reactive to light, extra-ocular motions intact. Lids and lashes normal. Conjunctiva and sclera are non-icteric and not injected. Cornea within normal limits. Periorbital areas with no swelling, redness, or edema. ENT: Nares patent. No nasal discharge, no septal abnormalities noted. Tympanic membranes are normal and external auditory canals are clear. Oropharynx with no redness, swelling, or masses, exudates, or evidence of obstruction, uvula midline. Mucous membranes moist. Neck: Trachea midline, no thyromegaly or masses palpated, and no cervical lymphadenopathy. Supple, full range of motion without nuchal rigidity, or vertebral point tenderness. No Meningismus. Chest/axilla: Normal chest wall appearance and motion. Nontender with no deformity. No lesions are appreciated. Cardiovascular: Regular rate and rhythm with a normal S1 and S2. No gallops, murmurs, or rubs. Normal PMI, no JVD. No pulse deficits. Respiratory: Lungs have equal breath sounds bilaterally, clear to auscultation and percussion. No rales, rhonchi or wheezes noted. No increased work of breathing, no retractions or nasal flaring. Back: No spinal tenderness. No costovertebral tenderness. Full range of motion. Male : Normal genitalia with no discharge or lesions. Skin: Warm, dry with normal turgor. Normal color with no rashes, no lesions, and no evidence of cellulitis. MS/ Extremity: Pulses equal, no cyanosis. Neurovascular intact. Full, normal range of motion. Neuro: Awake and alert, GCS 15, oriented to person, place, time, and situation. Cranial nerves II-XII grossly intact. Motor strength 5/5 in all extremities. Sensory grossly intact. Cerebellar exam normal. Normal gait. Psych: Awake, alert, with orientation to person, place and time. Behavior, mood, and affect are within normal limits. 09:10 Abdomen/GI: Inspection: abdomen appears normal, Bowel sounds: normal, Palpation: moderate abdominal tenderness, in the right upper quadrant, Vital Signs: 07:45 BP 149 / 92; Pulse 78; Resp 17; Temp 97.8(TE); Pulse Ox 99% ; rs5 08:05 BP 144 / 88; Pulse 74; Resp 18; Pulse Ox 99% ; rs5 09:10 BP 149 / 92; Pulse 71; Resp 17; Pulse Ox 99% on R/A; rs5 10:15 BP 136 / 96; Pulse 75; Resp 16; Pulse Ox 99% on R/A; rs5 12:00 BP 133 / 75; Pulse 72; Resp 17; Pulse Ox 99% on R/A; rs5 13:00 BP 123 / 74; Pulse 88; Resp 19 S; Pulse Ox 99% on R/A; aa5 MDM: 07:43 Patient medically screened. [facility] 09:12 Differential diagnosis: Nonspecific abd pain, gastritis, cholecystitis, pancreatitis, bessie appendicitis, diverticulitis, viral gastroenteritis, gastroenteritis. Data reviewed: vital signs, nurses notes, lab test result(s), radiologic studies, CT scan, ultrasound. Consideration of Admission/Observation Patient was admitted/placed on observation. Escalation of care including admission/observation considered. I considered the following discharge prescriptions or medication management in the emergency department Medications were administered in the Emergency Department. See MAR. Test considered but Not performed: MRI: no mrcp. Care significantly affected by the following chronic conditions: depression, gi bleed, hypothyroid. 05/28 07:48 Order name: CBC with Diff; Complete Time: 08:23 [facility] 05/28 07:48 Order name: CMP; Complete Time: 08:23 [facility] 05/28 07:48 Order name: Lipase; Complete Time: 08:23 [facility] 05/28 07:48 Order name: Urinalysis w/ reflexes; Complete Time: 08:23 [facility] 05/28 09:28 Order name: Basic Metabolic Panel EDMS 05/28 09:28 Order name: Basic Metabolic Panel EDMS 05/28 09:28 Order name: CBC with Automated Diff EDMS 05/28 09:28 Order name: CBC with Automated Diff EDMS 05/28 09:28 Order name: Lipase EDMS 05/28 09:28 Order name: Lipase EDMS 05/28 09:28 Order name: Liver (Hepatic) Function EDMS 05/28 09:28 Order name: Liver (Hepatic) Function EDMS 05/28 07:48 Order name: Abdomen Limited US; Complete Time: 08:46 [facility] 05/28 07:48 Order name: CT Abd/Pelvis - IV Contrast Only; Complete Time: 08:23 [facility] 05/28 07:48 Order name: IV Saline Lock; Complete Time: 07:59 [facility] 05/28 07:48 Order name: Labs collected and sent; Complete Time: 07:59 [facility] Administered Medications: 08:25 Drug: NS 0.9% IV 1000 ml IV at 1 bolus Per protocol; 1000 mL bolus Route: IV; Rate: 1 rs5 bolus; Site: right antecubital; 08:40 Follow up: Response: No adverse reaction rs5 08:25 Drug: Famotidine IVP 20 mg IVP once; dilute with 10 mL 0.9% NaCl; give over 2 minutes rs5 Route: IVP; Site: right antecubital; 08:42 Follow up: Response: No adverse reaction; Pain is decreased rs5 08:25 Drug: Ondansetron IVP 4 mg IVP once; over 2 minutes Route: IVP; Site: right antecubital;rs5 08:40 Follow up: Response: No adverse reaction; Nausea is decreased rs5 08:25 Drug: morphine IVP or IV 4 mg IVP once over 4 mins Route: IVP; Infused Over: 4 mins; rs5 Site: right antecubital; 08:40 Follow up: Response: No adverse reaction; Pain is decreased rs5 09:18 Drug: Piperacillin-Tazobactam IVPB 3.375 grams IVPB once over 60 mins; (mix in NS 100 rs5 mL) Route: IVPB; Infused Over: 60 mins; Site: right antecubital; 09:40 Follow up: Response: No adverse reaction rs5 09:18 Drug: NS 0.9% IV 1000 ml IV at 1 bolus Per protocol; 1000 mL bolus Route: IV; Rate: 1 rs5 bolus; Site: right antecubital; 09:40 Follow up: Response: No adverse reaction rs5 12:57 Drug: MethylPrednisoLONE IVP 125 mg IVP once Route: IVP; Site: right antecubital; aa5 13:12 Follow up: Response: No adverse reaction; Marked relief of symptoms aa5 12:57 Drug: diphenhydrAMINE IVP 50 mg IVP once Route: IVP; Site: right antecubital; aa5 13:12 Follow up: Response: No adverse reaction; Marked relief of symptoms aa5 Disposition Summary: 05/28/23 09:19 Hospitalization Ordered Notes: Hospitalization Status: Observation bessie Provider: Chris Mcneal cha Location: Telemetry/MedSurg (observation) bessie Condition: Stable bessie Problem: new bessie Symptoms: have improved bessie Bed/Room Type: Standard [facility] Room Assignment: bessie Diagnosis - Cholecystitis, unspecified bessie - Other cholelithiasis without obstruction bessie - Epigastric abdominal tenderness bessie - Hypokalemia bessie Forms: - Medication Reconciliation Form bessie - SBAR form bessie - Leadership Thank You Letter bessie Signatures: Dispatcher [employer] EDSandro Walker MD MD cha Calderon, Audri RN RN aa5 Nathanael Che RN RN rs5 Corrections: (The following items were deleted from the chart) 07:47 07:47 PSHx: None; rs5 rs5
--- NOTE | 2023-05-28 09:20 | ER ---
Nurse's Notes [facility] Name: Chang Cr Age: 28 yrs Sex: Male : 1995 Arrival Date: 05/28/2023 Time: 07:36 Bed 19 Private MD: Diagnosis: Cholecystitis, unspecified;Other cholelithiasis without obstruction;Epigastric abdominal tenderness;Hypokalemia Presentation: 05/28 07:45 Chief complaint: Patient states: N/V, and RUQ abdominal pain for 2 days. Coronavirus rs5 screen: At this time, the client does not indicate any symptoms associated with coronavirus-19. Ebola Screen: No symptoms or risks identified at this time. Initial Sepsis Screen: Does the patient meet any 2 criteria? No. Patient's initial sepsis screen is negative. Does the patient have a suspected source of infection? No. Patient's initial sepsis screen is negative. Risk Assessment: Do you want to hurt yourself or someone else? Patient reports no desire to harm self or others. Onset of symptoms was May 26, 2023. 07:45 Method Of Arrival: Ambulatory rs5 07:45 Acuity: PAO 3 rs5 Historical: - Allergies: 07:47 No Known Allergies; rs5 - PMHx: 07:47 Depression; Hypothyroidism; Lower GI Bleed; rs5 - Immunization history:: Adult Immunizations unknown. - Social history:: Smoking status: Patient denies any tobacco usage or history of. Screenin:45 [facility] ED Fall Risk Assessment (Adult) History of falling in the last 3 months, rs5 including since admission No falls in past 3 months (0 pts) Confusion or Disorientation No (0 pts) Intoxicated or Sedated No (0 pts) Impaired Gait No (0 pts) Mobility Assist Device Used No (0 pt) Altered Elimination No (0 pt) Score/Fall Risk Level 0 - 2 = Low Risk Oriented to surroundings, Maintained a safe environment. 07:45 Abuse screen: Denies threats or abuse. Nutritional screening: No deficits noted. rs5 Tuberculosis screening: No symptoms or risk factors identified. Assessment: 07:45 General: Appears distressed, uncomfortable, Behavior is cooperative. Pain: Complains of rs5 pain in upper abdomen Pain does not radiate. Pain currently is 8 out of 10 on a pain scale. Quality of pain is described as burning, aching, Pain began 2-3 days ago. Is continuous, Aggravated by eating, drinking. Neuro: Level of Consciousness is awake, alert, obeys commands, Oriented to person, place, time, situation. Cardiovascular: Heart tones S1 S2 present Rhythm is regular. Respiratory: Airway is patent Respiratory effort is even, unlabored, Respiratory pattern is regular, symmetrical, Breath sounds are clear bilaterally. GI: Abdomen is round non-distended, Bowel sounds present X 4 quads. Abdomen is tender to palpation in epigastric area Reports nausea, vomiting. : : No signs and/or symptoms were reported regarding the genitourinary system. EENT: No signs and/or symptoms were reported regarding the EENT system. Derm: Skin is intact, Skin is dry, Skin is normal, Skin temperature is warm. Musculoskeletal: Range of motion: intact in all extremities. 08:40 Reassessment: Patient and/or family updated on plan of care and expected duration. Pain rs5 level reassessed. Patient is alert, oriented x 3, equal unlabored respirations, skin warm/dry/pink. Pain: Complains of pain in epigastric area Pain does not radiate. Pain currently is 5 out of 10 on a pain scale. Quality of pain is described as aching, Is continuous. 08:40 GI: Patient currently denies nausea, vomiting. rs5 10:05 Reassessment: No changes from previously documented assessment. rs5 10:30 Reassessment: Pt ambulated to restroom independently, steady gate. rs5 11:57 Reassessment: Patient and/or family updated on plan of care and expected duration. Pain rs5 level reassessed. Patient is alert, oriented x 3, equal unlabored respirations, skin warm/dry/pink. 12:53 Reassessment: Patient is alert, oriented x 3, equal unlabored respirations, skin aa5 warm/dry/pink. Pt c/o acute onset of burning sensation, itching, and redness to left arm. Dr. Rogers was notified. . 13:16 Reassessment: Patient is alert, oriented x 3, equal unlabored respirations, skin aa5 warm/dry/pink. Patient states symptoms have improved. Redness still noted to left arm, pt report itchiness has improved significantly, appears comfortable. . Vital Signs: 07:45 BP 149 / 92; Pulse 78; Resp 17; Temp 97.8(TE); Pulse Ox 99% ; rs5 08:05 BP 144 / 88; Pulse 74; Resp 18; Pulse Ox 99% ; rs5 09:10 BP 149 / 92; Pulse 71; Resp 17; Pulse Ox 99% on R/A; rs5 10:15 BP 136 / 96; Pulse 75; Resp 16; Pulse Ox 99% on R/A; rs5 12:00 BP 133 / 75; Pulse 72; Resp 17; Pulse Ox 99% on R/A; rs5 13:00 BP 123 / 74; Pulse 88; Resp 19 S; Pulse Ox 99% on R/A; aa5 ED Course: 07:39 Patient arrived in ED. mg5 07:41 Nathanael Che, RN is Primary Nurse. rs5 07:43 Sandro Rogers MD is Attending Physician. bessie 07:46 Triage completed. rs5 07:47 Arm band placed on right wrist. rs5 07:47 Patient has correct armband on for positive identification. Bed in low position. Call rs5 light in reach. Side rails up X2. 08:04 CT Abd/Pelvis - IV Contrast Only In Process Unspecified. EDMS 08:14 Abdomen Limited US In Process Unspecified. EDMS 09:03 No provider procedures requiring assistance completed. rs5 09:16 Chris Mcneal MD is Hospitalizing Provider. bessie 13:17 Patient admitted, IV remains in place. aa5 Administered Medications: 08:25 Drug: NS 0.9% IV 1000 ml IV at 1 bolus Per protocol; 1000 mL bolus Route: IV; Rate: 1 rs5 bolus; Site: right antecubital; 08:40 Follow up: Response: No adverse reaction rs5 08:25 Drug: Famotidine IVP 20 mg IVP once; dilute with 10 mL 0.9% NaCl; give over 2 minutes rs5 Route: IVP; Site: right antecubital; 08:42 Follow up: Response: No adverse reaction; Pain is decreased rs5 08:25 Drug: Ondansetron IVP 4 mg IVP once; over 2 minutes Route: IVP; Site: right antecubital;rs5 08:40 Follow up: Response: No adverse reaction; Nausea is decreased rs5 08:25 Drug: morphine IVP or IV 4 mg IVP once over 4 mins Route: IVP; Infused Over: 4 mins; rs5 Site: right antecubital; 08:40 Follow up: Response: No adverse reaction; Pain is decreased rs5 09:18 Drug: Piperacillin-Tazobactam IVPB 3.375 grams IVPB once over 60 mins; (mix in NS 100 rs5 mL) Route: IVPB; Infused Over: 60 mins; Site: right antecubital; 09:40 Follow up: Response: No adverse reaction rs5 09:18 Drug: NS 0.9% IV 1000 ml IV at 1 bolus Per protocol; 1000 mL bolus Route: IV; Rate: 1 rs5 bolus; Site: right antecubital; 09:40 Follow up: Response: No adverse reaction rs5 12:57 Drug: MethylPrednisoLONE IVP 125 mg IVP once Route: IVP; Site: right antecubital; aa5 13:12 Follow up: Response: No adverse reaction; Marked relief of symptoms aa5 12:57 Drug: diphenhydrAMINE IVP 50 mg IVP once Route: IVP; Site: right antecubital; aa5 13:12 Follow up: Response: No adverse reaction; Marked relief of symptoms aa5 Medication: 09:03 VIS not applicable for this client. rs5 Outcome: 09:19 Decision to Hospitalize by Provider. bessie 13:17 Admitted to OR accompanied by nurse, via wheelchair, with chart, Other Report given to aa5 Ailyn, OR nurse 13:17 Condition: stable 13:17 Instructed on the need for admit, Demonstrated understanding of instructions, 13:18 Patient left the ED. aa5 Signatures: Dispatcher [employer] EDSandro Walker MD MD cha Calderon, Audri, RN RN aa5 Nathanael Che RN RN rs5 Flora Escalante mg5 Corrections: (The following items were deleted from the chart) 07:47 07:47 PSHx: None; rs5 rs5 13:16 12:55 Reassessment: Patient is alert, oriented x 3, equal unlabored respirations, skin aa5 warm/dry/pink. Pt c/o acute onset of burning sensation, itching, and redness to left arm. Dr. Rogers was notified. . aa5
[2023-05-28] MEDS ORDERED: NA CHLORIDE 0.9% 100 ML ONE (09:21)
[2023-05-28] MEDS ORDERED: PIPERACIL/TAZO 3.375 GM VIAL IV ONE (09:21)
[2023-05-28] MEDS ORDERED: MORPHINE 4 MG/ML SYR IV PRN (09:24)
[2023-05-28] MEDS ORDERED: ONDANSETRON 4 MG/2 ML VIAL IV PRN (09:24)
[2023-05-28] MEDS ORDERED: ACETAMINOPHEN 325 MG TABLET PO PRN (09:28)
[2023-05-28] MEDS ORDERED: PIPER TAZO 3.375 GM in NA CHLORIDE 0.9% 100 ML IV SCH (09:45)
[2023-05-28] MEDS: FAMOTIDINE 20 MG/2 ML VIAL IV SCH ×2 (10:00→21:01)
[2023-05-28] MEDS ORDERED: METHYLPREDNISOLONE 125 MG INJ ONE (13:09)
[2023-05-28] MEDS ORDERED: DIPHENHYDRAMINE 50 MG/ML VIAL ONE (13:10)
[2023-05-28] MEDS ORDERED: Ringers Lactate 1,000 ML IV ONE (13:34)
[2023-05-28] MEDS ORDERED: FENTANYL CITR 100 MCG/2 ML ONE ×2 (14:21→14:59)
[2023-05-28] MEDS ORDERED: propofoL 200 MG/20 ML VIAL IV ONE (14:21)
[2023-05-28] MEDS ORDERED: ROCURONIUM 50 MG/5 ML VIAL IV ONE (14:22)
[2023-05-28] MEDS ORDERED: MIDAZOLAM HCL 2 MG/2 ML INJ ONE (14:22)
--- NOTE | 2023-05-28 14:25 | P.HP ---
Date of Service: 05/28/23 PC: This patient presented to the emergency room with severe right upper quadrant abdominal pain for diagnosis and treatment. HPC: Patient has been experiencing right upper quadrant abdominal pain off and on for the last couple of months. Pain intensified yesterday and he came for evaluation. Describes it as being severe, passing through to his back, located more towards the center part of his abdomen just below the xiphoid. PSHx: Negative PMHx: Negative Social Hx: Allergic to penicillin, morphine, and tazobactam Sys R: No cough, wheeze, shortness of breath. No chest pain or palpitations. Denies any urinary complaints O/E: Awake alert still slightly uncomfortable HEENT: Not jaundiced Chest: Chest movement equal bilaterally Abd: Tender in the upper abdomen right side [facility]: Intact Data: Has documented gallstones Impression: Acute on chronic cholecystitis with cholelithiasis, biliary colic Plan: I will take him to the operating room for laparoscopic possible open cholecystectomy with a cholangiogram. The risks of this procedure have been discussed. The possibility of bleeding, infection, injury to bile ducts blood vessels of intestines have been described. The possible need for an open and or further surgeries and procedures was discussed. He understands and wants to proceed.
[2023-05-28] MEDS ORDERED: LIDOCAINE 2% MPF 5 ML VIAL ONE (14:26)
[2023-05-28] MEDS ORDERED: dexAMETHasone 4 MG/ML VIAL ONE (14:45)
[2023-05-28] MEDS ORDERED: GLYCOPYRROLATE 0.2 MG/ML SYR ONE (15:01)
[2023-05-28] MEDS ORDERED: EPHEDRINE SULF 50 MG/ML VIAL ONE (15:04)
[2023-05-28] MEDS ORDERED: NEOSTIGMINE 1 MG/ML -10 ML VIAL ONE (15:23)
[2023-05-28] MEDS ORDERED: KETOROLAC 30 MG/ML INJ ONE (15:24)
--- NOTE | 2023-05-28 15:24 | P.OP ---
Preoperative diagnosis: Cholecystitis with cholelithiasis, biliary colic Postoperative diagnosis: The same Primary procedure: Laparoscopic cholecystectomy Secondary procedure: Cholangiogram Anesthesia: General Estimated blood loss: Less than 10 cc Specimen: 1 gallbladder and contents Operative Technique: The patient brought the operating room placed supine on the table. After the i nduction of adequate general endotracheal anesthesia, the area of the abdomen is prepped with DuraPrep solution, he was draped in usual aseptic manner. A subumbilical incision was made. This brought down through the skin and subcutaneous tissue. The Visiport was used to enter the peritoneal cavity and created pneumoperitoneum to approximately 12 mmHg. Under direct vision a 5 mm trocar was placed in the upper midline, and 2 other 5 mm trocars on the right lateral side of the abdomen The patient was then placed in reverse Trendelenburg. The table was tilted to the left. We could visualize the right upper quadrant. We immediately saw that he had an acutely inflamed gallbladder with a marked amount of adhesions adherent to the serosal surface. These were gently taken down using blunt and sharp dissection. We were now able to place a grasper on the fundus of the gallbladder. The down by Talley's. Pouch. Applying lateral traction we exposed both the cystic duct and artery. Having obtained a critical view, a clip was placed between the gallbladder and the cystic duct. No bleeding is made into the cystic duct through which we obtained a cholangiogram the cholangiogram initially was in too far in the common bile duct and after gently pulling it back we are able to demonstrate the extrahepatic biliary tree. No filling defects were noted. The catheter was removed. Clips were now placed on the distal portion of the cystic duct securing it. Attention was turned towards the cystic artery which was dealt with in a similar fashion. At this point the gallbladder was now dissected free from the liver bed, placed into the Endo Catch, and brought out through the umbilical trocar site attention was turned towards the umbilicus. It was necessary to place to absorbable s utures to try and approximate the fascia. The defect having been closed, the abdomen was inspected to ensure adequate hemostasis. The irrigated fluid was aspirated from the liver bed and around the right paracolic gutter. The pneumoperitoneum was now collapsed, and the trocars were removed. Akira were then applied to the skin. At the end of the procedure he was in a stable condition was sent to the recovery room. Needle sponge and instrument count were correct. Complications: None Transferred to: Recovery Room Condition: Good
[2023-05-28] MEDS: MEPERIDINE HCL 25 MG/ML SYR ONE ×2 (15:40→15:45)
--- NOTE | 2023-05-28 15:41 | RAD REPORT ---
EXAM DESCRIPTION: RAD - Cholangiogram Oper-Xray Or - 05/28/2023 3:10 pm CLINICAL HISTORY: LAP DOMENIC WITH IOC COMPARISON: Abdomen Pelvis W Contrast dated 05/28/2023 FINDINGS/IMPRESSION: Multiple intraoperative fluoroscopic images were submitted showing an intraoper ative cholangiogram. No filling defects in the common bile duct. No biliary ductal dilatation. Fluoro time: 12.5 seconds Cumulative dose: 2.15 mGy
[2023-05-28] MEDS: HYDROMORPHONE HCL 1 MG/ML INJ ONE ×4 (15:42→16:02)
[2023-05-28 16:21] VITALS: O2SAT 96
[2023-05-28] MEDS: NS KCL 20MEQ 20 MEQ/1,000 ML BAG IV SCH ×2 (17:00→17:22)
[2023-05-28] MEDS: TRAMADOL 37.5mg/APAP 325mg PER TAB PO PRN (17:00)
[2023-05-28 17:34] VITALS: BMI 29.5
[2023-05-29] MEDS: TRAMADOL 37.5mg/APAP 325mg PER TAB PO PRN ×2 (01:23→13:37)
[2023-05-29] MEDS: NS KCL 20MEQ 20 MEQ/1,000 ML BAG IV SCH ×2 (01:24→09:27)
[2023-05-29 02:48] LABS: Absolute Lymphocytes (CBC) 0.8 K/uL (0.7-4.9); Hematocrit 38.3 % (39.6-49.0); Lymphocytes % 10.4 % (15.3-44.8); MCV 90.4 fL (80-100); MPV 10.4 fL (7.6-11.3); Platelets 234 thou/uL (152-406); RBC Red Blood Cell Count 4.24 M/uL (4.33-5.43)
[2023-05-29 03:09] LABS: Albumin 3.8 g/dL (3.4-5.0); Bilirubin Direct 0.2 mg/dL (0-0.2); Bilirubin Indirect, Calculated 0.6 mg/dL (0.2-0.8); Bilirubin Total 0.8 mg/dL (0.2-1.0); Potassium 4.2 mEq/L (3.5-5.1); Protein, Total 7.4 g/dL (6.4-8.2)
[2023-05-29 04:47] LABS: Blood Morphology Comment NOT SEEN (NOT SEEN); Platelet Estimate ADEQ
[2023-05-29] MEDS: FAMOTIDINE 20 MG/2 ML VIAL IV SCH (09:26)
--- NOTE | 2023-05-29 14:13 | P.DS ---
Admission Date: 05/28/23 Discharge Date: 05/29/23 Disposition: ROUTINE DISCHARGE Discharge Condition: GOOD Procedures: Laparoscopic cholecystectomy with intraoperative cholangiogram Brief History of Present Illness: Patient presented to the emergency room with severe right upper quadrant abdominal pain, radiating to his back. Pain has been going on for a few months. His brother recently had his gallbladder out so I thought he had the same thing. In the emergency was found to have gallstones with Marleni cystitis. Hospital Course: Patient brought the operating room where he underwent a laparoscopic cholecystectomy with a normal intraoperative cholangiogram. He tolerated the procedure well. Today he is up ambulating, tolerating a diet, was deemed fit for discharge. Vital Signs/Physical Exam: Temp Pulse Resp BP Pulse Ox 98.0 F 62 14 138/72 97 05/29/23 08:00 05/29/23 08:00 05/29/23 08:00 05/29/23 08:00 05/29/23 08:00 Laboratory Data at Discharge: WBC 7.30 thou/uL (4.3-10.9) 05/29/23 02:03 Hgb 13.2 g/dL (13.6-17.9) L D 05/29/23 02:03 Hct 38.3 % (39.6-49.0) L 05/29/23 02:03 Plt Count 234 thou/uL (152-406) 05/29/23 02:03 Sodium 137 mEq/L (136-145) 05/29/23 02:03 Potassium 4.2 mEq/L (3.5-5.1) D 05/29/23 02:03 BUN 9 mg/dL (7-18) 05/29/23 02:03 Creatinine 0.93 mg/dL (0.70-1.30) 05/29/23 02:03 Glucose 143 mg/dL (74-106) H 05/29/23 02:03 Total Bilirubin 0.8 mg/dL (0.2-1.0) 05/29/23 02:03 AST 28 U/L (15-37) 05/29/23 02:03 ALT 49 U/L (16-61) 05/29/23 02:03 Alkaline Phosphatase 77 U/L (45-117) D 05/29/23 02:03 Lipase 27 U/L (13-75) 05/29/23 02:03 Physician Discharge Instructions: DC IV, DC home. Diet as tolerated. Continue incentive spirometry. Change dressing as needed. You may shower. Call my office for an appointment for next week. Diet: Regular Activity: Ad caleb Followup: NONE,NONE [Primary Care Provider] -
[2023-05-29 16:11] VITALS: BP 139/73; TEMP 98.5
== END 2023-05-29 18:00 | disposition home or self-care (01) ==
LOC: ER 07:36 → ERHOLD 09:34 → 2ND 13:42
PROVIDERS: ADMIT Surgery; ATTEND Surgery
PROC: BF10YZZ Fluoroscopy of Bile Ducts using Other Contrast (ICD-10-PCS; 2023-05-28)
PROC: 0FT44ZZ Resection of Gallbladder, Percutaneous Endoscopic Approach (ICD-10-PCS; principal; 2023-05-28 15:00)
DX: K80.44 Calculus of bile duct with chronic cholecystitis without obstruction (principal); E03.9 Hypothyroidism, unspecified; F32.A Depression, unspecified; E87.6 Hypokalemia
CPT/HCPCS: 36415; 74177; 74300; 76705; 80048; 80053; 80076; 81001; 83690; 85025; 88304; 96374; 96375; 99285; G0378; J1100; J1170; J1200; J2001; J2175; J2250; J2405; J2543; J2704; J2710; J2930; J3010; J3480; J7030; J7120; Q9967